=== PATIENT | female | born 1955 | race Caucasian/White ===

== ENCOUNTER → 2017-07-26 11:36 | Outpatient (CLI) | payer BC, SELFPAY ==
--- NOTE | 2017-07-26 | DI.CT.S_ITS ---
PROCEDURE: CT LUMBAR SPINE WO/W CON INDICATIONS: Low back pain with right greater than left sciatica symptoms TECHNIQUE: After the administration of intravenous Isovue contrast, 3 mm thick sections acquired through the levels of interest. Sagittal and coronal reformats were then constructed. For radiation dose reduction, the following was used: automated exposure control. COMPARISON: [facility], US, ABDOMEN COMPLETE, 04/06/2014, 12:58. [facility], MR, L-SPINE WITHOUT CONTRAST, 02/06/2009, 16:56. [facility], CR, THORACIC SPINE 2 VIEWS, 09/27/2014, 19:29. FINDINGS: Image quality: Excellent. Bones: Postoperative changes are seen, with bilateral pedicle screws at the L2-S1 levels. Iliac wing screws are also seen. The screws appear well placed. Disc spacers are seen at the L2-L3, L3-L4, L4-L5, and L5-S1 levels. Vertical fixation rods are seen. No findings of hardware failure or hardware loosening are seen. There has been removal of portions of the posterior elements. Bone grafting material is noted. 5 nonrib-bearing, lumbar type vertebral bodies are seen. No acute appearing fractures are seen. No suspicious lytic or blastic lesions can be seen. Mild levoconvex scoliotic curvature is noted.. T11-T12: Moderate loss of disc height is seen. Endplate irregularity and sclerosis are seen. Bridging anterior and left sided osteophytes are seen. Moderate disc bulge is seen. Moderate bilateral neural foraminal narrowing is seen. Mild central canal narrowing is seen. T12-L1: Severe loss of disc height is seen. A degree of bony fusion is seen centrally and inferiorly. Posteriorly directed endplate osteophytes are seen, particularly on the left side, as on series 2 image 17. Moderate central canal narrowing is seen. There is moderate to severe left-sided and moderate right-sided neural foraminal narrowing seen. L1-L2: Moderate loss of disc height is seen. Loss of disc signal is seen. Moderate disc bulge is seen, which is eccentric to the left. There is moderate right-sided and at least moderate left-sided neural foraminal narrowing seen. [id number]-[id number] central canal narrowing is seen. L2-L3: A degree of vertebral body fusion can be seen at this level. Endplate sclerosis is seen. Moderate disc bulge is seen at this level. There is moderate to severe bilateral neural foraminal narrowing seen. Moderate central canal narrowing is seen. L3-L4: A degree of vertebral body fusion can be seen at this level. Posteriorly directed endplate osteophytes are seen. There is mild to moderate left-sided and moderate right-sided neural foraminal narrowing seen. The central canal is widely patent. L4-L5: Mild anterolisthesis is seen at this level. Mujk-ep-dvpwhpek disc bulge is seen. There is mild to moderate left-sided and moderate to severe right-sided neural foraminal narrowing seen. The central canal is widely patent. L5-S1: A degree of vertebral body fusion is seen at this level. Posterior directed endplate osteophytes are seen. There is moderate to severe left-sided and moderate right-sided neural foraminal narrowing seen. No central canal narrowing can be seen. Soft tissues: Atherosclerotic calcification seen of the aorta and iliac arteries. The visualized posterior medial abdominal and retroperitoneal structures are unremarkable. On postcontrast imaging, no findings of significant abnormal enhancement can be seen. There is a mild degree of enhancement seen involving the postoperative bed, yet without abscess identified. IMPRESSION: Extensive postoperative changes are seen, without a significant postoperative abnormality identified. No abscess formation or other significant infectious complication is seen. Multiple levels of degenerative change are seen. Mild levoconvex lumbar scoliotic curvature. Dictated by: Gilbert Redd M.D. on 07/26/2017 at 13:39 Approved by: Gilbert Redd M.D. on 07/26/2017 at 13:49
== END ==
PROVIDERS: PCP Internal Medicine; Visit Provider Neurological Surgery
DX: M54.40 Lumbago with sciatica, unspecified side (principal); M51.36 Other intervertebral disc degeneration, lumbar region
CPT/HCPCS: 72133; Q9967

== ENCOUNTER → 2018-06-27 11:30 | Outpatient (CLI) | payer BC, SELFPAY ==
--- NOTE | 2018-06-27 11:35 | DI.CT.S_ITS ---
PROCEDURE: CT LUMBAR SPINE WO CON INDICATIONS: MIDLINE LOW BACK PAIN TECHNIQUE: Noncontrast 3 mm thick sections acquired from the T12 level to the sacrum. Sagittal and coronal reformats were constructed. In this patient, 3-D reformatted images were also performed. For radiation dose reduction, the following was used: automated exposure control. COMPARISON: [facility], MR, L-SPINE WITHOUT CONTRAST, 02/06/2009, 16:56. [facility], CT, CT LUMBAR SPINE WO/W CON, 07/26/2017, 11:37. FINDINGS: Image quality: Excellent. Bones: No acute vertebral body compression fractures. No suspicious lytic or blastic bony lesions. S-shaped scoliotic curvature is seen. Extensive postoperative changes are seen, with bilateral pedicle screws at L2, L3, L4, L5, S1, and the iliac wings. Vertical fixation rods are seen. Disc spacers are seen throughout the fused region. There has been removal of portions of the posterior elements. T11-T12: Moderate loss of disc height is seen. Vacuum disc phenomenon is seen at this level. There is a Schmorl's node seen involving the anterior aspect of the inferior endplate of T11. Bridging endplate osteophytes are seen, particularly anteriorly and on the left. There is moderate left-sided and mild right-sided neural foraminal narrowing seen. Minimal central canal narrowing is seen. When comparison is made with the prior examination, these findings are similar. T12-L1: There is fusion of this vertebral body. Endplate osteophytes are seen, which are more prominent on the left side. There is severe left-sided neural foraminal narrowing seen. Moderate right-sided neural foraminal narrowing is seen. Mild to moderate central canal narrowing is seen. No significant change from the prior. L1-L2: At least moderate loss of disc height is seen. Bridging anterior osteophytes are seen. There is a Schmorl's node seen involving the inferior endplate of L1 anteriorly, as on series 7 image 44. There is moderate right-sided and moderate to severe left-sided neural foraminal narrowing seen. Ehte-ca-mdqjvkha central canal narrowing is seen. Stable from the prior study. L2-L3: Moderate disc bulge is seen, which is eccentric to the right. There is moderate to severe right-sided and mild left-sided neural foraminal narrowing seen. Moderate central canal narrowing is seen. When comparison is made with the prior examination, these findings are similar. L3-L4: Moderate disc bulge is seen, which is eccentric to the left. There is moderate to severe right-sided and moderate left-sided neural foraminal narrowing seen. The central canal is widely patent. The degree of right-sided neural foraminal narrowing appears progressed compared to the prior. L4-L5: Moderate loss of disc height is seen. At least moderate disc bulge is seen. There is moderate to severe right-sided and moderate left-sided neural foraminal narrowing seen. The central canal is widely patent. Stable from the prior study. L5-S1: There is moderate to severe loss of disc height on the left. Moderate facet hypertrophy is seen, right worse than left. There is at least moderate bilateral neural foraminal narrowing seen. The central canal is widely patent. When comparison is made with the prior examination, these findings are similar. Soft tissues: No retroperitoneal masses or hematomas. Visualized aorta is normal in caliber. IMPRESSION: Extensive postoperative changes are seen, without a postoperative complication seen. Degenerative changes are seen, which are similar to the prior, although the degree of right-sided neural foraminal narrowing at L3-L4 appears progressed compared to the prior. Dictated by: Gilbert Redd M.D. on 06/27/2018 at 10:53 Approved by: Gilbert Redd M.D. on 06/27/2018 at 11:03
== END ==
PROVIDERS: PCP Internal Medicine; Visit Provider Orthopaedic Surgery
DX: M54.5 Low back pain (principal); M47.816 Spondylosis without myelopathy or radiculopathy, lumbar region; M51.46 Schmorl's nodes, lumbar region; Z98.1 Arthrodesis status
CPT/HCPCS: 72131

== ENCOUNTER 2019-08-13 20:44 | Emergency (ER) | payer BC, SELFPAY ==
[2019-08-13 20:55] VITALS: BP 170/96; PULSE 80; RESP 18; TEMP 36.5; O2SAT 98
--- NOTE | 2019-08-13 21:16 | PC.NURSE ---
Patient states she has had a rash on her upper arms for one month. Over past days it has become so itchy, she is unable to be distracted. Pt denies pain. Redness, and scabbing noted on bilateral upper arms. Pt states she has bombed house multiple times, washed sheets and cats weekly too. denies any other sx.
--- NOTE | 2019-08-13 21:23 | ED_ITS ---
HPI - Extremity Problem General Chief complaint: Extremity Problem,Nontraumatic Stated complaint: ARMS ARE ITCHY Time Seen by Provider: 08/13/19 21:17 Source: patient Mode of arrival: Ambulatory Limitations: no limitations History of Present Illness HPI Narrative: 63-year-old female here for evaluation of itching to bilateral upper arms. Patient states the symptoms have been going on for the past month. She initially thought that she had fleas due to the fact that she has multiple cats. She has tried many home remedies for this without any improvement. Has been using Benadryl without any improvement. She is here today because she states she does cannot take the itching anymore. Did start a new diabetes medication but that was been approximately 4 months ago. Otherwise no recent travel. No camping. No fevers. Itching is localized from her elbows to her shoulders on bilateral upper extremities. Related Data Home Medications Medication Instructions Recorded Confirmed Metformin Hydrochloride 500 mg PO Q DAY #0 08/12/09 (Glucophage) omeprazole 40 mg PO Q DAY #0 08/22/11 losartan [Cozaar] 100 mg PO QDAY #0 06/12/12 Previous Rx's Medication Instructions Recorded hydroxyzine HCl 25 mg PO QID PRN #20 tab 08/13/19 prednisone 50 mg PO DAILY 7 Days #7 tab 08/13/19 Allergies Allergy/AdvReac Type Severity Reaction Status Date / Time hydromorphone Allergy Severe SEVERE Unverified 05/31/17 11:46 HEADACHE morphine Allergy Mild ANXIETY Unverified 05/31/17 11:46 Sulfa (Sulfonamide Allergy Unknown Unverified 05/31/17 11:46 Antibiotics) Review of Systems Constitutional Constitutional: Denies fever(s) and Denies headache(s) Eyes Eyes: Denies itchy eyes ENT Ears, Nose, Mouth, and Throat: Denies headache(s) and Denies lip swelling Cardiovascular Cardiovascular: Denies chest pain and Denies dyspnea Respiratory Respiratory: Denies dyspnea and Denies wheezing Gastrointestinal Gastrointestinal: Denies abdominal pain, Denies nausea and Denies vomiting Musculoskeletal Musculoskeletal: Denies arthralgias Integumentary/Breasts Skin/Breast: Reports pruritus Neurologic Neurologic: Denies headache(s) Hematologic/Lymphatic Hematologic/Lymphatic: Denies easy bleeding and Denies easy bruising Allergic/Immunologic Allergic/Immunologic: Denies urticaria, Denies itchy eyes, Denies lip swelling, Denies seasonal rhinorrhea and Denies wheezing Patient History Medical History Diabetes (Acute) Social History Smoking Status: Former smoker Smoking Status: Former smoker Substance Use Type: does not use Exam Initial Vital Signs Initial Vital Signs: Vital Signs Temperature 97.7 F 08/13/19 20:55 Pulse Rate 80 08/13/19 20:55 Respiratory Rate 18 08/13/19 20:55 Blood Pressure 170/96 H 08/13/19 20:55 Pulse Oximetry 98 08/13/19 20:55 Const General: cooperative, healthy appearing and comfortable HENMT Head: normal to inspection and normocephalic Resp Effort & Inspection: normal respiratory effort Auscultation: clear to auscultation bilaterally Cardio Rate: regular rate Rhythm: regular rhythm Skin Other: Patient with mild redness located from elbows to shoulders anterior laterally bilateral upper extremities. Has excoriation left greater than right. No vesicles. No pustules. Neuro General: patient alert and patient awake Cognition: normal cognition Speech: speech normal Extrem General: normal to inspection and capillary refill normal Psych Appearance: grossly normal and well kempt Course Orders Ordered: Discontinued Medications Hydroxyzine Pamoate (Vistaril) 50 mg PO NOW ONE Stop: 08/13/19 21:57 Last Admin: 08/13/19 22:22 Dose: 50 mg Documented by: ROSANNA Loratadine (Claritin) 10 mg PO NOW ONE Stop: 08/13/19 21:55 Last Admin: 08/13/19 22:22 Dose: 10 mg Documented by: ROSANNA Prednisone (Deltasone) 40 mg PO NOW ONE Stop: 08/13/19 21:55 Last Admin: 08/13/19 22:22 Dose: 40 mg Documented by: ROSANNA Vital Signs Vital signs: Vital Signs - 8 hr 08/13/19 20:55 Temperature 97.7 F Pulse Rate 80 Respiratory Rate 18 Blood Pressure 170/96 H Pulse Oximetry 98 MDM - Extremity (Nontraumatic) MDM Narrative Medical decision making narrative: Unsure the exact etiology of the patient's symptoms however does not appear to be anaphylaxis. Does not appear to be infectious. Physical exam does not fit the appearance of RMSF, SJS, SSS, EM, scabies, bedbugs, ringworm she has no joint pain. No new exposures that can be directly linked to her symptoms. Will send home with a short course of steroids. She was informed this could increase her blood sugars she needs to monitor this. Also provide symptom treatment. Discussed the use of second- generation antihistamines. She is also given a prescription for Atarax. Will have her contact her primary provider for follow-up. She expressed understanding and agreement. Discharge Plan Departure Patient Disposition: Home Clinical Impression: Severe itching Discharge Date/Time: 08/13/19 22:26 Instructions: DI for Itching Activity Restrictions/Additional Instructions: Continue all of your medications as directed. The steroids we put you on today can cause her blood sugars to be elevated so be sure your checking these at home and taking her diabetes medications. I recommend that you purchase either Claritin or Zyrtec [id number] and take it as directed. The generic version of these medications as appropriate. Contact your primary provider for follow-up. Prescriptions: New prednisone 50 mg tablet 50 mg PO DAILY 7 Days Qty: 7 RF: 0 hydroxyzine HCl 25 mg tablet 25 mg PO QID PRN (Reason: itching) Qty: 20 RF: 0 No Action Metformin Hydrochloride (Glucophage) 500 mg PO Q DAY Qty: 0 RF: 0 omeprazole 40 MG capsule,delayed release(DR/EC) 40 mg PO Q DAY Qty: 0 RF: 0 losartan [Cozaar] 100 MG tablet 100 mg PO QDAY Qty: 0 RF: 0 Referrals: Geovany Walsh MD [Primary Care Provider] -
[2019-08-13] MEDS: predniSONE 20 MG TABLET 40 MG PO (22:22)
[2019-08-13] MEDS: LORATADINE 10 MG TABLET PO (22:22)
[2019-08-13] MEDS: hydrOXYzine pamoate 25 MG CAPSULE 50 MG PO (22:22)
== END 2019-08-13 22:26 | disposition home or self-care (01) ==
PROVIDERS: Emergency Provider Emergency Medicine; PCP Internal Medicine
DX: L29.9 Pruritus, unspecified (principal)
CPT/HCPCS: 99282; 99283

== ENCOUNTER 2019-09-24 07:59 | Emergency (ER) | payer BC, SELFPAY ==
[2019-09-24] VITALS (14 sets, daily range): BP systolic 156–191; BP diastolic 75–90; PULSE 77–85; RESP 18–20; TEMP 36.6; O2SAT 97–100; BMI 38.0
[2019-09-24 08:26] LABS: RBC Urine None Seen (0-5/HPF)
[2019-09-24 08:27] LABS: Appearance Urine UA SL CLOUDY; Bilirubin Urine UA NEGATIVE (NEGATIVE); Color Urine UA YELLOW; Glucose Urine UA 1+ g/dL (Negative); Ketones Urine UA NEGATIVE (NEGATIVE); Leukocyte Esterase Urine UA TRACE (NEGATIVE); Nitrite Urine UA NEGATIVE (Negative); Occult Blood Urine UA NEGATIVE (Negative); Protein Urine UA TRACE (Negative); Specific Gravity Urine UA 1.015 (1.000-1.035); Urobilinogen Urine UA 0.2 E.U./dL (0.2); pH Urine UA 5.5 (4.5-8.0)
[2019-09-24 08:34] LABS: Bacteria Urine Occasional (0-1); Squamous Epithelial Cell Urine 10-30 /HPF (0-5/HPF); WBC Urine 1-5/HPF (0-5/HPF)
--- NOTE | 2019-09-24 08:39 | ED_ITS ---
HPI - Abdominal Pain General Chief Complaint: Abdominal Pain Stated Complaint: abdominal pains Time Seen by Provider: 09/24/19 08:23 Source: patient Mode of arrival: Ambulatory Limitations: no limitations History of Present Illness HPI narrative: CC: periumbilical central abdominal pain HPI: The patient is a 64-year-old female who presents to the emergency department with central abdominal periumbilical pain that developed 2-3 days ago and has become progressively worse. The pain waxes and wanes is sharp in nature intermittent and crampy.. The pain radiates to her back. The patient admits to history of pancreatitis years ago and that she is a diabetic with hypertension. She denies a history of a stroke myocardial infarction COPD or asthma. She denies any recent fall or injury. She states that she had surgery on her back and was discharged from the hospital on Monday. She has had an appendectomy but her gallbladder has not been removed. She states that initially she had constipation because of the oxycodone that she is on but the last 2 days she has had normal bowel movements without diarrhea melena or hematochezia. She is on Zofran and has not had vomiting but has been intensely nauseous. She denies any shortness of breath cough chest pain palpitations dizziness. She has had no fever chills or sweats. She denies any headache at this time. She is a former smoker does not drink alcohol or use any marijuana products. Related Data Home Medications Medication Instructions Recorded Confirmed Metformin Hydrochloride 500 mg PO Q DAY #0 08/12/09 (Glucophage) omeprazole 40 mg PO Q DAY #0 08/22/11 losartan [Cozaar] 100 mg PO QDAY #0 06/12/12 Previous Rx's Medication Instructions Recorded hydroxyzine HCl 25 mg PO QID PRN #20 tab 08/13/19 cyclobenzaprine 10 mg PO TID PRN #15 tab 09/24/19 dicyclomine 20 mg PO QID PRN #16 tab 09/24/19 oxycodone 5 mg PO Q6H PRN #12 tab 09/24/19 Allergies Allergy/AdvReac Type Severity Reaction Status Date / Time hydromorphone Allergy Severe SEVERE Verified 09/24/19 08:50 HEADACHE morphine Allergy Mild ANXIETY Verified 09/24/19 08:50 Sulfa (Sulfonamide Allergy Unknown Verified 09/24/19 08:50 Antibiotics) Review of Systems Review of Systems Narrative: Review of systems are all negative except for those mentioned in the history of present illness. Patient History Medical History Diabetes (Acute) Social History Smoking Status: Former smoker Smoking Status: Former smoker alcohol intake frequency: 0-2 drinks per day Substance Use Type: does not use Exam Narrative Exam Narrative: PHYSICAL EXAM: CONSTITUTIONAL: Awake, Alert, Oriented, Coherent, Cooperative. Patient is in moderate pain and discomfort. She is restless or pacing in the room.. HEAD: AT/NC EENT: PERRL, FROM of eyes, no discharge, no nystagmus no scleral icterus no conjunctival pallor NOSE:No epistaxis or nasal drainage MOUTH:Oral mucosa is moist and pink, posterior pharynx is without erythema or exudate. NECK: Supple, no obvious JVD, Trachea is midline without stridor, no palpable LN. SPINE: Palpation of the cervical, Thoracic, Sacral spine reveals no gross deformity or tenderness. No CVA tenderness. The patient has 2 surgical incisions over the lower lumbar spine. This is nontender no erythema no b leeding or drainage THORAX: No deformity, retractions, chest wall tenderness. LUNGS: Clear, symmetrical breath sounds without respiratory distress. HEART: Normal heart tones, regular rhythm and rate without murmur. ABDOMEN: Distended mildly tympanitic tender in the epigastrium and periumbilical area without guarding rebound or rigidity no palpable organomegaly. LYMPHATIC: no palpable lymph nodes or spleen. EXTREMITIES: No edema, deformity, tenderness or cyanosis. SKIN: No rash, bruising, petechiae or purpura. NEURO: Awake, alert, oriented, conversive, cranial nerves II-XII are symmetrical , moves all 4 extremities and is ambulatory. MENTAL HEALTH: The patient is anxious and pacing in the room unable to find a comfortable position. Initial Vital Signs Initial Vital Signs: Vital Signs Temperature 97.9 F 09/24/19 08:11 Pulse Rate 81 09/24/19 08:11 Respiratory Rate 20 09/24/19 08:11 Blood Pressure 183/90 H 09/24/19 08:11 Pulse Oximetry 99 09/24/19 08:11 Course Course Course Narrative: 0932: The patient's pain and discomfort was not relieved by the Toradol. She states that hydromorphone causes intense nausea and vomiting and morphine causes mild anxiety. The patient will be administered Zofran 4 mg IV push Benadryl 25 mg IV push and morphine 4 mg IVP he will try the morphine for her pain and discomfort. 1030: CT of the patient's abdomen with IV contrast revealed IMPRESSION: Unremarkable CT, without an imaging explanation found for the patient's presenting history. Normal appearing pancreas. No findings of stones or obstructive uropathy are seen. No dilated loops of bowel are seen. Incidental note is made of: Coronary artery calcification Fatty liver infiltration Extensive spinal fixation hardware Prominent left ovarian vein. A prominent left ovarian vein can be seen. Dictated by: Giblert Redd M.D. on 09/24/2019 at 8:26 Approved by: Gilbert Redd M.D. on 09/24/2019 at 8:29 1230: The ultrasound of the patient's pelvis revealed: IMPRESSION: Normal pelvic ultrasound. Neither ovary can be seen. No adnexal masses can be seen on either side. Dictated by: Gilbert Redd M.D. on 09/24/2019 at 10:21 Approved by: Gilbert Redd M.D. on 09/24/2019 at 10:22 1300: The patient was informed that her CT of her abdomen was negative for any acute pathology as well as her ultrasound of her pelvis. She was informed that no significant laboratory chemistry was abnormal. She will be discharged home and instructed to increase her oxycodone to 2 5 mg tablets every 6 hours for pain and discomfort, Bentyl 20 mg every 6 hours as needed for abdominal cramps and pain, and to hold the meth a carbon all and try cyclobenzaprine 10 mg 3 times a day as needed for muscle spasms. Orders Ordered: ED Orders 09/24/19 10:44 US pelvic complete Stat Discontinued Medications Dicyclomine HCl (Bentyl) 20 mg PO NOW ONE Stop: 09/24/19 08:39 Last Admin: 09/24/19 08:57 Dose: 20 mg Documented by: LENA Diphenhydramine HCl (Benadryl) 25 mg IV NOW ONE Stop: 09/24/19 09:32 Last Admin: 09/24/19 09:39 Dose: 25 mg Documented by: VERA Sodium Chloride (Normal Saline 0.9%) 1,000 mls @ 1,000 mls/hr IV BOLUS ONE Stop: 09/24/19 09:33 Last Infusion: 09/24/19 10:05 Dose: 0 mls/hr Documented by: Admin: 09/24/19 08:53 Dose: 1,000 mls/hr Documented by: LENA Ketorolac Tromethamine (Toradol) 30 mg IV NOW ONE Stop: 09/24/19 08:37 Last Admin: 09/24/19 08:53 Dose: 30 mg Documented by: LENA Morphine Sulfate (Morphine) 4 mg IV NOW ONE Stop: 09/24/19 09:32 Last Admin: 09/24/19 09:39 Dose: 4 mg Documented by: VERA Morphine Sulfate (Morphine) 4 mg IV NOW ONE Stop: 09/24/19 10:37 Last Admin: 09/24/19 10:42 Dose: 4 mg Documented by: VERA Ondansetron HCl (Zofran) 4 mg IV NOW ONE Stop: 09/24/19 09:32 Last Admin: 09/24/19 09:38 Dose: 4 mg Documented by: VERA Vital Signs Vital signs: Vital Signs - 8 hr 09/24/19 11:25 09/24/19 13:27 Pulse Rate 77 Respiratory Rate 20 18 Blood Pressure 156/75 H Pulse Oximetry 100 MDM - Abdominal Pain Medical Records Attestation: I reviewed the patient's medical records. Lab Data Attestation: I reviewed the patient's lab results. Result diagrams: 09/24/19 08:15 09/24/19 08:15 Labs: Lab Results 09/24/19 09/24/19 09/24/19 Range/Units 08:15 08:15 08:15 WBC 9.8 (4.5-11.0) X10^3/uL RBC 5.09 (4.0-5.2) X10^6/uL Hgb 12.5 (12.0-16.0) g/dL Hct 38.5 (36-46) % MCV 75.6 L (80-100) fL MCH 24.5 L (26-34) PG MCHC 32.5 (30-36) % RDW 16.9 H (11.6-14.8) % Plt Count 348 (150-400) X10^3/uL Neut % (Auto) 58.8 (50-75) % Lymph % (Auto) 25.8 (25-40) % [place] % (Auto) 9.4 (3-14) % Eos % (Auto) 5.1 H (2-4) % Baso % (Auto) 0.9 (0-2) % Neut # (Auto) 5700 (1863-1343) /uL Lymph # (Auto) 2500 (3452-5721) /uL [place] # (Auto) 900 (0-900) /uL Eos # (Auto) 500 H (0-450) /uL Baso # (Auto) 100 (0-100) /uL Sodium 137 (137-145) mmol/L Potassium 4.0 (3.4-5.1) mmol/L Chloride 101 (98-107) mmol/L Carbon Dioxide 31 (22-32) mmol/L BUN 13 (7-17) mg/dL Creatinine 0.48 L (0.52-1.04) mg/dL Estimated GFR > 60.0 (>60) mL/min BUN/Creatinine Ratio 27.1 H (6-22) Glucose 191 H (80-110) mg/dL Calcium 9.9 (8.4-10.2) mg/dL Total Bilirubin 0.4 (0.2-1.3) mg/dL AST 33 (14-36) IU/L ALT 50 H (<35) IU/L Alkaline Phosphatase 104 (38-126) U/L Total Protein 7.3 (6.3-8.2) g/dL Albumin 4.4 (3.5-5.0) g/dL Globulin 2.9 (1.7-4.1) g/dL Albumin/Globulin Ratio 1.5 (1.0-2.8) Lipase 99 (23-300) U/L Urine Color Yellow Urine Appearance Sl cloudy Urine pH 5.5 (4.5-8.0) Ur Specific [place] 1.015 (1.000-1.035) Urine Protein Trace H (Negative) Urine Glucose (UA) 1+ H (Negative) g/dL Urine Ketones Negative (NEGATIVE) Urine Occult Blood Negative (Negative) Urine Nitrate Negative (Negative) Urine Bilirubin Negative (NEGATIVE) Urine Urobilinogen 0.2 (0.2) E.U./dL Ur Leukocyte Esterase Trace H (NEGATIVE) Urine RBC None seen (0-5/HPF) Urine WBC 1-5/hpf (0-5/HPF) Ur Squamous Epith Cells 10-30 /hpf H (0-5/HPF) Urine Bacteria Occasional (0-1) (None) Ur Culture Indicated? Culture not indicate Micro UA Comment Point of care testing: Urine Dip Bedside Urine Glucose 100 mg/dl Bedside Urine Bilirubin - Negative Bedside Urine Ketone - Negative Urine Specific [place] 1.020 Bedside Urine Occult Blood - Negative Bedside Urine pH 6.0 Bedside Urine Protein + 30 Bedside Urine Urobilinogen - Negative Bedside Urine Nitrite - Negative Bedside Urine Leukocytes + 70 Esterase Discharge Plan Departure Patient Disposition: Home Clinical Impression: Abdominal pain, periumbilic Discharge Date/Time: 09/24/19 13:30 Instructions: DI for Abdominal Pain-Adult Activity Restrictions/Additional Instructions: 1. As we discussed your CT scan of the abdomen as well as the ultrasound of your pelvis did not reveal any acute pathology that explains your pain and discomfort at this time. Your laboratory chemistries did not reveal any acute ab normality is that explain your pain and discomfort. 2. You need to be read checked and re-evaluated in 48-72 hours. With the change in medications if your pain becomes intolerable I can only advise you to come back to the emergency department to be of re-evaluated. Sometimes with a little bit of time things change and show up and that is why you will need to be re- evaluated. 3. Increase your oxycodone from 5 mg every 4-6 hours to 10 mg every 6 hours or 2 tablets 4. Continue to take your Zofran for nausea and vomiting at home. 5. For pain and cramps take dicyclomine 20 mg every 6 hours as needed. 6. For continued pain and discomfort as well as muscle spasms hold the Methacarb inol and try cyclobenzaprine 10 mg 3 times a day. 7. As previously mentioned if you develop a intolerable pain and discomfort uncontrolled nausea and vomiting fever chest pain shortness of breath feeling faint or passing-out you need to return to the emergency department. Prescriptions: New oxycodone 5 mg tablet 5 mg PO Q6H PRN (Reason: pain) Qty: 12 RF: 0 dicyclomine 20 mg tablet 20 mg PO QID PRN (Reason: abdominal pain and cramps) Qty: 16 RF: 0 cyclobenzaprine 10 mg tablet 10 mg PO TID PRN (Reason: muscle spasm) Qty: 15 RF: 0 No Action Metformin Hydrochloride (Glucophage) 500 mg PO Q DAY Qty: 0 RF: 0 omeprazole 40 MG capsule,delayed release(DR/EC) 40 mg PO Q DAY Qty: 0 RF: 0 losartan [Cozaar] 100 MG tablet 100 mg PO QDAY Qty: 0 RF: 0 hydroxyzine HCl 25 mg tablet 25 mg PO QID PRN (Reason: itching) Qty: 20 RF: 0 Referrals: Neha Park ARNP [Primary Care Provider] -
[2019-09-24 08:45] LABS: Add Manual Diff / Slide Review NO; Basophils Absolute Auto 100 /uL (0-100); Basophils Percent Auto 0.9 % (0-2); Eosinophils Absolute Auto 500 /uL (0-450); Eosinophils Percent Auto 5.1 % (2-4); Hematocrit 38.5 % (36-46); Hemoglobin 12.5 g/dL (12.0-16.0); Lymphocytes Absolute Auto 2500 /uL (1100-4500); Lymphocytes Percent Auto 25.8 % (25-40); Mean Corpuscular HGB Conc 32.5 % (30-36); Mean Corpuscular Hemoglobin 24.5 PG (26-34); Mean Corpuscular Volume 75.6 fL (80-100); Monocytes Absolute Auto 900 /uL (0-900); Monocytes Percent Auto 9.4 % (3-14); Neutrophils Absolute Auto 5700 /uL (1500-7000); Neutrophils Percent Auto 58.8 % (50-75); Platelet Count 348 X10^3/uL (150-400); Red Blood Cell Count 5.09 X10^6/uL (4.0-5.2); Red Cell Distribution Width 16.9 % (11.6-14.8); White Blood Cell Count 9.8 X10^3/uL (4.5-11.0)
[2019-09-24 08:51] LABS: Alanine Aminotransferase 50 IU/L (<35); Albumin 4.4 g/dL (3.5-5.0); Albumin Globulin Ratio 1.5 (1.0-2.8); Alkaline Phosphatase 104 U/L (38-126); Aspartate Aminotransferase 33 IU/L (14-36); BUN Creatinine Ratio 27.1 (6-22); Bilirubin Total 0.4 mg/dL (0.2-1.3); Blood Urea Nitrogen 13 mg/dL (7-17); Calcium 9.9 mg/dL (8.4-10.2); Carbon Dioxide 31 mmol/L (22-32); Chloride 101 mmol/L (98-107); Estimated Glomerular Filt Rate > 60.0 mL/min (>60); Globulin 2.9 g/dL (1.7-4.1); Glucose 191 mg/dL (80-110); HEMOLYSIS < 15 (0-50); Lipase 99 U/L (23-300); Sodium 137 mmol/L (137-145); Total Protein 7.3 g/dL (6.3-8.2)
[2019-09-24] MEDS: KETOROLAC 60 MG/2 ML VIAL 30 MG IV (08:53)
[2019-09-24] MEDS: SODIUM CHLORIDE 0.9% 1,000 ML 1000 ML IV (08:53)
--- NOTE | 2019-09-24 08:56 | PC.NURSE ---
Reports increasing abd pain for the past couple days. Denies urinary symptoms, nausea or vomiting
[2019-09-24] MEDS: DICYCLOMINE 10 MG CAPSULE 20 MG PO (08:57)
--- NOTE | 2019-09-24 08:59 | DI.CT.S_ITS ---
PROCEDURE: CT ABDOMEN PELVIS W CON INDICATIONS: tender epigastrium and periumbilical abdomen with bloating TECHNIQUE: After the administration of intravenous contrast, 5 mm thick sections acquired from the diaphragm to the symphysis. 5 mm coronal and sagittal reformats were acquired. For radiation dose reduction, the following was used: automated exposure control, adjustment of mA and/or kV according to patient size. COMPARISON: [facility], CT, ABDOMEN/PELVIS WITH CONTRAST, 04/05/2014, 22:48. [facility], CT, CT LUMBAR SPINE WO CON, 06/27/2018, 11:34. [facility], CT, ABDOMEN/PELVIS WITH CONTRAST, 09/26/2013, 13:45. [facility], CT, ABDOMEN/PELVIS WITH CONTRAST, 08/22/2011, 6:27. [facility], [place], ABDOMEN COMPLETE, 04/06/2014, 12:58. FINDINGS: Image quality: Excellent. ABDOMEN: Lung bases: Lung bases are clear. Heart size is normal. Coronary artery calcifications are seen. Solid organs: Liver is normal in size and enhancement. Diffuse fatty liver infiltration is noted. Gallbladder wall is not thickened. Biliary system is non dilated. Pancreas enhances normally. No significant peripancreatic inflammatory changes are seen. Spleen is normal in size and enhancement. No adrenal nodules. Kidneys demonstrate normal size and enhancement, without hydronephrosis. Peritoneum and bowel: Bowel loops demonstrate normal wall thickness and caliber. No free fluid or air. Nodes and vessels: No retroperitoneal or mesenteric adenopathy by size criteria. Aorta and inferior vena cava are normal in size. Atherosclerotic calcification is noted. Miscellaneous: No ventral hernias. PELVIS: Genitourinary: Bladder wall thickness is normal. The uterus appears normal for age. No adnexal masses are seen. Miscellaneous: No inguinal hernias or adenopathy. Bones: No suspicious bony lesions. Lower thoracic fixation hardware and lumbosacral fixation hardware can be seen. There has been removal of portions of the posterior elements. No vertebral body compression fractures. Extensive bony degenerative changes are seen. IMPRESSION: Unremarkable CT, without an imaging explanation found for the patient's presenting history. Normal appearing pancreas. No findings of stones or obstructive uropathy are seen. No dilated loops of bowel are seen. Incidental note is made of: Coronary artery calcification Fatty liver infiltration Extensive spinal fixation hardware Prominent left ovarian vein. A prominent left ovarian vein can be seen. Dictated by: Gilbert Redd M.D. on 09/24/2019 at 8:26 Approved by: Gilbert Redd M.D. on 09/24/2019 at 8:29
[2019-09-24] MEDS: ONDANSETRON 4 MG/2 ML INJ IV (09:38)
[2019-09-24] MEDS: diphenhydrAMINE 50 MG/ML VIAL 25 MG IV (09:39)
[2019-09-24] MEDS: MORPHINE 4 MG/ML INJ IV ×2 (09:39→10:42)
--- NOTE | 2019-09-24 10:44 | DI.US.S_ITS ---
PROCEDURE: US PELVIC COMPLETE INDICATIONS: PAIN; POSSIBLE OVARIAN TORSION TECHNIQUE: Real-time scanning was performed of the pelvic organs, with image documentation. Additional endovaginal scanning was necessary due to incomplete visualization of the adnexal and endometrial structures by transabdominal scanning. COMPARISON: [facility], CT, CT ABDOMEN PELVIS W CON, 09/24/2019, 8:50. FINDINGS: Transabdominal scanning: Limited scanning through the kidneys shows no hydronephrosis. No pathologic free abdominal or pelvic fluid. Endovaginal scanning: Uterus: Uterus is normal in size at 5.3 x 3.6 x 5.1 cm. The endometrium measures 4 mm in combined thickness. Ovaries: Neither ovary is seen. No adnexal masses can be seen on either side. IMPRESSION: Normal pelvic ultrasound. Neither ovary can be seen. No adnexal masses can be seen on either side. Dictated by: Gilbert Redd M.D. on 09/24/2019 at 10:21 Approved by: Gilbert Redd M.D. on 09/24/2019 at 10:22
== END 2019-09-24 13:30 | disposition home or self-care (01) ==
PROVIDERS: Emergency Provider Emergency Medicine; PCP Nurse Practitioner
DX: R10.33 Periumbilical pain (principal); E11.9 Type 2 diabetes mellitus without complications; I10 Essential (primary) hypertension
CPT/HCPCS: 36415; 74177; 76830; 76856; 80053; 81001; 81003; 83690; 85025; 96361; 96374; 96375; 99284; J1200; J1885; J2270; J2405; Q9967

== ENCOUNTER 2019-09-29 06:17 | Emergency (ER) | payer BC, SELFPAY ==
--- NOTE | 2019-09-29 06:21 | ED_ITS ---
HPI - Back Pain/Injury General Chief Complaint: Back Pain/Injury Stated Complaint: back pain, had back surgery [id number] Time Seen by Provider: 09/29/19 06:21 Source: patient Mode of arrival: Ambulatory Limitations: no limitations History of Present Illness HPI Narrative: 64-year-old female nonsmoker with recent thoracic back surgery presents with a chief complaint of severe spasms in the paraspinal musculature of her upper back. She denies any specific injury. She has had no fever or chills. She states that she had been feeling great and had a fantastic day yesterday but ran out of her muscle relaxer and is now having out rages pain. She she denies any numbness, tingling or weakness. She denies any difficulty controlling bowel or bladder. Her pain is worse with motion and improves with rest. MD Complaint: back pain Onset (ago): hour(s) Duration: constant Similar Symptoms Previously: Yes Location: thoracic spine Severity: moderate Quality: spasming Radiation: none Relieving factors: immobilization Exacerbating factors: movement Associated symptoms: denies other symptoms Treatments prior to arrival: heat therapy Related Data Home Medications Medication Instructions Recorded Confirmed Metformin Hydrochloride 500 mg PO Q DAY #0 08/12/09 (Glucophage) omeprazole 40 mg PO Q DAY #0 08/22/11 losartan [Cozaar] 100 mg PO QDAY #0 06/12/12 Previous Rx's Medication Instructions Recorded hydroxyzine HCl 25 mg PO QID PRN #20 tab 08/13/19 cyclobenzaprine 10 mg PO TID PRN #15 tab 09/24/19 dicyclomine 20 mg PO QID PRN #16 tab 09/24/19 oxycodone 5 mg PO Q6H PRN #12 tab 09/24/19 cyclobenzaprine 10 mg PO TID PRN #14 tab 09/29/19 tramadol [Ultram] 50 mg PO Q8H PRN #10 tab 09/29/19 Allergies Allergy/AdvReac Type Severity Reaction Status Date / Time hydromorphone Allergy Severe SEVERE Verified 09/24/19 08:50 HEADACHE morphine Allergy Mild ANXIETY Verified 09/24/19 08:50 Sulfa (Sulfonamide Allergy Unknown Verified 09/24/19 08:50 Antibiotics) Review of Systems Constitutional Constitutional: Denies chills, Denies fatigue, Denies fever(s), Denies frequent falls, Denies lethargy and Denies weakness Eyes Eyes: Denies change in vision, Denies eye discharge, Denies irritation and David es loss of vision ENT Ears, Nose, Mouth, and Throat: Denies change in voice, Denies dizziness, Denies neck pain, Denies sore throat and Denies throat swelling Cardiovascular Cardiovascular: Denies chest pain, Denies irregular heart rhythm, Denies lightheadedness, Denies palpitations, Denies dyspnea, Denies dyspnea on exertion and Denies orthopnea Respiratory Respiratory: Denies cough, Denies dyspnea, Denies dyspnea on exertion and Denies wheezing Gastrointestinal Gastrointestinal: Denies abdominal pain, Denies change in bowel habits, Denies diarrhea, Denies nausea and Denies vomiting Musculoskeletal Musculoskeletal: Reports back pain, Denies neck pain and Denies numbness Integumentary/Breasts Skin/Breast: Denies pruritus, Denies erythema, Denies rash and Denies wounds Neurologic Neurologic: Denies behavioral changes, Denies confusion, Denies dizziness, Denies frequent falls, Denies loss of vision, Denies numbness and Denies weakness Psychiatric Psychiatric: Denies anxiety, Denies behavioral changes, Denies confusion, Denies depression, Denies homicidal ideation and Denies suicidal ideation Endocrine Endocrine: Denies fatigue, Denies flushing and Denies palpitations Hematologic/Lymphatic Hematologic/Lymphatic: Denies easy bruising Allergic/Immunologic Allergic/Immunologic: Denies urticaria, Denies throat swelling and Denies wheezing Patient History Medical History Diabetes (Acute) Social History Smoking Status: Former smoker Smoking Status: Former smoker alcohol intake frequency: 0-2 drinks per day Substance Use Type: does not use Exam Narrative Exam Narrative: GENERAL: [64] year old patient appears stated age. Well- nourished, well-developed patient, in obvious distress, pacing and rubbing her upper back HEAD: Atraumatic. Normocephalic. EYES: Pupils equal round and reactive. Extraocular motions intact. No scleral icterus. No injection or drainage. ENT: Nose without bleeding, purulent drainage. Throat without erythema, tonsillar hypertrophy or exudate. Airway patent. NECK: Trachea midline. Non tender CARDIOVASCULAR: Regular rate and rhythm without murmurs, gallops, or rubs. RESPIRATORY: Clear to auscultation. Breath sounds equal bilaterally. No wheezes, rales, or rhonchi. GASTROINTESTINAL: Abdomen soft, non-tender, nondistended. EXTREMITIES: No edema or joint tenderness. BACK: force variation equipment tender but free of any obvious external abnormalities. Patient exam notes decreased range of motion and muscle spasm, but no CVA tenderness, or vertebral point tenderness. There are no symptoms of cauda equina such as saddle anesthesia, and decreased reflexes, decreased sensation or strength. Incisions are clean, dry and intact. No redness, swelling or induration. NEURO: AOx3. SKIN: No rash or erythema of visible areas Initial Vital Signs Initial Vital Signs: Vital Signs Temperature 97.2 F L 09/29/19 06:34 Pulse Rate 90 09/29/19 06:34 Respiratory Rate 28 H 09/29/19 06:34 Blood Pressure 146/103 H 09/29/19 06:34 Pulse Oximetry 100 09/29/19 06:34 Course Orders Ordered: Discontinued Medications Cyclobenzaprine [facility] (Flexer[facility] 10 Mg Prepack) [facility] ONE Stop: 09/29/19 06:41 Last Admin: 09/29/19 06:52 Dose: 1 bottle Documented by: DANNY Morphine Sulfate (Morphine) 4 mg IM NOW ONE Stop: 09/29/19 06:41 Last Admin: 09/29/19 06:52 Dose: 4 mg Documented by: DANNY Vital Signs Vital signs: Vital Signs - 8 hr 09/29/19 06:34 Temperature 97.2 F L Pulse Rate 90 Respiratory Rate 28 H Blood Pressure 146/103 H Pulse Oximetry 100 MDM - Back Pain/Injury Lab Data Labs: Lab Results 09/29/19 Range/Units 06:35 Urine RBC 0-1/hpf (0-5/HPF) Urine WBC 10-30/hpf H (0-5/HPF) Ur Squamous Epith Cells 1-5 /hpf D (0-5/HPF) Ur Transition Epith Cell 1-5/hpf (0-5/HPF) Ur Renal Epithelial Cell 0-1/hpf (0-1/HPF) Urine Bacteria Many (>30) H (None) Ur Culture Indicated? Specimen cultured Urine Dip Bedside Urine Glucose Negative Bedside Urine Bilirubin - Negative Bedside Urine Ketone - Negative Urine Specific [place] 1.010 Bedside Urine Occult Blood + Bedside Urine Protein + 30 Bedside Urine Urobilinogen - Negative Bedside Urine Nitrite - Negative Bedside Urine Leukocytes +++ 500 Esterase Discharge Plan Departure Patient Disposition: Home Clinical Impression: Strain of lumbar region Qualifiers: Encounter type: initial encounter Qualified Code(s): S39.012A - Strain of muscle, fascia and tendon of lower back, initial encounter Discharge Date/Time: 09/29/19 07:48 Instructions: DI for Back Spasm Activity Restrictions/Additional Instructions: *You have been diagnosed with [back pain with spasm] *What to do: *Take medications as directed *Follow up with your primary care provider in 2-3 days, call for an appointment. Let them know you were seen in the Emergency Department and that we ask that you be seen in follow up *Return to ER if you should have any new, worsening or concerning symptoms Prescriptions: New cyclobenzaprine 10 mg tablet 10 mg PO TID PRN (Reason: muscle spasm) Qty: 14 RF: 0 tramadol [Ultram] 50 mg tablet 50 mg PO Q8H PRN (Reason: pain) Qty: 10 RF: 0 No Action Metformin Hydrochloride (Glucophage) 500 mg PO Q DAY Qty: 0 RF: 0 omeprazole 40 MG capsule,delayed release(DR/EC) 40 mg PO Q DAY Qty: 0 RF: 0 losartan [Cozaar] 100 MG tablet 100 mg PO QDAY Qty: 0 RF: 0 hydroxyzine HCl 25 mg tablet 25 mg PO QID PRN (Reason: itching) Qty: 20 RF: 0 oxycodone 5 mg tablet 5 mg PO Q6H PRN (Reason: pain) Qty: 12 RF: 0 dicyclomine 20 mg tablet 20 mg PO QID PRN (Reason: abdominal pain and cramps) Qty: 16 RF: 0 cyclobenzaprine 10 mg tablet 10 mg PO TID PRN (Reason: muscle spasm) Qty: 15 RF: 0 Referrals: Neha Park ARNP [Primary Care Provider] -
[2019-09-29 06:34] VITALS: BP 146/103; PULSE 90; RESP 28; TEMP 36.2; O2SAT 100; BMI 38.0
[2019-09-29] MEDS: MORPHINE 4 MG/ML INJ IM (06:52)
[2019-09-29] MEDS: CYCLOBENZAPRINE 10 MG PREPACK 1 BOTTLE MISC (06:52)
[2019-09-29 08:13] LABS: RBC Urine 0-1/HPF (0-5/HPF); Renal Epithelial Cells Urine 0-1/HPF (0-1/HPF); Squamous Epithelial Cell Urine 1-5 /HPF (0-5/HPF); Transitional Epi Cells Urine 1-5/HPF (0-5/HPF); WBC Urine 10-30/HPF (0-5/HPF)
[2019-09-29 08:14] LABS: Bacteria Urine Many (>30); Culture Indicated Urine Specimen Cultured
== END 2019-09-29 07:48 | disposition home or self-care (01) ==
PROVIDERS: Emergency Provider Emergency Medicine; PCP Nurse Practitioner
DX: S39.012A Strain of muscle, fascia and tendon of lower back, initial encounter (principal); M62.830 Muscle spasm of back
CPT/HCPCS: 81003; 81015; 87086; 96372; 99283; J2270

== ENCOUNTER → 2020-03-02 12:52 | Outpatient (CLI) | payer BC, SELFPAY ==
[2020-03-02 13:57] LABS: Add Manual Diff / Slide Review NO; Basophils Absolute Auto 100 /uL (0-100); Eosinophils Absolute Auto 400 /uL (0-450); Eosinophils Percent Auto 4.7 % (2-4); Hematocrit 39.3 % (36-46); Lymphocytes Absolute Auto 2300 /uL (1100-4500); Lymphocytes Percent Auto 26.9 % (25-40); Mean Corpuscular HGB Conc 33.2 % (30-36); Mean Corpuscular Volume 78.4 fL (80-100); Monocytes Absolute Auto 500 /uL (0-900); Monocytes Percent Auto 5.5 % (3-14); Neutrophils Absolute Auto 5300 /uL (1500-7000); Neutrophils Percent Auto 61.9 % (50-75); Platelet Count 295 X10^3/uL (150-400); Red Blood Cell Count 5.01 X10^6/uL (4.0-5.2); Red Cell Distribution Width 15.2 % (11.6-14.8); White Blood Cell Count 8.5 X10^3/uL (4.5-11.0)
[2020-03-02 14:24] LABS: Hemoglobin A1C% w Est Avg Glu 8.8 % (4.0-6.0)
[2020-03-02 14:51] LABS: Blood Urea Nitrogen 11 mg/dL (7-17); Calcium 9.5 mg/dL (8.4-10.2); Carbon Dioxide 28 mmol/L (22-32); Chloride 101 mmol/L (98-107); Estimated Glomerular Filt Rate > 60.0 mL/min (>60); Glucose 241 mg/dL (80-110); HEMOLYSIS < 15 (0-50); Potassium 4.3 mmol/L (3.4-5.1); Sodium 136 mmol/L (137-145)
== END ==
PROVIDERS: PCP Nurse Practitioner; Referring Provider Orthopaedic Surgery; Visit Provider Orthopaedic Surgery
DX: Z01.818 Encounter for other preprocedural examination (principal); M25.562 Pain in left knee; R73.9 Hyperglycemia, unspecified; Z01.812 Encounter for preprocedural laboratory examination
CPT/HCPCS: 36415; 80048; 83036; 85025; 93005; 93010

== ENCOUNTER 2020-09-24 11:34 | Emergency (ER) | payer BC, SELFPAY ==
[2020-09-24 11:40] VITALS: BP 132/72; PULSE 77; RESP 18; TEMP 36.7; O2SAT 99; BMI 35.6
--- NOTE | 2020-09-24 11:40 | DI.RAD.S_ITS ---
PROCEDURE: XR CHEST 1V INDICATIONS: chest pain TECHNIQUE: One view of the chest was acquired. COMPARISON: None. FINDINGS: Surgical changes and devices: None. Lungs and pleura: Lungs are clear. No pleural effusions or pneumothorax. Mediastinum: Mediastinal contours appear normal. Heart size is normal. Bones and chest wall: No suspicious bony lesions. Overlying soft tissues appear unremarkable. IMPRESSION: Prior spine fusion surgery at the midthoracic spine. Otherwise normal for age. Dictated by: Javier Crenshaw M.D. on 09/24/2020 at 12:15 Approved by: Javier Crenshaw M.D. on 09/24/2020 at 12:16
[2020-09-24 12:38] LABS: Add Manual Diff / Slide Review NO; Basophils Absolute Auto 0 /uL (0-100); Basophils Percent Auto 0.6 % (0-2); Eosinophils Absolute Auto 300 /uL (0-450); Eosinophils Percent Auto 4.4 % (2-4); Hematocrit 41.2 % (36-46); Hemoglobin 13.9 g/dL (12.0-16.0); Lymphocytes Absolute Auto 2400 /uL (1100-4500); Lymphocytes Percent Auto 33.2 % (25-40); Mean Corpuscular HGB Conc 33.7 % (30-36); Mean Corpuscular Hemoglobin 27.6 PG (26-34); Mean Corpuscular Volume 82.1 fL (80-100); Monocytes Absolute Auto 500 /uL (0-900); Monocytes Percent Auto 6.7 % (3-14); Neutrophils Absolute Auto 4000 /uL (1500-7000); Neutrophils Percent Auto 55.1 % (50-75); Platelet Count 276 X10^3/uL (150-400); Red Blood Cell Count 5.02 X10^6/uL (4.0-5.2); Red Cell Distribution Width 13.8 % (11.6-14.8); White Blood Cell Count 7.2 X10^3/uL (4.5-11.0)
[2020-09-24 13:01] LABS: Alanine Aminotransferase 57 IU/L (<35); Albumin 4.3 g/dL (3.5-5.0); Albumin Globulin Ratio 1.5 (1.0-2.8); Alkaline Phosphatase 91 U/L (38-126); Aspartate Aminotransferase 38 IU/L (14-36); BUN Creatinine Ratio 21.6 (6-22); Bilirubin Total 0.4 mg/dL (0.2-1.3); Blood Urea Nitrogen 11 mg/dL (7-17); Calcium 9.7 mg/dL (8.4-10.2); Carbon Dioxide 26 mmol/L (22-32); Chloride 105 mmol/L (98-107); Creatine Kinase 119 U/L (30-135); Estimated Glomerular Filt Rate > 60.0 mL/min (>60); Globulin 2.8 g/dL (1.7-4.1); Glucose 160 mg/dL (80-110); HEMOLYSIS < 15 (0-50); Lipase 100 U/L (23-300); Potassium 3.9 mmol/L (3.4-5.1); Sodium 139 mmol/L (137-145); Total Protein 7.1 g/dL (6.3-8.2)
[2020-09-24 13:12] LABS: Troponin I < 0.012 ng/mL (0.01-0.034)
[2020-09-24 13:42] LABS: CKMB % Relative Index 2.1 % (1.5-5.0); Creatine Kinase MB 2.48 ng/mL (<2.37)
--- NOTE | 2020-09-24 14:12 | ED.CHESTPAIN ---
HPI - Chest Pain <Erma King PA-C - Last Filed: 09/24/20 19:59> General Chief Complaint: Chest Pain Stated Complaint: rapid pounding heart rate Time Seen by Provider: 09/24/20 12:42 Source: patient Mode of arrival: Ambulatory Limitations: no limitations History of Present Illness HPI narrative: 65-year-old woman with a history of PTSD, thoracic back surgery with rachael placement, presents with concern for feeling like her heart is going fast and beating hard. Patient states that for the last couple of days she has been feeling like her heart is going fast and it beating hard. She says that she had a PTSD trigger a couple of days ago before this started? whenever this happens it always takes a little while to resolve usually a few days?. She said that she did not sleep well last night and she called her psychiatrist office to tell them she wanted to reschedule her appointment that was supposed to happen today. When she told them about her symptoms they advised her strongly to come to the emergency department for evaluation. She says she feels fine at this point does not feel like her heart is going fast or beating hard she says she has not had any chest pain or shortness of breath with this and this feels very much like her previous episodes of PTSD? it will just take some time to resolve?. She endorses chronic thoracic back pain which is unchanged. Denies fevers, chills, chest pain, new back pain, shortness of breath or any other symptoms. Related Data Home Medications Medication Instructions Recorded Confirmed Metformin Hydrochloride 500 mg PO Q DAY #0 08/12/09 (Glucophage) omeprazole 40 mg capsule,delayed 40 mg PO Q DAY #0 08/22/11 release losartan 100 mg tablet (Cozaar) 100 mg PO QDAY #0 06/12/12 Previous Rx's Medication Instructions Recorded hydroxyzine HCl 25 mg tablet 25 mg PO QID PRN #20 tab 08/13/19 cyclobenzaprine 10 mg tablet 10 mg PO TID PRN #15 tab 09/24/19 dicyclomine 20 mg tablet 20 mg PO QID PRN #16 tab 09/24/19 oxycodone 5 mg tablet 5 mg PO Q6H PRN #12 tab 09/24/19 cyclobenzaprine 10 mg tablet 10 mg PO TID PRN #14 tab 09/29/19 tramadol 50 mg tablet (Ultram) 50 mg PO Q8H PRN #10 tab 09/29/19 Allergies Allergy/AdvReac Type Severity Reaction Status Date / Time hydromorphone Allergy Severe SEVERE Verified 09/24/19 08:50 HEADACHE morphine Allergy Mild ANXIETY Verified 09/24/19 08:50 Sulfa (Sulfonamide Allergy Unknown Verified 09/24/19 08:50 Antibiotics) Review of Systems <Erma King PA-C - Last Filed: 09/24/20 19:59> Review of Systems Narrative: Unremarkable except as noted in the HPI Patient History <Erma King PA-C - Last Filed: 09/24/20 19:59> Medical History (Updated 09/24/20 @ 15:03 by Erma King PA-C) Diabetes Social History Smoking Status: Former smoker Smoking Status: Former smoker alcohol intake frequency: 0-2 drinks per day Substance Use Type: does not use Exam <Erma King PA-C - Last Filed: 09/24/20 19:59> Narrative Exam Narrative: GENERAL: 65 year old patient appears stated age. Obese, Well-nourished, well-developed patient, in mild distress. HEAD: Atraumatic. Normocephalic. EYES: Pupils equal round and reactive. Extraocular motions intact. No scleral icterus. No injection or drainage. ENT: Nose without bleeding, purulent drainage. Throat without erythema, tonsillar hypertrophy or exudate. Airway patent. NECK: Trachea midline. Non tender CARDIOVASCULAR: Regular rate and rhythm without murmurs, gallops, or rubs. RESPIRATORY: Clear to auscultation. Breath sounds equal bilaterally. No wheezes, rales, or rhonchi. GASTROINTESTINAL: Abdomen soft, non-tender, protuberant, nondistended. EXTREMITIES: No edema or joint tenderness. BACK: Surgical scars entire thoracic bilaterally, mild tenderness, without deformity or crepitance. No flank tenderness. NEURO: AOx3. SKIN: No rash or erythema of visible areas Initial Vital Signs Initial Vital Signs: Vital Signs Temperature 98.0 F 09/24/20 11:40 Pulse Rate 77 09/24/20 11:40 Respiratory Rate 18 09/24/20 11:40 Blood Pressure 132/72 09/24/20 11:40 Pulse Oximetry 99 09/24/20 11:40 <DO Marilee Urena Last Filed: 09/25/20 07:35> Initial Vital Signs Initial Vital Signs: Vital Signs Temperature 98.0 F 09/24/20 11:40 Pulse Rate 77 09/24/20 11:40 Respiratory Rate 18 09/24/20 11:40 Blood Pressure 132/72 09/24/20 11:40 Pulse Oximetry 99 09/24/20 11:40 Course <JESSICA Arshad Last Filed: 09/24/20 19:59> Course Course Narrative: CK is slightly elevated however index is unremarkable 1402 Orders Ordered: ED Orders 09/24/20 11:40 XR chest 1V Stat EKG-12 Lead Stat 09/24/20 12:27 Complete Blood Count AUTO DIFF Stat Comprehensive Metabolic Panel Stat Lipase Stat Troponin & CK Cardiac Panel Stat Vital Signs Vital signs: Vital Signs - 8 hr 09/24/20 14:18 09/24/20 14:20 09/24/20 14:30 Pulse Rate 72 78 Respiratory Rate 19 20 Blood Pressure 175/92 H 165/84 H Pulse Oximetry 99 100 <Estevan Escoto DO - Last Filed: 09/25/20 07:35> Orders Ordered: ED Orders 09/24/20 11:40 XR chest 1V Stat EKG-12 Lead Stat 09/24/20 12:27 Complete Blood Count AUTO DIFF Stat Comprehensive Metabolic Panel Stat Lipase Stat Troponin & CK Cardiac Panel Stat Vital Signs Vital signs: Vital Signs - 8 hr 09/24/20 14:18 09/24/20 14:20 09/24/20 14:30 Pulse Rate 72 78 Respiratory Rate 19 20 Blood Pressure 175/92 H 165/84 H Pulse Oximetry 99 100 MDM - Chest Pain <JESSICA Arshad Last Filed: 09/24/20 19:59> Differential Diagnosis Differential diagnosis: Likely other (PTSD, anxiety, chronic pain, arrhythmia) Lab Data Result diagrams: 09/24/20 12:27 09/24/20 12:27 Labs: Lab Results 09/24/20 09/24/20 Range/Units 12:27 12:27 WBC 7.2 (4.5-11.0) X10^3/uL RBC 5.02 (4.0-5.2) X10^6/uL Hgb 13.9 (12.0-16.0) g/dL Hct 41.2 (36-46) % MCV 82.1 (80-100) fL MCH 27.6 (26-34) PG MCHC 33.7 (30-36) % RDW 13.8 (11.6-14.8) % Plt Count 276 (150-400) X10^3/uL Neut % (Auto) 55.1 (50-75) % Lymph % (Auto) 33.2 (25-40) % [place] % (Auto) 6.7 (3-14) % Eos % (Auto) 4.4 H (2-4) % Baso % (Auto) 0.6 (0-2) % Neut # (Auto) 4000 (1506-2598) /uL Lymph # (Auto) 2400 (4960-6893) /uL [place] # (Auto) 500 (0-900) /uL Eos # (Auto) 300 (0-450) /uL Baso # (Auto) 0 (0-100) /uL Sodium 139 (137-145) mmol/L Potassium 3.9 (3.4-5.1) mmol/L Chloride 105 (98-107) mmol/L Carbon Dioxide 26 (22-32) mmol/L BUN 11 (7-17) mg/dL Creatinine 0.51 L (0.52-1.04) mg/dL Estimated GFR > 60.0 (>60) mL/min BUN/Creatinine Ratio 21.6 (6-22) Glucose 160 H (80-110) mg/dL Calcium 9.7 (8.4-10.2) mg/dL Total Bilirubin 0.4 (0.2-1.3) mg/dL AST 38 H (14-36) IU/L ALT 57 H (<35) IU/L Alkaline Phosphatase 91 (38-126) U/L Total Creatine Kinase 119 (30-135) U/L CK-MB (CK-2) 2.48 H (<2.37) ng/mL CK-MB (CK-2) Rel Index 2.1 (1.5-5.0) % Troponin I < 0.012 (0.01-0.034) ng/mL Total Protein 7.1 (6.3-8.2) g/dL Albumin 4.3 (3.5-5.0) g/dL Globulin 2.8 (1.7-4.1) g/dL Albumin/Globulin Ratio 1.5 (1.0-2.8) Lipase 100 (23-300) U/L ECG Data Interpretation: Normal sinus rhythm, normal EKG rate 74 WV interval 166 QRS 76 QT 400 P axis -12? R axis 0? T axis 43 MDM Narrative Medical decision making narrative: Well-appearing 65-year-old presents with concern for palpitations that were going on for the last few days she says they are not happening now. Did check cardiac labs as a precaution given that she has some back pain that is thoracic and chronic in the setting of stated palpitations. These were unremarkable. Patient endorses that she really only came here because her psychiatrist advised her to after talking to them about her symptoms she actually feels fine and would like to go home after her evaluation. She feels her symptoms are related to her PTSD which has been acting up recently as she was triggered few days ago. She feels that they are resolving and will improve on their own does not ask for any help with any medications to assist with this and is planning on rescheduling her psychiatry appointment. Exam and vitals are unremarkable, she has no tachycardia or arrhythmia while on the monitor in the ED and she has an unremarkable EKG. Return precautions provided, follow-up plan discussed, all questions answered. <Estevan Escoto, - Last Filed: 09/25/20 07:35> Lab Data Labs: Lab Results 09/24/20 09/24/20 Range/Units 12:27 12:27 WBC 7.2 (4.5-11.0) X10^3/uL RBC 5.02 (4.0-5.2) X10^6/uL Hgb 13.9 (12.0-16.0) g/dL Hct 41.2 (36-46) % MCV 82.1 (80-100) fL MCH 27.6 (26-34) PG MCHC 33.7 (30-36) % RDW 13.8 (11.6-14.8) % Plt Count 276 (150-400) X10^3/uL Neut % (Auto) 55.1 (50-75) % Lymph % (Auto) 33.2 (25-40) % [place] % (Auto) 6.7 (3-14) % Eos % (Auto) 4.4 H (2-4) % Baso % (Auto) 0.6 (0-2) % Neut # (Auto) 4000 (9803-5244) /uL Lymph # (Auto) 2400 (5922-8229) /uL [place] # (Auto) 500 (0-900) /uL Eos # (Auto) 300 (0-450) /uL Baso # (Auto) 0 (0-100) /uL Sodium 139 (137-145) mmol/L Potassium 3.9 (3.4-5.1) mmol/L Chloride 105 (98-107) mmol/L Carbon Dioxide 26 (22-32) mmol/L BUN 11 (7-17) mg/dL Creatinine 0.51 L (0.52-1.04) mg/dL Estimated GFR > 60.0 (>60) mL/min BUN/Creatinine Ratio 21.6 (6-22) Glucose 160 H (80-110) mg/dL Calcium 9.7 (8.4-10.2) mg/dL Total Bilirubin 0.4 (0.2-1.3) mg/dL AST 38 H (14-36) IU/L ALT 57 H (<35) IU/L Alkaline Phosphatase 91 (38-126) U/L Total Creatine Kinase 119 (30-135) U/L CK-MB (CK-2) 2.48 H (<2.37) ng/mL CK-MB (CK-2) Rel Index 2.1 (1.5-5.0) % Troponin I < 0.012 (0.01-0.034) ng/mL Total Protein 7.1 (6.3-8.2) g/dL Albumin 4.3 (3.5-5.0) g/dL Globulin 2.8 (1.7-4.1) g/dL Albumin/Globulin Ratio 1.5 (1.0-2.8) Lipase 100 (23-300) U/L Discharge Plan Departure Patient Disposition: Home Clinical Impression: Chronic post-traumatic stress disorder (PTSD), Palpitations Activity Restrictions/Additional Instructions: There is no evidence of an emergent or life threatening illness at this time, but follow up with your doctor in 1-2 days is recommended nonetheless to continue to rule out serious underlying causes of your symptoms. Please reschedule your psychiatry appointment that you to the counseling today, take your regular medications as prescribed. We discussed things today and you did not feel that you need any help with your current PTSD symptoms, I am glad that your cardiac labs, EKG, and evaluation today were looking fine. I hope that you feel better soon. Please call the office for an appointment. Please return to the Emergency Department for any worsening or persistent symptoms. Please take medications as directed. Prescriptions: No Action Metformin Hydrochloride (Glucophage) 500 mg PO Q DAY Qty: 0 RF: 0 omeprazole 40 MG capsule,delayed release(DR/EC) 40 mg PO Q DAY Qty: 0 RF: 0 losartan [Cozaar] 100 MG tablet 100 mg PO QDAY Qty: 0 RF: 0 hydroxyzine HCl 25 mg tablet 25 mg PO QID PRN (Reason: itching) Qty: 20 RF: 0 cyclobenzaprine 10 mg tablet 10 mg PO TID PRN (Reason: muscle spasm) Qty: 14 RF: 0 tramadol [Ultram] 50 mg tablet 50 mg PO Q8H PRN (Reason: pain) Qty: 10 RF: 0 oxycodone 5 mg tablet 5 mg PO Q6H PRN (Reason: pain) Qty: 12 RF: 0 dicyclomine 20 mg tablet 20 mg PO QID PRN (Reason: abdominal pain and cramps) Qty: 16 RF: 0 cyclobenzaprine 10 mg tablet 10 mg PO TID PRN (Reason: muscle spasm) Qty: 15 RF: 0 Referrals: Padma Whittington DO [Primary Care Provider] - <Estevan Escoto DO - Last Filed: 09/25/20 07:35> [facility] ED Attending Dongature Attestation: I was immediately available in the department for consultation. This documentation has been reviewed and I agree with assessment and plan. Supervised by Estevan Escoto DO
[2020-09-24 14:18] VITALS: BP 175/92
[2020-09-24 14:20] VITALS: PULSE 72; RESP 19; O2SAT 99
[2020-09-24 14:30] VITALS: BP 165/84; PULSE 78; RESP 20; O2SAT 100
== END 2020-09-24 15:16 | disposition home or self-care (01) ==
PROVIDERS: Emergency Medicine; Emergency Provider Student in an Organized Health Care Education/Training Program; PCP Family Medicine
DX: F43.12 Post-traumatic stress disorder, chronic (principal); R00.2 Palpitations
CPT/HCPCS: 36415; 71045; 80053; 82550; 82553; 83690; 84484; 85025; 93005; 99283; 99284

== ENCOUNTER 2020-10-18 18:09 | Emergency (ER) | payer BC, SELFPAY ==
[2020-10-18 18:52] VITALS: BP 183/94; PULSE 76; RESP 18; TEMP 37.1; O2SAT 99; BMI 36.6
--- NOTE | 2020-10-18 19:36 | ED.HA ---
HPI - Headache General Chief Complaint: Headache Stated Complaint: NAUSEA HEADACHE Time Seen by Provider: 10/18/20 18:16 Mode of arrival: Ambulatory Limitations: no limitations History of Present Illness HPI Narrative: 65-year-old female nonsmoker with history of depression presents with a chief complaint of headache over the course of the day. She states she woke up feeling fine and has had a headache which evolved from the left side of her head and is now the majority of her head. She denies any dizziness or lightheadedness. She denies any photophobia or sensitivity to sound. She has no involvement of her neck nor numbness, tingling or weakness of her extremities. Denies any recent trauma. She states that she accidentally ran out of her duloxetine 2 days ago and therefore has not taken it. She denies other symptoms such as runny nose, sore throat or cough. She has become increasingly nauseated and has vomited once Related Data Home Medications Medication Instructions Recorded Confirmed Metformin Hydrochloride 500 mg PO Q DAY #0 08/12/09 (Glucophage) omeprazole 40 mg capsule,delayed 40 mg PO Q DAY #0 08/22/11 release losartan 100 mg tablet (Cozaar) 100 mg PO QDAY #0 06/12/12 Previous Rx's Medication Instructions Recorded hydroxyzine HCl 25 mg tablet 25 mg PO QID PRN #20 tab 08/13/19 cyclobenzaprine 10 mg tablet 10 mg PO TID PRN #15 tab 09/24/19 dicyclomine 20 mg tablet 20 mg PO QID PRN #16 tab 09/24/19 oxycodone 5 mg tablet 5 mg PO Q6H PRN #12 tab 09/24/19 cyclobenzaprine 10 mg tablet 10 mg PO TID PRN #14 tab 09/29/19 tramadol 50 mg tablet (Ultram) 50 mg PO Q8H PRN #10 tab 09/29/19 duloxetine 60 mg capsule,delayed 60 mg PO DAILY #14 cap 10/18/20 release Allergies Allergy/AdvReac Type Severity Reaction Status Date / Time hydromorphone Allergy Severe SEVERE Verified 09/24/19 08:50 HEADACHE morphine Allergy Mild ANXIETY Verified 09/24/19 08:50 Sulfa (Sulfonamide Allergy Unknown Verified 09/24/19 08:50 Antibiotics) Review of Systems Review of Systems Narrative: GENERAL: Denies chills, fatigue, malaise, fever, sweats. HEENT: Denies sinus pain, ear pain, sore throat, difficulty swallowing, dizziness. RESPIRATORY: Denies dyspnea, cough, wheezing, hemoptysis, sputum. CARDIOVASCULAR: Denies chest pain, palpitations, orthopnea, edema, GASTROINTESTINAL: See HPI : Denies dysuria, frequency, incontinence, hematuria, urinary retention. MUSCULOSKELETAL: denies weakness, joint pain, or bony pain SKIN: Denies rash, skin lesions, or other NEUROLOGIC: See HPI PSYCHIATRIC: No concerning psychosocial issues. 12 point review of systems is negative except for those stated above Patient History Medical History (Updated 10/18/20 @ 21:20 by Estevan Escoto DO) Diabetes Social History Smoking Status: Former smoker Smoking Status: Former smoker alcohol intake frequency: 0-2 drinks per day Substance Use Type: does not use Exam Narrative Exam Narrative: GENERAL: [65] year old patient appears stated age. Well-developed patient, in mild distress. HEAD: Atraumatic. Normocephalic. EYES: Pupils equal round and reactive. Extraocular motions intact. No scleral icterus. No injection or drainage. ENT: Nose without bleeding, purulent drainage. Throat without erythema, tonsillar hypertrophy or exudate. Airway patent. NECK: Trachea midline. Non tender, no meningeal signs CARDIOVASCULAR: Regular rate and rhythm without murmurs, gallops, or rubs. RESPIRATORY: Clear to auscultation. Breath sounds equal bilaterally. No wheezes, rales, or rhonchi. GASTROINTESTINAL: Abdomen soft, non-tender, nondistended. EXTREMITIES: No edema or joint tenderness. BACK: Nontender without deformity or crepitance. No flank tenderness. NEURO: AOx3. SKIN: No rash or erythema of visible areas NIH Stroke Scale 1a. LOC: Patient is alert and keenly responsive (0) 1b. LOC Questions: Patient answers both LOC questions accurately (0) 1c. LOC Commands: Patient performs both tasks correctly (0) 2. Best Gaze: Normal (0) 3. Visual: No visual loss (0) 4. Facial palsy: Normal symmetrical movements (0) 5. Motor arm: No drift (0) 6. Motor leg: No drift (0) 7. Limb ataxia: Absent (0) 8. Sensory: Normal (0) 9. Best language: No aphasia; normal (0) 10. Dysarthria: Normal (0) 11. Extinction and inattention: No abnormality (0) NIHSS: 0 Initial Vital Signs Initial Vital Signs: Vital Signs Temperature 98.7 F 10/18/20 18:52 Pulse Rate 76 10/18/20 18:52 Respiratory Rate 18 10/18/20 18:52 Blood Pressure 183/94 H 10/18/20 18:52 Pulse Oximetry 99 10/18/20 18:52 Course Orders Ordered: ED Orders 10/18/20 19:45 Basic Metabolic Panel Stat Complete Blood Count AUTO DIFF Stat Discontinued Medications Duloxetine HCl (Duloxetine 30 Mg Capsule) 60 mg PO NOW ONE Stop: 10/18/20 19:44 Last Admin: 10/18/20 20:06 Dose: 30 mg Documented by: LIZABETH Sodium Chloride (Normal Saline 0.9%) 1,000 mls @ 1,000 mls/hr IV BOLUS ONE Stop: 10/18/20 20:42 Last Infusion: 10/18/20 21:16 Dose: 0 mls/hr Documented by: Admin: 10/18/20 19:53 Dose: 1,000 mls/hr Documented by: LIZABETH Ketorolac Tromethamine (Ketorolac 30 Mg/Ml Vial) 15 mg IV NOW ONE Stop: 10/18/20 19:44 Last Admin: 10/18/20 19:52 Dose: 15 mg Documented by: LIZABETH Metoclopramide HCl (Metoclopramide 10 Mg/2 Ml Inj) 10 mg IV NOW ONE Stop: 10/18/20 19:44 Last Admin: 10/18/20 19:52 Dose: 10 mg Documented by: LIZABETH Reevaluation(s) Reevaluation #1: Patient reports a significant improvement in symptoms after the above-stated therapies. Her is at the bedside and they both suggest she is nearly at her baseline, feeling much better Vital Signs Vital signs: Vital Signs - 8 hr 10/18/20 18:52 Temperature 98.7 F Pulse Rate 76 Respiratory Rate 18 Blood Pressure 183/94 H Pulse Oximetry 99 MDM - Headache Lab Data Result diagrams: 10/18/20 19:45 10/18/20 19:45 Labs: Lab Results 10/18/20 10/18/20 Range/Units 19:45 19:45 WBC 10.5 (4.5-11.0) X10^3/uL RBC 5.32 H (4.0-5.2) X10^6/uL Hgb 14.7 (12.0-16.0) g/dL Hct 44.2 (36-46) % MCV 83.1 (80-100) fL MCH 27.6 (26-34) PG MCHC 33.2 (30-36) % RDW 14.2 (11.6-14.8) % Plt Count 303 (150-400) X10^3/uL Neut % (Auto) 74.8 (50-75) % Lymph % (Auto) 18.5 L (25-40) % [place] % (Auto) 5.2 (3-14) % Eos % (Auto) 0.7 L (2-4) % Baso % (Auto) 0.8 (0-2) % Neut # (Auto) 7900 H (2199-4308) /uL Lymph # (Auto) 2000 (2814-5240) /uL [place] # (Auto) 500 (0-900) /uL Eos # (Auto) 100 (0-450) /uL Baso # (Auto) 100 (0-100) /uL Sodium 139 (137-145) mmol/L Potassium 4.3 (3.4-5.1) mmol/L Chloride 103 (98-107) mmol/L Carbon Dioxide 26 (22-32) mmol/L BUN 13 (7-17) mg/dL Creatinine 0.51 L (0.52-1.04) mg/dL Estimated GFR > 60.0 (>60) mL/min BUN/Creatinine Ratio 25.5 H (6-22) Glucose 130 H (80-110) mg/dL Calcium 10.5 H (8.4-10.2) mg/dL Point of Care Testing Glucose POC 120 MDM Narrative Medical decision making narrative: Headache considerations include, but not limited to: Subarachnoid hemorrhage, but unlikely as patient denies sudden onset of pain, not worst of life, or neck pain Meningitis considered, but thought unlikely given lack of Brudzinski's, Kernig's sign, altered mental status or fever Giant cell arteritis considered, but thought unlikely given lack of unilateral findings, pain in quaker, vision change HTN Emergency considered, but thought unlikely given normal vitals Other serious diagnoses considered unlikely given lack of red flag findings such as sudden onset, increasing frequency, immunocompromise, systemic signs (fever, chills, stiff neck, or rash), focal neurologic findings, trauma, blood thinners, etc. Patient's history and physical exam certainly raise the suspicion of the role her missed medications may be playing. Return precautions given and questions answered to her apparent satisfaction Discharge Plan Departure Patient Disposition: Home Clinical Impression: Headache Qualifiers: Headache type: unspecified Headache chronicity pattern: acute headache Intractability: not intractable Qualified Code(s): R51.9 - Headache, unspecified Instructions: DI for Headache Activity Restrictions/Additional Instructions: *You have been diagnosed with [headache, most likely a consequence of missed medication] *What to do: *Please continue to take your regular medications as directed. [ ] New medication prescriptions sent to your pharmacy: [ ] [ ] New medication written as a paper prescription [ x] No new medications given *Please follow up with your primary care provider in 2-3 days, call for an appointment. Let them know you were seen in the Emergency Department and that we ask that you be seen in follow up. We will electronically transmit a record of today's note if your PCP is in our system *If you do not have a primary care provider please contact the [facility] Resource line at [phone]. They will ask some questions about your medical history and help get you set up with a doctor in the community. *Return to Emergency Department if you should have any new, worsening or concerning symptoms, such as [fever greater than 101 F, shaking chills, worsening pain, persistent vomiting or other bothersome symptoms] Prescriptions: New duloxetine 60 mg capsule,delayed release(DR/EC) 60 mg PO DAILY Qty: 14 RF: 0 No Action Metformin Hydrochloride (Glucophage) 500 mg PO Q DAY Qty: 0 RF: 0 omeprazole 40 MG capsule,delayed release(DR/EC) 40 mg PO Q DAY Qty: 0 RF: 0 losartan [Cozaar] 100 MG tablet 100 mg PO QDAY Qty: 0 RF: 0 hydroxyzine HCl 25 mg tablet 25 mg PO QID PRN (Reason: itching) Qty: 20 RF: 0 cyclobenzaprine 10 mg tablet 10 mg PO TID PRN (Reason: muscle spasm) Qty: 14 RF: 0 tramadol [Ultram] 50 mg tablet 50 mg PO Q8H PRN (Reason: pain) Qty: 10 RF: 0 oxycodone 5 mg tablet 5 mg PO Q6H PRN (Reason: pain) Qty: 12 RF: 0 dicyclomine 20 mg tablet 20 mg PO QID PRN (Reason: abdominal pain and cramps) Qty: 16 RF: 0 cyclobenzaprine 10 mg tablet 10 mg PO TID PRN (Reason: muscle spasm) Qty: 15 RF: 0 Referrals: Padma Whittington DO [Primary Care Provider] -
[2020-10-18 19:51] LABS: Add Manual Diff / Slide Review NO; Basophils Absolute Auto 100 /uL (0-100); Basophils Percent Auto 0.8 % (0-2); Eosinophils Absolute Auto 100 /uL (0-450); Eosinophils Percent Auto 0.7 % (2-4); Hematocrit 44.2 % (36-46); Hemoglobin 14.7 g/dL (12.0-16.0); Lymphocytes Absolute Auto 2000 /uL (1100-4500); Lymphocytes Percent Auto 18.5 % (25-40); Mean Corpuscular HGB Conc 33.2 % (30-36); Mean Corpuscular Hemoglobin 27.6 PG (26-34); Mean Corpuscular Volume 83.1 fL (80-100); Monocytes Absolute Auto 500 /uL (0-900); Monocytes Percent Auto 5.2 % (3-14); Neutrophils Absolute Auto 7900 /uL (1500-7000); Neutrophils Percent Auto 74.8 % (50-75); Platelet Count 303 X10^3/uL (150-400); Red Blood Cell Count 5.32 X10^6/uL (4.0-5.2); Red Cell Distribution Width 14.2 % (11.6-14.8); White Blood Cell Count 10.5 X10^3/uL (4.5-11.0)
[2020-10-18] MEDS: METOCLOPRAMIDE 10 MG/2 ML INJ IV (19:52)
[2020-10-18] MEDS: KETOROLAC 30 MG/ML VIAL 15 MG IV (19:52)
[2020-10-18] MEDS: SODIUM CHLORIDE 0.9% 1,000 ML 1000 ML IV (19:53)
[2020-10-18] MEDS: DULOXETINE 30 MG CAPSULE 60 MG PO (20:06)
[2020-10-18 20:24] LABS: BUN Creatinine Ratio 25.5 (6-22); Blood Urea Nitrogen 13 mg/dL (7-17); Calcium 10.5 mg/dL (8.4-10.2); Carbon Dioxide 26 mmol/L (22-32); Chloride 103 mmol/L (98-107); Estimated Glomerular Filt Rate > 60.0 mL/min (>60); Glucose 130 mg/dL (80-110); HEMOLYSIS < 15 (0-50); Potassium 4.3 mmol/L (3.4-5.1); Sodium 139 mmol/L (137-145)
== END 2020-10-18 21:31 | disposition home or self-care (01) ==
PROVIDERS: Emergency Provider Emergency Medicine; PCP Family Medicine
DX: R51.9 Headache, unspecified (principal); R11.0 Nausea
CPT/HCPCS: 36415; 80048; 82962; 85025; 96361; 96374; 96375; 99284; J1885; J2765

== ENCOUNTER → 2020-11-04 15:07 | Outpatient (CLI) | payer BC, SELFPAY ==
--- NOTE | 2020-11-04 15:08 | DI.MRI.S_ITS ---
PROCEDURE: MR THORACIC SPINE WO CON INDICATIONS: Other specified postprocedural states TECHNIQUE: Noncontrast sagittal T1 spine echo and T2 fast spin echo, sagittal STIR, axial T1 and T2 fast spin echo through the thoracic spine. COMPARISON: [facility], MR, MR THORACIC SPINE WO CON, 05/15/2015, 15:57. FINDINGS: Image quality: Excellent. Alignment and Curvature: There is normal bony alignment. Interval posterior lateral rachael and pedicle screw fixation at T9-T10. Bone Marrow: Marrow is of normal overall signal. No acute vertebral body compression fractures. Spinal Cord: Visualized spinal cord is normal in size and signal. Paraspinous Soft Tissues: No paravertebral masses. Miscellaneous: T1-T2: No canal stenosis or foraminal stenosis. T2-T3: Minimal disc bulge. No central canal stenosis. Mild bilateral foraminal stenosis. T3-T4: Mild disc bulge. No canal stenosis or foraminal stenosis. T4-T5: No canal stenosis or foraminal stenosis. T5-T6: Worsening of severe chronic disc height loss. Minimal disc bulge. No canal stenosis or foraminal stenosis. T6-T7: Mild left paracentral disc protrusion, as before, abutting the cord, without significant canal stenosis. No significant foraminal stenosis. T7-T8: No significant change in focal left paracentral disc protrusion which indents on the ventral cord, mildly narrowing the left side of the spinal canal. No foraminal stenosis. T8-T9: Metallic artifact. No canal stenosis or foraminal stenosis. T9-T10: Interval posterior lateral rachael and pedicle screw fixation and apparent discectomy with resolution of canal stenosis. No obvious foraminal stenosis. T11-T12: No significant canal stenosis. Mild right and moderate left foraminal stenosis, as before. T12-L1: Chronic left paracentral disc osteophyte complex, abutting the conus, unchanged, with unchanged degree of canal stenosis. Unchanged bilateral foraminal stenosis, left greater than right. IMPRESSION: 1. Interval discectomy and fusion at T9-T10 with no evidence of residual or recurrent disc protrusion and no residual canal stenosis. 2. Findings at other levels are stable. Dictated by: Foster Leyva M.D. on 11/05/2020 at 9:48 Approved by: Foster Leyva M.D. on 11/05/2020 at 10:05
--- NOTE | 2020-11-04 15:08 | DI.MRI.S_ITS ---
PROCEDURE: MR LUMBAR SPINE WO CON INDICATIONS: Other specified postprocedural states TECHNIQUE: Noncontrast sagittal T1 spin echo and T2 fast echo, sagittal STIR, axial T1 and T2 fast spin echo through the lumbar spine. In cases with scoliosis, additional coronal T2 fast spin echo may be performed. COMPARISON: CT, CT LUMBAR SPINE WO/W CON, 07/26/2017, 11:37. CT, CT LUMBAR SPINE WO CON, 06/27/2018, 11:34. [facility], MR, L-SPINE WITHOUT CONTRAST, 02/06/2009, 16:56. FINDINGS: Image quality: Portions of the spine are suboptimally evaluated secondary to susceptibility artifact from spinal fusion. Alignment and Curvature: Extensive postsurgical changes are present with posterior fusion from L2 through S1. Multilevel intervertebral spacers are noted at L2-3, L3-4, L4-5 and L5-S1. There is grade 1 retrolisthesis of L3 on L4, L5 on S1 and grade 1 anterolisthesis of L4 on L5 measuring 3 mm, 3 mm and 3 mm respectively. This appears stable. Bone Marrow: Marrow is of normal overall signal. No acute vertebral body compression fractures. Spinal Cord: Conus medullaris terminates at the L1 level. Visualized cord demonstrates normal signal and size. Paraspinous Soft Tissues: No paravertebral masses. T2 hyperintensities are present within the kidneys most suggestive of cysts. Fluid collection is noted the posterior paraspinous region from L3-4 through L5-S1, measuring approximately 3.4 x 4.5 by 6.3 cm. This appears relatively unchanged compared to prior exam in suggestive of postoperative seroma. T12-L1: Mild disc bulge with daea-yt-ifrasgwo canal narrowing. Severe left foraminal narrowing. Overall appearance is stable. L1-L2: Mild disc bulge with mild spinal stenosis. There is moderate right and moderate to severe left foraminal narrowing with facet hypertrophy. Questionable minimal interval progression noted on the left. L2-L3: Postsurgical changes are present. No spinal stenosis. Foramina are obscured secondary to artifact. There is felt to be likely moderate to severe right eisu-jj-nkominvo left foraminal narrowing, grossly stable compared to prior exam but poorly visualized. L3-L4: Postsurgical changes are present. No spinal stenosis. Foramina are obscured secondary to artifact. There is moderate to severe right and moderate left foraminal narrowing with facet hypertrophy. Appearance is grossly stable. L4-L5: Postsurgical changes are present. There is no spinal stenosis. Foramina are obscured secondary to artifact. Moderate to severe right and moderate left foraminal narrowing, overall stable. L5-S1: Postsurgical changes are present without spinal stenosis. Foramina are obscured secondary to motion. There is an appearance of moderate to severe left and moderate right foraminal narrowing, questionably minimally progressive on the left, although poorly visualized. IMPRESSION: 1. Extensive degenerative and postsurgical change. 2. Areas of postsurgical change are somewhat suboptimally evaluated secondary to obscuration from susceptibility artifact. 3. Ygsl-tw-nsqqscgg spinal stenosis at T12-L1 and L1-L2 secondary to disc bulge. 4. Multilevel foraminal narrowing most severe at L2-3, L3-4, L4-5 and L5-S1 secondary to facet arthropathy. Dictated by: Denise Castillo M.D. on 11/04/2020 at 21:19 Approved by: Denise Castillo M.D. on 11/04/2020 at 21:38
--- NOTE | 2020-11-04 15:08 | DI.MRI.S_ITS ---
PROCEDURE: MR CERVICAL SPINE WO CON INDICATIONS: Other specified postprocedural states TECHNIQUE: Noncontrast sagittal T1 spin echo and T2 fast spin echo, sagittal STIR, foraminal oblique sagittal T2 fast spin echo, and axial gradient echo or T2 fast spin echo through the cervical spine. COMPARISON: [facility], CT, C-SPINE W/O CONTRAST, 11/28/2012, 14:24. [facility], MR, MR CERVICAL SPINE W&WO CON, 05/15/2015, 15:57. FINDINGS: Image quality: Excellent. Alignment and Curvature: Anterior fusion is present at C4 through C7. There is overall mild straightening of cervical curvature relatively unchanged. Bone Marrow: Marrow demonstrates normal overall signal. Spinal Cord: Visualized spinal cord has normal size and signal. No cerebellar tonsillar herniation. Paraspinous Soft Tissues: No paravertebral masses. Prevertebral soft tissues are normal in thickness. C2-C3: Mild disc bulge without spinal stenosis. There is qthw-ii-obasbspd bilateral foraminal narrowing slightly more prominent on the left, with uncovertebral hypertrophy. Appearance is relatively stable compared to prior exam. C3-C4: Mild disc bulge without spinal stenosis. Severe left and mild right foraminal narrowing with uncovertebral hypertrophy. Appearance is overall stable. C4-C5: Postsurgical changes are present at this level. There is mild spinal stenosis without foraminal narrowing. Minimal to mild left and mild right foraminal narrowing are present with uncovertebral hypertrophy, unchanged. C5-C6: Postsurgical changes are present. Mild disc bulges present without spinal stenosis. There is mild indentation of the anterior cord without change. Severe right and moderate to severe left foraminal narrowing with uncovertebral hypertrophy, appearing slightly progressive on the left. C6-C7: Postsurgical changes are present. Mild disc bulge with asymmetric protrusion in the right posterior paracentral location with mild compromise of the right lateral recess. Moderate left and moderate to severe overall right foraminal narrowing, slightly progressive on the left is noted. Osteophyte protruding into the right foramina causes significant severe proximal foraminal narrowing. C7-T1: Postsurgical changes are present. No spinal stenosis or foraminal narrowing. IMPRESSION: 1. Multilevel degenerative changes with areas of interval progression as above. 2. Stable appearance of multilevel postsurgical change. 3. Mild spinal stenosis most notable at C4-5 secondary to disc bulge. 4. Multilevel severe foraminal narrowing most notable at C3-4, C5-6 secondary to uncovertebral arthropathy. Dictated by: Denise Castillo M.D. on 11/04/2020 at 21:12 Approved by: Denise Castillo M.D. on 11/04/2020 at 21:19
== END ==
PROVIDERS: PCP Family Medicine; Referring Provider Nurse Practitioner; Visit Provider Nurse Practitioner
DX: M51.24 Other intervertebral disc displacement, thoracic region (principal); Z98.890 Other specified postprocedural states; Z98.1 Arthrodesis status; M48.05 Spinal stenosis, thoracolumbar region; M48.061 Spinal stenosis, lumbar region without neurogenic claudication; M51.26 Other intervertebral disc displacement, lumbar region; M47.816 Spondylosis without myelopathy or radiculopathy, lumbar region; M48.02 Spinal stenosis, cervical region; M50.221 Other cervical disc displacement at C4-C5 level; M47.812 Spondylosis without myelopathy or radiculopathy, cervical region
CPT/HCPCS: 72141; 72146; 72148

== ENCOUNTER → 2020-11-16 12:37 | Outpatient (CLI) | payer BC, SELFPAY ==
--- NOTE | 2020-11-16 | DI.RAD.S_ITS ---
PROCEDURE: XR CERVICAL SPINE 4V OR 5V INDICATIONS: Arthrodesis status TECHNIQUE: 5 views of the cervical spine were acquired. COMPARISON: [facility], MR, MR CERVICAL SPINE WO CON, 11/04/2020, 15:14. [facility], MR, MR THORACIC SPINE WO CON, 11/04/2020, 15:14. FINDINGS: Bones: ACDF at C4 through C7 with anterior plate and screw fixation and interbody fusion material. No fractures or dislocations to the T1 level. No suspicious bony lesions. There is decreased range of motion between flexion and extension, with preserved normal bony alignment. Soft tissues: Prevertebral soft tissues are normal in thickness. IMPRESSION: Intact cervical hardware with no evidence of hardware failure or loosening. No abnormal motion on flexion and extension. Dictated by: Foster Leyva M.D. on 11/16/2020 at 15:42 Approved by: Foster Leyva M.D. on 11/16/2020 at 15:56
== END ==
PROVIDERS: PCP Family Medicine; Referring Provider Nurse Practitioner; Visit Provider Nurse Practitioner
DX: Z98.1 Arthrodesis status (principal)
CPT/HCPCS: 72050

== ENCOUNTER → 2020-12-04 10:47 | Outpatient (CLI) | payer OTHER, SELFPAY ==
[2020-12-04 13:18] LABS: COVID19 -Nasal RAPID Negative (Negative)
== END ==
PROVIDERS: PCP Family Medicine; Referring Provider Nurse Practitioner; Visit Provider Nurse Practitioner
DX: Z20.822 Contact with and (suspected) exposure to COVID-19 (principal)
CPT/HCPCS: 87635

== ENCOUNTER 2020-12-07 06:28 | Observation (INO) | payer OTHER, SELFPAY ==
[2020-11-30 12:31] VITALS: BMI 38.2
[2020-12-07] VITALS (19 sets, daily range): BP systolic 115–160; BP diastolic 66–81; PULSE 78–94; RESP 16–24; TEMP 36.4–37; O2SAT 91–100; BMI 38.2
--- NOTE | 2020-12-07 06:00 | DI.RAD.S_ITS ---
PROCEDURE: XR KNEE LT 1TO2V INDICATIONS: postop prosthesis placement TECHNIQUE: 3 views of the knee were acquired. COMPARISON: [facility], XR KNEE 4+ VIEWS LEFT, 12/03/2020, 15:29. FINDINGS: Bones: Postsurgical changes compatible with left knee arthroplasty. Orthopedic hardware is in expected positions. No lucencies at the bone-hardware interface. Soft tissues: No suspicious soft tissue calcifications. Soft tissue swelling noted. Air-fluid levels noted in the joint compatible 3 since surgery. IMPRESSION: Expected postsurgical change for left knee arthroplasty. Dictated by: Magui Painting MD, PhD on 12/07/2020 at 14:47 Approved by: Magui Painting MD, PhD on 12/07/2020 at 14:52
[2020-12-07] MEDS: ACETAMINOPHEN 325 MG TABLET 975 MG PO (06:47)
[2020-12-07] MEDS: MELOXICAM 7.5 MG TABLET 15 MG PO (06:47)
[2020-12-07] MEDS: LACTATED RINGERS 1,000 ML 42 ML IV (07:12)
--- NOTE | 2020-12-07 07:32 | PM.PREOP ---
Pre-operative Note COVID-19 COVID-19 status: Negative Result date/Date tested (Pos, Neg/Pending): 12/04/20 Interval Note History & Physical reviewed/Exam performed by Physician: Yes Changes to H&P: No
--- NOTE | 2020-12-07 07:33 | SUR.PREOP ---
Dr. Parr made aware of morphine reaction, stated it was ok to activate order for intra op morphine.
--- NOTE | 2020-12-07 07:34 | PM.OP.1 ---
Operative Date/Time/Diagnoses Date of procedure: 12/07/20 Time of procedure: 09:52 Pre-op diagnosis: Left knee osteoarthritis Post-op diagnosis: same Procedure & Clinicians Procedure: Left total knee replacement Same procedure as scheduled: Yes Indications: The patient has had progressively worsening left knee pain with radiographic changes consistent with arthritis. Non-operative management has failed and the patient has requested total knee replacement. The risks, benefits and alternatives to surgery were discussed with the patient prior to proceeding. Risks discussed included, but were not limited to, failure to relieve pain, stiffness, infection, nerve damage, deep venous thrombosis, pulmonary embolism, stroke, coma, heart attack, permanent paralysis and , as well as the potential need for eventual revision of the prosthetic. Surgeon: Holden Parr Percussion Instrument Tuner: Glo Otero Click Yes if Unassisted: No Anesthesia Type: General, Spinal and Local Operative Notes Findings: Severe tricompartmental osteoarthritis with complete eburnation of bone on the medial compartment but involvement of all 3 compartments. Closure Type: primary Specimen(s): none sent Prosthetic devices, grafts, tissues, transplants, or devices: Implants used in this procedure were manufactured by the [employer] and included the BCS II Journey total knee replacement with a size 5 left Oxinium femoral component, a size 3 left non porous tibial base plate, a 9 mm cross-linked polyethylene insert and a 32 mm oval Alcira II patellar component. Applied: implant(s) Estimated Blood Loss (mL): 50 Blood products transfused: none Tourniquet time (min): 52 Procedure in detail: The patient was seen in the pre-operative area, where the left knee was identified as the operative site and this was marked with my initials. The patient received pre-operative antibiotics, and was taken to the operating room and placed on the operative table in the supine position. After satisfactory anesthesia, a fabricator industrial furnace out was performed. The left leg was encircled with a tourniquet about the proximal thigh, and the leg was prepared from the toes to the tourniquet with ChloroPrep in the usual fashion and draped through sterile drapes. The leg was elevated and exsanguinated with Eschmark bandage and the tourniquet inflated to 250 mmHg pressure. The knee was approached through an approximately 18 cm incision centered over the patella and carried into the knee through a medial parapatellar arthrotomy. The anterior osteophytes and soft tissues were removed. The rotational landmarks of Raoul's line and the transepicondylar axis were marked on the femur with electrocautery, and intramedullary guide holes for the femur and tibia were created. The distal femoral cut was made in 6 degrees of valgus using the intramedullary guide at the primary cut setting. The proximal tibial cut was then made using the intramedullary guide, taking 9 mm of bone off the less involved side. The extension gap was checked and the rotation of the femoral component confirmed with the gap balancing blocks. The anterior, posterior and chamfer cuts were then made. The posterior osteophytes and soft tissues were then removed. The posterior capsule was injected with part of a mixture of 60 ml 0.25% Marcaine mixed with 20 ml Exparel and 4 mg of morphine for post-operative pain control. The remainder of this mixture was injected into the capsule and subcutaneous tissues during cement curing. The tibia was prepared with the rotation set by an extra medullary guide. Trial tibial and femoral components were then placed and the intercondylar notch cut through the femoral trial. Range of motion was 0-135 degrees, with good stability throughout the range. The patella was then cut to accommodate the patellar prosthetic. There was no need for a lateral release. The trials were then removed, and the femoral hole plugged with a bone plug. The bone was prepared with pulsatile lavage, and dried with a sponge. Cement was applied and the final prosthetics placed. Excess cement was removed during and after cement curing. After confirming there was no extruded cement posteriorly, the final tibial insert was placed. The knee was copiously irrigated and the tourniquet deflated. Hemostasis was obtained. The capsule was closed with interrupted # 2 polyester sutures. The subcutaneous layer was closed with 3-0 Vicryl, and the skin with a running 3-0 V-Lock suture and SteriStrips. An Aquacel Ag dressing was applied and the patient was taken to recovery having tolerated the procedure well. Complications: none Post-operative Condition: stable Disposition: PACU Plan for aftercare: The patient will be maintained on a standard total knee replacement protocol with weight bearing as tolerated. The patient will receive aspirin and sequential compression devices for DVT prophylaxis. The patient will be discharged home when safe for the home environment.
[2020-12-07] MEDS: CEFAZOLIN 1 GM VIAL 2 GM IV (08:07)
--- NOTE | 2020-12-07 08:15 | SUR.OPER ---
Supine on padded OR bed. Pillow under head, arms secured on padded armboards <90 degree abduction. Safety belt across torso. Non-operative leg secured with tape over blanket over lower leg. Operative leg secured in DeMayo positioner.
[2020-12-07] MEDS: BUPIVACAINE LIPOSOME 266 MG/20 ML VIAL INJ (08:23)
[2020-12-07] MEDS: MORPHINE 4 MG/ML INJ INJ (08:24)
[2020-12-07] MEDS: TRANEXAMIC ACID 1,000 MG VIAL 1000 MG INJ ×2 (08:24→09:13)
[2020-12-07] MEDS: BUPIVACAINE 0.25% (PF) VIAL 60 ML INJ (08:27)
[2020-12-07] MEDS: EPINEPHrine 1 MG/ML 0.3 MG INJ (08:28)
[2020-12-07] MEDS: ONDANSETRON 4 MG/2 ML INJ IV (11:13)
[2020-12-07] MEDS: hydrOXYzine pamoate 25 MG CAPSULE PO ×2 (11:15→16:52)
[2020-12-07] MEDS: HYDROMORPHONE 0.5 MG INJ 0.2 MG IV ×4 (11:18→22:07)
[2020-12-07] MEDS: INSULIN LISPRO 100 UNIT/ML 3ML VIAL SUBCUT (11:35)
[2020-12-07] MEDS: LACTATED RINGERS 1,000 ML 100 ML IV ×2 (11:37→20:30)
[2020-12-07] MEDS: OXYCODONE IR 10 MG TABLET PO ×2 (11:42→21:32)
[2020-12-07] MEDS: IBUPROFEN 400 MG TABLET PO ×3 (12:04→20:27)
[2020-12-07] MEDS: HYDROMORPHONE 2 MG TABLET PO ×4 (13:30→23:39)
[2020-12-07] MEDS: polyethylene glycoL 3350 17 GM POWD.PACK PO (13:34)
--- NOTE | 2020-12-07 14:18 | PT.IIE ---
Current Diagnoses Unilateral primary osteoarthritis, left knee (12/07/20) Surgery Performed Operation Date: 12/07/20 07:45 Actual Procedures p Total Knee Arthroplasty(Left) - Holden Parr MD Medical History (Last Updated 12/04/20 @ 09:23 by Elida Mcfarland RN) Anxiety Cervical dysplasia Depression Diabetes Difficult intravenous access GERD (gastroesophageal reflux disease) HLD (hyperlipidemia) HTN (hypertension) BECCA on CPAP Osteoarthritis Pancreatitis (04/06/14) PTSD (post-traumatic stress disorder) Sepsis (09/2014) Physical Therapy Inpatient Evaluation/Re-Eval M1 PT/OT-IP Prior Functional Status Start: 12/07/20 11:43 Freq: NEEDED Status: Active Protocol: Document 12/07/20 14:18 JG (Rec: 12/07/20 14:33 J [id number]) Medical Review Prior Functional Status Medical History Reviewed Yes Diet/Fluid Consistency Regular Communication Enriqueta was able to answer all questions accurately and articulately. Mobility and Gait Enriqueta reported that she has a FWW and SPC at home. She recently started used using them more regularly per OP PT recommendations. She reported that she had a pre-op PT visit which included stair mobility education and quad sets for therapeutic exercise. Activities of Daily Living and IADL's Enriqueta reported that she is able to complete ADLs indep including dressing, toileting, and showering, but has difficulty with reaching the ground and putting on shoes. She uses reachers daily, self- selects slip-on shoes, and limits gardening activities due to pain. Social History Household Members spouse Living Arrangements House Number of Floors (Floors) One Floor Number of Stairs To Enter/Railing? 12 steps to access front door, railing on both sides but difficult to grasp railing at same time. Slooping uphill on grass to access back door which doesn't have any steps. Home Environment High Toilet,Tub/Shower Home Equipment Front Wheel Walker,Straight Cane,Grab Bars In Shower Employment Status Unemployed Additional Social History Comment Caregiver: is taking 2 weeks off work to assist Enriqueta recover post-surgery. Enriqueta reports that he does not have mobility issues that imped him assisting her. Home: Enriqueta reports she picked up all rugs and tripping hazards. Has 3 cats. M2 PT-IP Current Condition Start: 12/07/20 11:43 Freq: NEEDED Status: Active Protocol: Document 12/07/20 14:18 JG (Rec: 12/07/20 14:55 J [id number]) Physical Therapy Current Condition Current Condition Evaluation Date 12/07/20 Treatment Diagnosis L TKA, limited L knee ROM, impaired mobility Onset Date 12/07/20 M3 PT-IP Subjective Start: 12/07/20 11:43 Freq: NEEDED Status: Active Protocol: Document 12/07/20 14:18 JG (Rec: 12/07/20 14:55 J [id number]) Subjective Physical Therapy Visit Type Type Initial Evaluation Visit Start Time 13:49 Visit Stop Time 14:18 Total Visit Minutes 29 Number of CELL BUILDER Visits 0 Physical Therapy Visit Comments Patient Comments Enriqueta reports that she has been wanting to use the bedside commode, but has felt unable to sit up or transfer due to L knee pain. Enriqueta reports that she is feeling anxious about accessing her home which has 12 steps to the front door and a slooping uphill to the back door. She reports her is taking 2 weeks off to help her during recovery. Patient Goals Ambulate around her home, garden, and community without pain at a faster pace compared to before surgery. Maintain and care for her large outdoor garden and indoor plants which includes shoveling, watering, squatting, and getting on hands and knees without pain or functional limitation. Therapy Pain Assessment Pain When Pain Assessed At Rest Pain Present Pain Present Pain Reported Location L knee Scale Used 5/10 at rest, 10/10 w/movement in bed, 7/10 during transfer Pain Behaviors Calling Out,Facial Grimacing, Wincing Pain Management Techniques Apply Cold,Timing of Activity with Medications M4 PT-IP Mobility and Gait Start: 12/07/20 11:43 Freq: NEEDED Status: Active Protocol: Document 12/07/20 14:18 JG (Rec: 12/07/20 14:55 J [id number]) PT-Bed Mobility Assessment Supine to Sit Supine to Sit Minimal Assistance Sit to Supine Sit to Supine Minimal Assistance Scooting Scooting to Edge of Bed Minimal Assistance Scooting Up and Down in Bed Minimal Assistance PT-Transfer Assessment Sit to and From Stand Sit to and from Stand Moderate Assistance,1 Person Assistance Equipment Transfer Assistive Device Bed Rail,Gait Belt,Front Wheeled Walker Orthotic/Prosthetic Devices or Brace: No Transfers Transfer Destination Bedside Commode Transfer Technique Stand Step Pivot Transfer Ability Level of Assist Moderate Assistance,1 Person Assistance Comments Mobility Comments Pt was lying supine w/2 ice packs on L knee, bilat SCD. Pt wincied while attempting small movements in bed. Pt asked about more pain medications. Pt felt nauseous and hot after transfering to bedside commode. Pt was able to transfer back to bed with mod assist. Cueing to bend R knee and utilize FWW was needed. Pt relied heavily on FWW to off-load weight through L knee. PT-Balance Assessment Sitting Balance and Reactions Static Sitting Balance Ability Fair Dynamic Sitting Balance Ability Fair Standing Balance and Reactions Static Standing Balance Ability Fair Dynamic Standing Balance Ability Fair Device Used FWW Comments Other Balance Tests/Deviations/Treatment Pt felt nauseous and hot while : in sitting likely due to having completed a transfer from the bed. Pt was able to maintain seated and standing balance with FWW and min assist. M5 PT-IP Objective Assessments Start: 12/07/20 11:43 Freq: NEEDED Status: Active Protocol: Document 12/07/20 14:18 AW (Rec: 12/07/20 15:17 AW [id number]) Orientation Orientation/Cognition Level of Alertness Alert Orientation Name,Day of Week,Place, Situation Language Function Ability No Deficits Noted Safety Awareness Understands Safety Issues Gross Range of Motion Lower Extremity ROM Assessment Left Impaired Strength Lower Extremity Strength Assessment Bilaterally Impaired Ankle 4/5 PF; 4-/5 DF Sensation Assessment Sensation Gross Sensation Right LE Impaired Light Touch Impaired Comments Sensation Comments Pt reports typical R foot numbness. Muscle Tone Muscle Tone WNL Yes M6 PT-IP Treatment Start: 12/07/20 11:43 Freq: NEEDED Status: Active Protocol: Document 12/07/20 14:18 AW (Rec: 12/07/20 15:17 AW [id number]) Physical Therapy Treatment Exercises Exercises Ankle Pumps Education Education Provided Weight Bearing Status,Post-Op Packet,Safety M7 PT-IP Assessment and Plan Start: 12/07/20 11:43 Freq: NEEDED Status: Active Protocol: Document 12/07/20 14:18 AW (Rec: 12/07/20 15:17 AW [id number]) PT Summary Assessment and Plan Potential Rehabilitation Potential Good Status of Condition at Evaluation Evolving Summary Impairments Pain,ROM,Strength,Balance, Sensation,Bed Mobility, Transfers,Gait,Activity Tolerance Assessment Summary Enriqueta is a 65 yo woman seen for PT evaluation following L TKA on POD0. She is modified indpendent at baseline with use of SPC or FWW. Pt is requiring min to mod assist with bed mobility and transfers using FWW at this assessment. She is primarily limited by left knee pain and anxiety. Pt is likely to progress during her hospital stay and PT anticipates she will be able to discharge home with spouse assist but stairs will be a barrier to safe home access. Goals Bed Mobility Goal Standby Assistance Transfer Goal Standby Assistance,Front Wheeled Walker Gait Goal Standby Assistance,Front Wheel Walker Gait Distance 150 Other Goals - up/down 12 steps with unilateral rail and SPC SBA Days to Meet Goals 5 Frequency of Treatment Frequency Of Treatment Twice a Day Treatment Plan Physical Therapy Treatment Plan Bed Mobility Training,Transfer Training,Gait Training, Therapeutic Exercise,Balance Retraining,Post Op Education, Discharge Planning,Hot or Cold Pack Other Recommendations and Next Treatment transfers and gait with FWW; Focus initiate ther ex; stairs when able Precautions Other Precautions falls Weight Bearing Status Weight Bearing Status Weight Bear as Tolerated Recommendations To Nursing Amount of Assist Needed 2 Person Assist Discharge Recommendations PT Discharge Recommendations Home with Assistance, Outpatient PT Equipment Needed for Home Before transfer bench Discharge Transportation Needs at Discharge Private Vehicle
[2020-12-07] MEDS: ACETAMINOPHEN 325 MG TABLET 650 MG PO ×2 (14:46→20:26)
[2020-12-07] MEDS: ONDANSETRON 4 MG ODT PO (14:46)
--- NOTE | 2020-12-07 15:07 | PC.NURSE ---
Pt arrived from PACU at 1036, lethargic but A&Ox3. Awakens within 30 mins c/o 9-10/10 pain in L knee, medicated with PRN pain medications in addition to zofran and vesteril to prevent side effects listed as allergies. Patient without n/v. Tolerating lunch well. Voiding in bed mckee. PT/OT at bedside evaluating patient. TIFFANIE wrap to L knee, c/d/i. no swelling. Continuous monitoring.
--- NOTE | 2020-12-07 19:19 | PC.NURSE ---
Addendum entered by Daisy Kelsey R.N. 12/07/20 21:47: Pt continues w/pain issues Med several times throughout evening w/minimal relief. IVF continue as per orders w/o incidence. Stable post op course. Call light w/in reach, bed alarm on for pt safety. Continue w/plan of care. Original Note: Pt alert/awake. Lungs clear, SpO2 96% RA. Uses cpap at intervals. IVF infusing as per orders. Shaji/aquacell dsg to left knee CDI. Med w/ po & IVP dilaudid for discomfort. Call light w/in reach, bed alarm on for pt safety. Stable post op course.
[2020-12-07] MEDS: GABAPENTIN 600 MG TABLET PO (20:26)
[2020-12-07] MEDS: DULOXETINE 30 MG CAPSULE 60 MG PO (20:26)
[2020-12-07] MEDS: ATORVASTATIN 20 MG TABLET PO (20:27)
[2020-12-07] MEDS: DOCUSATE 100 MG CAPSULE PO (20:27)
[2020-12-07] MEDS: PANTOPRAZOLE DR 20 MG TABLET PO (21:57)
[2020-12-07] MEDS: ASPIRIN EC 81 MG TABLET PO ×2 (22:06→22:08)
[2020-12-07] MEDS: METFORMIN HCL 500 MG TABLET PO (22:06)
[2020-12-07] MEDS: BUSPIRONE 5 MG TABLET 7.5 MG PO (22:07)
[2020-12-08] VITALS: BP 171/83; PULSE 89; RESP 16; TEMP 37.1; O2SAT 98
[2020-12-08] MEDS: IBUPROFEN 400 MG TABLET PO ×5 (00:41→17:05)
[2020-12-08 03:39] VITALS: BP 160/75; PULSE 83; RESP 18; TEMP 36.8; O2SAT 96
[2020-12-08] MEDS: HYDROMORPHONE 2 MG TABLET PO ×5 (04:53→18:02)
[2020-12-08] MEDS: PANTOPRAZOLE DR 20 MG TABLET PO (06:19)
[2020-12-08 06:27] LABS: Hematocrit 33.8 % (36-46); Hemoglobin 11.3 g/dL (12.0-16.0)
--- NOTE | 2020-12-08 07:32 | PM.DS.1 ---
History of Present Illness History of Present Illness Date Patient Seen: 12/08/20 Time Patient Seen: 07:32 Chief complaint: Left Total Knee Arthroplasty *OPB* Narrative: The history and physical is contained in the chart in a previously completed note. Please refer to that note for this information. Discharge Providers Provider Date of admission: December 07, 2020 Discharge Date: 12/08/20 Primary care physician: Padma Whittington DO Consults: 12/07/20 10:55 Consult to Discharge Planning Routine Comment: Consult to Physical Therapy Evaluate & Treat Comment: Physician Instructions: postop TKA protocol Discharge provider: Holden Parr MD Summary Hospital Course Discharge Diagnosis: 1. Left knee osteoarthritis 2. Post hemorrhagic anemia Hospital Course: The patient was admitted to the hospital and taken directly to the operating room December 07, 2020. She underwent a left total knee replacement without complications. On postoperative day 1 she had reasonable comfort. Plan at the time of this dictation is for discharge after physical therapy. Status at Discharge Cognitive/behavioral status at discharge: at baseline, oriented Functional status at discharge: uses cane/walker Overall status at discharge: patient is progressing back to baseline Time Spent with Patient Time spent: Less than 30 minutes Exam Vital Signs (past 8 hours): - 12/08/20 00:00 12/08/20 03:39 Temperature 98.8 F 98.3 F Pulse Rate 89 83 Respiratory Rate 16 18 Blood Pressure 171/83 H 160/75 H Pulse Oximetry 98 96 Oxygen Delivery Method Room Air,CPAP Oxygen Flow Rate 1 Narrative Exam Narrative: Left knee wound is dressed with no drainage on the bandage. Calf is soft. Light touch and motion are intact in the left lower extremity. Objective Labs Result Diagrams: 12/08/20 05:05 Labs: Laboratory Results - last 24 hr 12/08/20 05:05 Hgb 11.3 L Hct 33.8 L PFSH Medical History (Updated 12/04/20 @ 09:23 by Elida Mcfarland RN) Anxiety Cervical dysplasia Depression Diabetes Difficult intravenous access GERD (gastroesophageal reflux disease) HLD (hyperlipidemia) HTN (hypertension) BECCA on CPAP Osteoarthritis Pancreatitis (04/06/14) PTSD (post-traumatic stress disorder) Sepsis (09/2014) Surgical History (Updated 12/04/20 @ 09:22 by Elida Mcfarland RN) History of 2 sections History of bilateral tubal ligation (1993) History of colonoscopy with polypectomy History of conization of cervix History of lumbar fusion (07/29/09) History of lumbar fusion (2017) Hx of appendectomy Hx of bilateral cataract extraction Hx of dilation and curettage Hx of laminectomy (07/2019) S/p bilateral blepharoplasty (2020) S/P cervical spinal fusion Social History household members: spouse Smoking Status: Former smoker alcohol intake: current Discharge Assessment & Plan Assessment and Plan Assessment: Stable postoperative day 1 status post left total knee replacement. She has a mild post hemorrhagic anemia which should not require specific treatment. Plan of Treatment: Discharge home after physical therapy. Follow up my office in 2 weeks. Discharge prescriptions have been sent for oxycodone, Vistaril and Zofran for nausea. In addition she has been instructed in the use of low-dose aspirin for DVT prophylaxis and Tylenol for additional pain control. Discharge Plan Discharge Plan Patient Disposition: Home Discharge orders & Medications Discharge Orders: Discharge (Order); Ordered 12/08/20 Ordered By: Holden Parr Prescriptions: New acetaminophen 325 mg Tablet 650 mg PO TID 30 Days Qty: 180 RF: 0 aspirin 81 mg Tablet,Delayed Release (Dr/Ec) 81 mg PO BID 42 Days Qty: 84 RF: 0 ondansetron 4 mg Tablet,Disintegrating 4 mg PO Q4HR PRN (Reason: Nausea) Qty: 20 RF: 0 oxycodone 5 mg Tablet 5 mg PO Q4H PRN (Reason: Pain, Moderate (4-6)) Qty: 40 RF: 0 hydroxyzine pamoate 25 mg Capsule 25 mg PO Q6HR PRN (Reason: Nausea) Qty: 30 RF: 0 Continued metformin 500 mg Tablet 500 mg PO BID Qty: 0 RF: 0 gabapentin 600 mg Tablet 600 mg PO BID RF: 0 atorvastatin 20 mg Tablet 20 mg PO BEDTIME RF: 0 amlodipine 10 mg Tablet 10 mg PO DAILY RF: 0 omeprazole 20 mg Capsule,Delayed Release(Dr/Ec) 20 mg PO BID RF: 0 buspirone 15 mg Tablet 7.5 mg PO BID RF: 0 duloxetine 30 mg Capsule,Delayed Release(Dr/Ec) 60 mg PO BEDTIME RF: 0 Rybelsus 7 mg Tablet 7 mg PO QAM RF: 0 Follow up/Referrals: Holden Parr MD [Physician] - 2 Weeks Padma Whittington DO [Primary Care Provider] - Diet/Activity/Treatments Diet: Diet as Tolerated and Carb-consistent/Diabetic Activity: You may bear weight as tolerated on your left leg. Cold/Heat Therapy: Apply ice to your left knee for 15 minutes of every hour as needed for pain control. Skin/Wound/Dressing Care Report to your healthcare provider any signs of infection, such as:: chills, fever, night sweats, increased pain, unusual drainage and unusual redness Dressing: You may remove the Shaji wrap 3 days after surgery and shower normally with the deeper dressing in place. Leave the deeper dressing in place until your follow-up. If the central strip of the deeper dressing becomes saturated with either water or blood, please call the office. Visit Report/Discharge Packet Instructions: DI for Knee Replacement Stand Alone Forms: Surgery Discharge Discharge Data Primary Care Provider: Padma Whittington Attending Provider: Holden Parr Quality VTE Deep Vein Thrombosis/Pulmonary Embolism Present on Admission: No
[2020-12-08 08:00] VITALS: BP 130/65; PULSE 74; RESP 15; TEMP 36.6; O2SAT 95
[2020-12-08] MEDS: BUSPIRONE 5 MG TABLET 7.5 MG PO (08:48)
[2020-12-08] MEDS: DOCUSATE 100 MG CAPSULE PO (08:49)
[2020-12-08] MEDS: METFORMIN HCL 500 MG TABLET PO (08:50)
[2020-12-08] MEDS: ACETAMINOPHEN 325 MG TABLET 650 MG PO ×2 (08:50→15:13)
[2020-12-08] MEDS: AMLODIPINE 5 MG TABLET 10 MG PO (08:50)
[2020-12-08] MEDS: GABAPENTIN 600 MG TABLET PO (08:51)
[2020-12-08] MEDS: hydrOXYzine pamoate 25 MG CAPSULE PO (08:59)
[2020-12-08] MEDS: polyethylene glycoL 3350 17 GM POWD.PACK PO (08:59)
[2020-12-08] MEDS: INSULIN LISPRO 100 UNIT/ML 3ML VIAL SUBCUT ×2 (09:01→17:04)
--- NOTE | 2020-12-08 09:48 | PT.IPTN ---
Current Diagnoses Unilateral primary osteoarthritis, left knee (12/07/20) Surgery Performed Operation Date: 12/07/20 07:45 Actual Procedures p Total Knee Arthroplasty(Left) - Holden Parr MD Physical Therapy Treatment Note M2 PT-IP Current Condition Start: 12/07/20 11:43 Freq: NEEDED Status: Active Protocol: Document 12/07/20 14:18 JG (Rec: 12/07/20 14:55 JG [id number]) Physical Therapy Current Condition Current Condition Evaluation Date 12/07/20 Treatment Diagnosis L TKA, limited L knee ROM, impaired mobility Onset Date 12/07/20 M3 PT-IP Subjective Start: 12/07/20 11:43 Freq: NEEDED Status: Active Protocol: Document 12/08/20 09:48 AW (Rec: 12/08/20 11:19 AW [id number]) Subjective Physical Therapy Visit Type Type Treatment Note Visit Start Time 09:07 Visit Stop Time 09:48 Total Visit Minutes 41 Number of SUPERVISING DEPUTY Visits 0 Physical Therapy Visit Comments Patient Comments Enriqueta had a rough night with pain but is motivated to work with PT this morning. Therapy Pain Assessment Pain When Pain Assessed During Mobility Pain Present Pain Present Pain Reported Location L knee Intensity 6 Scale Used Numeric (0 - 10) Pain Behaviors Facial Grimacing,Wincing Pain Management Techniques Apply Cold,Timing of Activity with Medications M4 PT-IP Mobility and Gait Start: 12/07/20 11:43 Freq: NEEDED Status: Active Protocol: Document 12/08/20 09:48 AW (Rec: 12/08/20 11:19 AW [id number]) PT-Bed Mobility Assessment Supine to Sit Supine to Sit Minimal Assistance PT-Transfer Assessment Sit to and From Stand Sit to and from Stand Contact Guard Assistance,Use of Upper Extremities Equipment Transfer Assistive Device Gait Belt,Front Wheeled Walker Orthotic/Prosthetic Devices or Brace: No Transfers Transfer Destination Chair,Toilet Transfer Technique amb with FWW Transfer Ability Level of Assist Contact Guard Assistance,Use of Upper Extremities Comments Mobility Comments Pt was lying in bed as PT arrived. She completed supine to sit min assist with cues to use RLE to assist LLE. She scooted to EOB SBA and stood from the bed CGA using FWW to steady herself. She walked to the toilet with FWW SBA and transferred to/from the toilet SBA with cues for LLE placement. Pt then walked with FWW SBA to the sink, needing cues to square the walker up with her task. She washed her hands and pulled her hair up with good balance and safety awareness. She then donned a face mask and ambulated slowly to the therapy stairs with FWW SBA. After stair training, she returned to the room and transferred to the chair SBA. Pt was left with fresh ice packs applied to left knee, call light and tray table in reach. Gait Assessment Gait Gait Assistance Required: Standby Assistance Distance (Feet) 120 Able to Maintain Weight Bearing Status Yes During Gait Assistive Devices Assistive Device Gait Belt,Front Wheeled Walker Orthotic/Prosthetic Devices or Brace: No Gait Deviations General Gait Pattern Antalgic,Decreased Feet Clearance,Step-to Gait Factors Limiting Gait Function Factors Limiting Gait Function Decreased Activity Tolerance, Decreased Strength,Limited Range of Motion,Pain Comments Gait Comments Pt progressed from step-to to step-through gait pattern with cues for increased knee flexion in swing phase. She was safe with FWW SBA. Stair Climbing Assessment Evaluation Level of Assist On Stairs Contact Guard Assistance, Minimal Assistance,1 Person Assistance Devices Stair Climbing Assistive Devices Straight Cane,Left Railing, Right Railing Technique/Endurance Stair Climbing Direction Ascend and Descend Stair Climbing Technique Step to Step Number of Steps Climbed 3 Stair Climbing Set # Repetitions (reps) 2 Comments Stair Climbing Comments PT educated pt on stair climbing technique. Pt climbed steps with B rails on first attempt CGA to learn patterning. On second attempt, she used unilateral rail and SPC min A x 1 for ascent and CGA for descent. PT-Balance Assessment Sitting Balance and Reactions Static Sitting Balance Ability Good Dynamic Sitting Balance Ability Good Standing Balance and Reactions Static Standing Balance Ability Good Dynamic Standing Balance Ability Fair Device Used FWW Comments Other Balance Tests/Deviations/Treatment Pt more confident today and : able to manage FWW with SBA. M5 PT-IP Objective Assessments Start: 12/07/20 11:43 Freq: NEEDED Status: Active Protocol: Document 12/07/20 14:18 AW (Rec: 12/07/20 15:17 AW [id number]) Orientation Orientation/Cognition Level of Alertness Alert Orientation Name,Day of Week,Place, Situation Language Function Ability No Deficits Noted Safety Awareness Understands Safety Issues Gross Range of Motion Lower Extremity ROM Assessment Left Impaired Strength Lower Extremity Strength Assessment Bilaterally Impaired Ankle 4/5 PF; 4-/5 DF Sensation Assessment Sensation Gross Sensation Right LE Impaired Light Touch Impaired Comments Sensation Comments Pt reports typical R foot numbness. Muscle Tone Muscle Tone WNL Yes M6 PT-IP Treatment Start: 12/07/20 11:43 Freq: NEEDED Status: Active Protocol: Document 12/08/20 09:48 AW (Rec: 12/08/20 11:19 AW [id number]) Physical Therapy Treatment Exercises Exercises Quad Sets,Heel Slides,Seated Knee Flexion/Extension Education Education Provided Weight Bearing Status,Safety Other Treatments Other Treatment Performed Educated pt on importance of regular, brief bouts of activity during the day, icing for pain management, and ROM exercises. M7 PT-IP Assessment and Plan Start: 12/07/20 11:43 Freq: NEEDED Status: Active Protocol: Document 12/08/20 09:48 AW (Rec: 12/08/20 11:19 AW [id number]) PT Summary Assessment and Plan Summary Impairments Pain,ROM,Strength,Balance, Sensation,Bed Mobility, Transfers,Gait,Activity Tolerance Progress Towards Goals Progressing Toward Goals Assessment Summary Enriqueta improved her mobility significantly this session but still requires up to min assist for stair navigation. She would benefit from additional acute PT with her spouse present to review stair management and progress her mobility independence. Pt will be safe to discharge home with spouse assist and outpatient PT once medically stable. Goals Bed Mobility Goal Standby Assistance Transfer Goal Standby Assistance,Front Wheeled Walker Gait Goal Standby Assistance,Front Wheel Walker Gait Distance 150 Other Goals - up/down 12 steps with unilateral rail and SPC SBA Days to Meet Goals 5 Frequency of Treatment Frequency Of Treatment Twice a Day Treatment Plan Physical Therapy Treatment Plan Bed Mobility Training,Transfer Training,Gait Training, Therapeutic Exercise,Balance Retraining,Post Op Education, Discharge Planning,Hot or Cold Pack Other Recommendations and Next Treatment caregiver training with pt's Focus spouse with focus on stairs, bed mob; review ther ex Precautions Other Precautions falls Weight Bearing Status Weight Bearing Status Weight Bear as Tolerated Recommendations To Nursing Amount of Assist Needed 1 Person Assist Discharge Recommendations PT Discharge Recommendations Home with Assistance, Outpatient PT Equipment Needed for Home Before transfer bench Discharge Transportation Needs at Discharge Private Vehicle
[2020-12-08 12:00] VITALS: BP 151/60; PULSE 89; RESP 17; TEMP 36.2; O2SAT 95
[2020-12-08] MEDS: ONDANSETRON 4 MG ODT PO (12:00)
--- NOTE | 2020-12-08 12:46 | PT.IPTN ---
Current Diagnoses Unilateral primary osteoarthritis, left knee (12/07/20) Surgery Performed Operation Date: 12/07/20 07:45 Actual Procedures p Total Knee Arthroplasty(Left) - Holden Parr MD Physical Therapy Treatment Note M2 PT-IP Current Condition Start: 12/07/20 11:43 Freq: NEEDED Status: Active Protocol: Document 12/07/20 14:18 JG (Rec: 12/07/20 14:55 JG [id number]) Physical Therapy Current Condition Current Condition Evaluation Date 12/07/20 Treatment Diagnosis L TKA, limited L knee ROM, impaired mobility Onset Date 12/07/20 M3 PT-IP Subjective Start: 12/07/20 11:43 Freq: NEEDED Status: Active Protocol: Document 12/08/20 12:46 AW (Rec: 12/08/20 13:17 AW [id number]) Subjective Physical Therapy Visit Type Type Treatment Note Visit Start Time 12:19 Visit Stop Time 12:46 Total Visit Minutes 27 Notes Pt's spouse, Huang, was present and participated in treatment . Number of AFTER SCHOOL COUNSELOR Visits 0 Physical Therapy Visit Comments Patient Comments Enriqueta has been up in the chair since AM and walked to the bathroom with nursing assist. Therapy Pain Assessment Pain When Pain Assessed During Mobility Pain Present Pain Present Pain Reported Location L knee Scale Used 2/10 at rest; 6/10 during WB Pain Behaviors Facial Grimacing,Wincing Pain Management Techniques Apply Cold,Elevation,Timing of Activity with Medications M4 PT-IP Mobility and Gait Start: 12/07/20 11:43 Freq: NEEDED Status: Active Protocol: Document 12/08/20 12:46 AW (Rec: 12/08/20 13:17 AW [id number]) PT-Bed Mobility Assessment Sit to Supine Sit to Supine Minimal Assistance PT-Transfer Assessment Sit to and From Stand Sit to and from Stand Contact Guard Assistance,Use of Upper Extremities Equipment Transfer Assistive Device Gait Belt,Front Wheeled Walker Orthotic/Prosthetic Devices or Brace: No Transfers Transfer Destination Bed Transfer Technique amb with FWW Transfer Ability Level of Assist Contact Guard Assistance,Use of Upper Extremities Comments Mobility Comments Pt was sitting up in chair as PT arrived. She participated in seated exercise and then stood CGA with FWW. She ambulated 60 feet to the stairs with FWW SBA and returned in similar fashion. She sat EOB and needed min assist for sit to supine. Educated pt on use of strap to lift leg into bed and she practiced in supine, stating she found it helpful. Pt was left with call light and tray table in reach. Her spouse remained in the room. Gait Assessment Gait Gait Assistance Required: Standby Assistance Distance (Feet) 120 Able to Maintain Weight Bearing Status Yes During Gait Assistive Devices Assistive Device Gait Belt,Front Wheeled Walker Orthotic/Prosthetic Devices or Brace: No Gait Deviations General Gait Pattern Antalgic,Decreased Feet Clearance,Step-to Gait Factors Limiting Gait Function Factors Limiting Gait Function Decreased Activity Tolerance, Decreased Strength,Limited Range of Motion,Pain Comments Gait Comments Pt complains of pain in left swing phase. She ambulated to and from therapy stairs but stopped three times each direction to breathe deeply for pain management and to rest her arms. Stair Climbing Assessment Evaluation Level of Assist On Stairs Contact Guard Assistance,1 Person Assistance Devices Stair Climbing Assistive Devices Straight Cane,Left Railing Technique/Endurance Stair Climbing Direction Ascend and Descend Stair Climbing Technique Step to Step Number of Steps Climbed 3 Stair Climbing Set # Repetitions (reps) 1 Comments Stair Climbing Comments Educated pt's spouse on climbing technique for appropriate cues and on guarding technique. Pt needed CGA for safe ascent and descent. PT-Balance Assessment Sitting Balance and Reactions Static Sitting Balance Ability Good Dynamic Sitting Balance Ability Good Standing Balance and Reactions Static Standing Balance Ability Good Dynamic Standing Balance Ability Fair Device Used FWW Comments Other Balance Tests/Deviations/Treatment Slight LOB due to left knee : instability x 2 but pt is able to recover without PT assist. M5 PT-IP Objective Assessments Start: 12/07/20 11:43 Freq: NEEDED Status: Active Protocol: Document 12/07/20 14:18 AW (Rec: 12/07/20 15:17 AW [id number]) Orientation Orientation/Cognition Level of Alertness Alert Orientation Name,Day of Week,Place, Situation Language Function Ability No Deficits Noted Safety Awareness Understands Safety Issues Gross Range of Motion Lower Extremity ROM Assessment Left Impaired Strength Lower Extremity Strength Assessment Bilaterally Impaired Ankle 4/5 PF; 4-/5 DF Sensation Assessment Sensation Gross Sensation Right LE Impaired Light Touch Impaired Comments Sensation Comments Pt reports typical R foot numbness. Muscle Tone Muscle Tone WNL Yes M6 PT-IP Treatment Start: 12/07/20 11:43 Freq: NEEDED Status: Active Protocol: Document 12/08/20 12:46 AW (Rec: 12/08/20 13:17 AW [id number]) Physical Therapy Treatment Exercises Exercises Ankle Pumps,Gluteal Sets,Quad Sets,Heel Slides,Seated Knee Flexion/Extension Knee ROM Measurement 2-82 Education Education Provided Weight Bearing Status,Safety Other Treatments Other Treatment Performed Continued education on ROM focus. Pt's spouse participated in stair training and was able to provide appropriate level of assist and cues. M7 PT-IP Assessment and Plan Start: 12/07/20 11:43 Freq: NEEDED Status: Active Protocol: Document 12/08/20 12:46 AW (Rec: 12/08/20 13:17 AW [id number]) PT Summary Assessment and Plan Summary Impairments Pain,ROM,Strength,Balance, Sensation,Bed Mobility, Transfers,Gait,Activity Tolerance Progress Towards Goals Progressing Toward Goals Assessment Summary Enriqueta continues to improve but is limited by pain/fatigue and had 2 minor LOB from which she was able to recover without PT assist. Her spouse participated in training this session for bed mobility and stair management. Pt has not been able to manage 12 steps in a row yet and this would be a barrier to safe home entry. Pt will be safe to discharge home with spouse assist and outpatient PT when medically cleared but would benefit from continued stair training for endurance. Goals Bed Mobility Goal Standby Assistance Transfer Goal Standby Assistance,Front Wheeled Walker Gait Goal Standby Assistance,Front Wheel Walker Gait Distance 150 Other Goals - up/down 12 steps with unilateral rail and SPC SBA Days to Meet Goals 5 Frequency of Treatment Frequency Of Treatment Twice a Day Treatment Plan Physical Therapy Treatment Plan Bed Mobility Training,Transfer Training,Gait Training, Therapeutic Exercise,Balance Retraining,Post Op Education, Discharge Planning,Hot or Cold Pack Other Recommendations and Next Treatment Stair training with uni rail Focus and SPC. Involve spouse. Precautions Other Precautions falls Weight Bearing Status Weight Bearing Status Weight Bear as Tolerated Recommendations To Nursing Amount of Assist Needed 1 Person Assist Discharge Recommendations PT Discharge Recommendations Home with Assistance, Outpatient PT Equipment Needed for Home Before transfer bench Discharge Transportation Needs at Discharge Private Vehicle
--- NOTE | 2020-12-08 13:22 | CM.DANOTE ---
DCP: Case received, EMR reviewed and met with patient. Introduced self and role. Was able to obtain information regarding patient's baseline activity status prior to her surgery. DCP assessment completed with information currently available. Patient is a 65 year old female who admitted yesterday morning to the care of the orthopedic team. PCP: Dr. Whittington. Payer: confirmed: Kike Espinoza. Patient came to the hospital via private vehicle for a surgical procedure. She had left total knee arthroplasty. Patient has history of osteoarthritis of her left knee. Met with patient in her room. She was sitting up in her bed. She is alert and oriented, and resides in [place] with her spouse, Huang. She does have a cane for home use. She is independent at her baseline. P: Patient is to discharge home today when cleared by P.T. She is set up with outpatient P.T. Jazmín Meadows RN/Water Taxi Captain Discharge Planning/Care Management Advanced directive, confirm from FAMILY Start: 12/07/20 13:41 Freq: Q24H Status: Active Protocol: Document 12/07/20 18:00 KMD (Rec: 12/07/20 19:13 KMD [id number]) Advance Directive, confirm on record Time 19:13 Person contacted [place] Copy received No CM Discharge Assessment Start: 12/08/20 13:09 Freq: Status: Active Protocol: Document 12/08/20 13:10 VM (Rec: 12/08/20 13:18 [id number]) Discharge Planning Assessment Assigned Schedule Manager Jazmín Meadows RN/Water Taxi Captain Advance Directives? Yes Advance Directives on File No History Provided By Patient,Medical Record Prior Living Arrangements House Household Members spouse Type of transporation used prior to Drives own vehicle admit Independent with ADL's Yes Is patient alert and oriented? Yes DME Already Rented / Owned Cane Patient/Family Preference OP PT Therapy Barriers to Discharge No Discharge Plan Home Transportation Arrangement Spouse Referrals Initiated None needed Whiteboard Updated in Patient Room with Yes name and ext. # of Schedule Manager Review Status In Process Next Review Type Continued Stay Review Pre-Anesthesia Assessment Start: 11/30/20 12:31 Freq: Status: Complete Protocol: Document 11/30/20 12:31 CAB (Rec: 11/30/20 13:43 CAB [id number]) Pre-Anesthesia Assessment PAC Comment Difficult IV start, I have deep veins Preferred Name Enriqueta Patient Information Reviewed Via Phone Assessment Assessment Completed With Patient Diagnostic Results BMP/CMP,CBC,EKG Comment Outside labs scanned, EKG @ [facility] 09/24/20, COVID screen @ [facility] Primary Care Provider Padma Whittington Seen Specialist in Last 12 Months Yes Specialist Seen Orthopedist,Other Primary Language Khmer Media Librarian Required No Height 5 ft 2 in Weight 209 lb Body Mass Index (BMI) 38.2 Hearing Ability Normal Visual Assist Glasses Dentition Type Teeth, Natural Present Barriers to Learning None Hx Anesthesia Reactions Yes: Trouble coming out of anesthesia after 11 hour surgery for back Hx Family Anesthesia Reaction No Hx Malignant Hyperthermia No Hx Blood Transfusions Yes: s/p anemia Hx Blood Transfusion Reaction No Anesthesia Review Requested No alcohol intake current alcohol intake frequency holidays/special occasions only Smoking Status Former smoker how long ago did patient quit smoking Quit 1993 Substance Use Type does not use Pain Present Pain Reported Musculoskeletal Symptoms Abnormal Gait,Back Pain, Difficulty Walking,Joint Pain, Numbness,Radiating Pain into Limb,Tingling History of Falling (Recent or History of No ) Patient is completely paralyzed or No completely immobile Prosthesis or Orthotic Device Cane Mental Status Oriented to own ability Is patient on oxygen? No Does patient have COLEMAN/SOB No Hx Sleep Apnea Yes CPAP/BIPAP use prescribed and used routinely Will Bring CPAP/BIPAP DOS Yes Currently Taking a Beta Simone No Can You Climb a Flight of Stairs Without Yes SOB Hx Chest Pain No Hx SOB No Hx Syncope or Dizziness No Anti-Coagulant Therapy No Has a Research Clerk No Cardiac Testing No Hx Pacemaker/ICD No Pacemaker Rep Required? No Diet Type At Home Regular,Low Carb dysphagia No Gastrointestinal Symptoms Reflux Bladder Pattern Incontinent, Stress,Urgency Urinary Catheter Present No Hx Urinary Self Catheterization No Diabetes Yes: Continous glucose monitor HgbA1C 7.1 Date 10/28/20 Patient No Lactating No Presence of External or Internal Medical Yes: Thoracic/cervical Devices hardware, CPAP Have you had any close contact with No someone diagnosed with COVID-19? Received a COVID vaccine? Yes Received all doses? Yes Marital Status Lives With spouse Prior Living Arrangements House Number of Floors (Floors) One Floor Support System Spouse Does the Patient Have Assistance After Yes Surgery Patient Discharge Plan Description Return Home Comment Pt advised 1 day length of stay per surgeon Feels Safe in Current Environment Yes Been Physically Hurt or Threatened By a No Person in Current Environment Do you have thoughts of harming yourself None or others? Are you currently considering suicide? No Do you have a plan to hurt yourself or No Plan others? Do You Have Any Spiritual Beliefs That No May Affect Your HC Choices? Do You Have Any Cultural Practices That No May Affect Your HC Choices? Comment Jewish Who Can We Speak to About Patient's Care Family, friends Identifying Code for Release of Patient Declines to issue Information Health Care Proxy/Next of Kin Huang () Health Care Proxy Emergency Contact Name Celena (daughter), Bhumi ( daughter) Emergency Contact Phone Number Celena: [phone] Bhumi: pt to update dos Advance Directives? No Power of Warehouse Logistics Manager No PAC Instructions Bring CPAP/BIPAP,Diabetes instructions,Do not shave/clip surgical site,Durable medical equipment,Medications to take /avoid,Nasal antibiotic,No ETOH/petroleum product on skin DOS,NPO,Post-op transportation,Pre-surgical wash,Sturdy shoes/comfortable clothes,Do not bring valuables and remove jewelry
--- NOTE | 2020-12-08 18:48 | PC.NURSE ---
Evening Shift/Discharge Note- Patient discharged home per Dr Parr. Discharge instructions and education reviewed with patient and signed. IV line removed and bandage applied. Aquacell and tad wrap to left knee c/d/i. ASSOCIATE BRAND MANAGER helped patient mget dressed and pack up personal belongings. Patient left via wheelchair with ASSOCIATE BRAND MANAGER and to private car at 1815.
== END 2020-12-08 18:30 | disposition home or self-care (01) ==
LOC: OR 06:28 → AC 06:29
PROVIDERS: Admitting Provider Orthopaedic Surgery; PCP Family Medicine; Referring Provider Orthopaedic Surgery; Visit Provider Orthopaedic Surgery
PROC: 0SRD0JZ Replacement of Left Knee Joint with Synthetic Substitute, Open Approach (ICD-10-PCS; CPT 27447; principal; 2020-12-07 07:45)
DX: M17.12 Unilateral primary osteoarthritis, left knee (principal); I10 Essential (primary) hypertension; F32.9 Major depressive disorder, single episode, unspecified; E11.9 Type 2 diabetes mellitus without complications; E78.5 Hyperlipidemia, unspecified; F41.9 Anxiety disorder, unspecified; K21.9 Gastro-esophageal reflux disease without esophagitis; G47.33 Obstructive sleep apnea (adult) (pediatric); Z79.84 Long term (current) use of oral hypoglycemic drugs
CPT/HCPCS: 27447; 36415; 73560; 82962; 85014; 85018; 94762; 97110; 97116; 97162; 97530; C1776; G0378; C9290; J0171; J0690; J1170; J1815; J2250; J2270; J2274; J2405; J2704; J2765; J3010

== ENCOUNTER → 2022-07-01 15:29 | Outpatient (CLI) | payer OTHER, SELFPAY ==
[2022-06-16 17:00] VITALS: BMI 38.2
[2022-07-01 17:19] LABS: Alanine Aminotransferase 51 IU/L (<35); Albumin 4.7 g/dL (3.5-5.0); Albumin Globulin Ratio 1.9 (1.0-2.8); Alkaline Phosphatase 68 U/L (38-126); Aspartate Aminotransferase 31 IU/L (14-36); BUN Creatinine Ratio 17.7 (6-22); Bilirubin Total 0.7 mg/dL (0.2-1.3); Blood Urea Nitrogen 14 mg/dL (7-17); Carbon Dioxide 29 mmol/L (22-32); Chloride 100 mmol/L (98-107); Cholesterol 175 mg/dL (140-199); Estimated Glomerular Filt Rate > 60 mL/min (>60); Globulin 2.5 g/dL (1.7-4.1); Glucose 88 mg/dL (80-110); HDL Cholesterol 49 mg/dL (40-60); HEMOLYSIS < 15 (0-50); LDL Cholesterol Calculated 91 mg/dL (<100); Potassium 4.3 mmol/L (3.4-5.1); Sodium 138 mmol/L (137-145); Total Protein 7.2 g/dL (6.3-8.2); Triglycerides 175 mg/dL (35-150)
[2022-07-01 18:00] LABS: Creatinine Urine Random 80.6 mg/dL
[2022-07-01 18:04] LABS: Microalbumi Creatinin Ratio Ur 42.1 ug/mg CR (<30); Microalbumin Urine Random 3.4 mg/dL (0-1.6)
[2022-07-04 00:38] LABS: Labcorp Hemoglobin (Hb) A1c 6.9 % (4.8-5.6)
== END ==
PROVIDERS: PCP Family Medicine; Referring Provider Family Medicine; Visit Provider Family Medicine
DX: E11.9 Type 2 diabetes mellitus without complications (principal); E78.5 Hyperlipidemia, unspecified; I10 Essential (primary) hypertension
CPT/HCPCS: 36415; 80053; 80061; 82043; 82570; 83036

== ENCOUNTER → 2022-09-28 13:22 | Outpatient (CLI) | payer OTHER, SELFPAY ==
[2022-06-16 17:00] VITALS: BMI 38.2
[2022-09-28 14:20] LABS: BUN Creatinine Ratio 18.7 (6-22); Blood Urea Nitrogen 17 mg/dL (7-17); Calcium 9.6 mg/dL (8.4-10.2); Carbon Dioxide 33 mmol/L (22-32); Chloride 99 mmol/L (98-107); Estimated Glomerular Filt Rate > 60 mL/min (>60); Glucose 88 mg/dL (80-110); HEMOLYSIS < 15 (0-50); Potassium 3.8 mmol/L (3.4-5.1); Sodium 138 mmol/L (137-145)
[2022-09-29 05:13] LABS: Labcorp Hemoglobin (Hb) A1c 6.5 % (4.8-5.6)
== END ==
PROVIDERS: PCP Family Medicine; Referring Provider Family Medicine; Visit Provider Family Medicine
DX: E11.9 Type 2 diabetes mellitus without complications (principal); I10 Essential (primary) hypertension
CPT/HCPCS: 36415; 80048; 83036

== ENCOUNTER → 2022-10-27 12:52 | Outpatient (CLI) | payer OTHER, SELFPAY ==
[2022-06-16 17:00] VITALS: BMI 38.2
[2022-10-27 13:30] LABS: Appearance Urine UA CLEAR; Bilirubin Urine UA NEGATIVE (NEGATIVE); Color Urine UA YELLOW; Glucose Urine UA NEGATIVE (Negative); Ketones Urine UA NEGATIVE (NEGATIVE); Leukocyte Esterase Urine UA NEGATIVE (NEGATIVE); Nitrite Urine UA NEGATIVE (Negative); Occult Blood Urine UA NEGATIVE (Negative); Protein Urine UA NEGATIVE (Negative)
[2022-10-27 13:45] LABS: Bacteria Urine None Seen; Culture Indicated Urine Cult Not Indicated; RBC Urine 0-1/HPF (0-5/HPF); Squamous Epithelial Cell Urine 0-1 /HPF (0-5/HPF); WBC Urine None Seen (0-5/HPF)
[2022-10-27 14:17] LABS: Add Manual Diff / Slide Review NO; Basophils Absolute Auto 100 /uL (0-100); Basophils Percent Auto 0.9 % (0-2); Eosinophils Absolute Auto 300 /uL (0-450); Eosinophils Percent Auto 3.6 % (2-4); Hematocrit 35.7 % (36-46); Hemoglobin 12.4 g/dL (12.0-16.0); Lymphocytes Absolute Auto 2400 /uL (1100-4500); Lymphocytes Percent Auto 30.9 % (25-40); Mean Corpuscular HGB Conc 34.6 % (30-36); Mean Corpuscular Hemoglobin 29.3 PG (26-34); Mean Corpuscular Volume 84.5 fL (80-100); Monocytes Absolute Auto 500 /uL (0-900); Monocytes Percent Auto 5.9 % (3-14); Neutrophils Absolute Auto 4500 /uL (1500-7000); Neutrophils Percent Auto 58.7 % (50-75); Platelet Count 304 X10^3/uL (150-400); Red Blood Cell Count 4.22 X10^6/uL (4.0-5.2); Red Cell Distribution Width 13.5 % (11.6-14.8); White Blood Cell Count 7.7 X10^3/uL (4.5-11.0)
[2022-10-27 14:26] LABS: Hemoglobin A1C% w Est Avg Glu 5.8 % (4.0-6.0)
[2022-10-27 14:40] LABS: BUN Creatinine Ratio 18.9 (6-22); Blood Urea Nitrogen 18 mg/dL (7-17); Calcium 10.3 mg/dL (8.4-10.2); Carbon Dioxide 31 mmol/L (22-32); Chloride 97 mmol/L (98-107); Estimated Glomerular Filt Rate > 60 mL/min (>60); Glucose 106 mg/dL (80-110); HEMOLYSIS < 15 (0-50); Sodium 138 mmol/L (137-145)
== END ==
PROVIDERS: PCP Family Medicine; Referring Provider Orthopaedic Surgery; Visit Provider Orthopaedic Surgery
DX: Z01.818 Encounter for other preprocedural examination (principal); Z01.812 Encounter for preprocedural laboratory examination; R73.9 Hyperglycemia, unspecified; N39.0 Urinary tract infection, site not specified
CPT/HCPCS: 36415; 80048; 81001; 83036; 85025; 93005; 93010

== ENCOUNTER → 2022-11-22 10:19 | Outpatient (CLI) | payer OTHER, SELFPAY ==
[2022-06-16 17:00] VITALS: BMI 38.2
--- NOTE | 2022-11-22 | DI.RAD.S_ITS ---
Bone Density Report Name: ALESSANDRA MALIK Age: 67 Sex: Female Ethnicity: White Date of : 1955 Indication: postmenopausal; screening for osteoporosis; Referring Provider: Pj Hudson Study: Bone densitometry was performed. Exam Date: November 22, 2022 Accession number: [id number] Bone Density: Region BMD T-score Z-score Classification Femoral Neck (Left) 0.809 -0.4 1.3 Normal Total Hip (Left) 0.963 0.2 1.5 Normal Femoral Neck (Right) 0.771 -0.7 0.9 Normal Total Hip (Right) 0.951 0.1 1.4 Normal Total Hip Mean 0.957 0.2 1.5 Normal Total Forearm (Left) 0.571 -0.1 1.6 Normal 1/3 Forearm (Left) 0.635 -1.0 0.9 Normal UD Forearm (Left) 0.498 1.0 2.3 Normal World Health Organization criteria for BMD impression classify patients as: Normal (T-score at or above -1.0), Osteopenia (T-score between -1.0 and -2.5), or Osteoporosis (T-score at or below -2.5). 10-year Fracture Risk: FRAX not reported because: All T-scores for Spine Total, Hip Total, Femoral Neck at or above -1.0 Impression: The patient has normal bone mass. Discussion: BONE DENSITY IS ABOVE THE MINIMUM DESIRABLE LEVEL AT ALL SKELETAL SITES TESTED. This patient's bone mineral density is above the minimum desirable level (T-score -1.0 or better) at all sites measured. The patient should follow a healthful lifestyle (good nutrition with adequate calcium and vitamin D, and appropriate weight-bearing exercise). Follow-Up: Consider repeating this study in 5 years or sooner if there is some new clinical indication. Reported by: AUSTIN PLAZA M.D. on 11/22/2022 11:39:00 AM.
== END ==
PROVIDERS: PCP Family Medicine; Referring Provider Orthopaedic Surgery Adult Reconstructive Orthopaedic Surgery; Visit Provider Orthopaedic Surgery Adult Reconstructive Orthopaedic Surgery
DX: M16.12 Unilateral primary osteoarthritis, left hip (principal); Z13.820 Encounter for screening for osteoporosis; Z78.0 Asymptomatic menopausal state
CPT/HCPCS: 77080

== ENCOUNTER 2022-12-08 06:32 | Day surgery (SDC) | payer OTHER, SELFPAY ==
[2022-06-16 17:00] VITALS: BMI 38.2
[2022-12-02 09:50] VITALS: BMI 37.6
[2022-12-08] VITALS (14 sets, daily range): BP systolic 96–130; BP diastolic 47–72; PULSE 66–95; RESP 12–23; TEMP 36.1–37.2; O2SAT 93–98; BMI 37.6
--- NOTE | 2022-12-08 | DI.RAD.S_ITS ---
PROCEDURE: XR HIP W PEL IF DONE LT 2V INDICATIONS: LT ANT HIP TECHNIQUE: 2 fluoroscopic view(s) of the hip acquired. COMPARISON: [facility], GALINDO, XR HIP W PEL IF DONE LT 2V, 12/08/2022, 10:00. FINDINGS: 2 fluoroscopic images of the left hip arthroplasty. The hardware projects in the expected location. IMPRESSION: Intraoperative guidance provided. Dictated by: Omkar Farias M.D. on 12/08/2022 at 21:02 Approved by: Omkar Farias M.D. on 12/08/2022 at 21:03
--- NOTE | 2022-12-08 06:29 | DI.RAD.S_ITS ---
PROCEDURE: XR HIP W PEL IF DONE LT 2V INDICATIONS: CHANTELL ANTERIOR TECHNIQUE: 2 view(s) of the hip acquired. COMPARISON: [facility], CR, XR HIP W PEL IF DONE LT 2V, 12/08/2022, 9:00. FINDINGS: Bones: Patient is status post left hip arthroplasty, with hardware components in expected positions. No perihardware lucency to suggest hardware loosening. The hip joint appears congruent with anatomic alignment. Mild to moderate right hip joint space narrowing. The visualized bony structures appear intact. Partially visualized bilateral iliac screws. Soft tissues: Overlying postoperative changes are noted. No suspicious soft tissue densities. IMPRESSION: Left hip arthroplasty is intact without complication. Anatomic alignment. Dictated by: Joanie Rodgers M.D. on 12/08/2022 at 18:30 Approved by: Joanie Rodgers M.D. on 12/08/2022 at 18:33
[2022-12-08] MEDS: ACETAMINOPHEN 325 MG TABLET 975 MG PO (07:17)
[2022-12-08] MEDS: PREGABALIN 75 MG CAPSULE PO (07:18)
[2022-12-08] MEDS: LACTATED RINGERS 1,000 ML 42 ML IV ×2 (07:18→09:56)
[2022-12-08] MEDS: CELECOXIB 200 MG CAPSULE PO (07:18)
[2022-12-08] MEDS: SCOPOLAMINE 1 PATCH TOP (07:32)
--- NOTE | 2022-12-08 07:33 | PM.PREOP ---
Pre-operative Note Interval Note History & Physical reviewed/Exam performed by Physician: Yes Changes to H&P: No
[2022-12-08] MEDS: CEFAZOLIN 2 GM/100 ML PREMIX 100 ML IV ×3 (07:55→23:58)
[2022-12-08] MEDS: TRANEXAMIC ACID 1,000 MG VIAL 1000 MG INJ ×2 (08:05→09:40)
--- NOTE | 2022-12-08 08:24 | SUR.OPER ---
Supine on padded [place] table with bilateral legs secured in padded positioning boots and suspended in positioning spars, operative leg in traction per surgeon. Head on one pillow. Arms secured on padded armboards <90 degrees abduction. Padded perineal post in place per surgeon.
[2022-12-08] MEDS: ROPIVACAINE/EPI/CLONIDINE/KET 50 ML SYRINGE INJ (08:28)
[2022-12-08] MEDS: SODIUM CHLORIDE IRRIG SOLUTION 250 ML, POVIDONE-IODINE SPONGE STICKS 1 APPLIC IRR (08:58)
--- NOTE | 2022-12-08 09:49 | PM.OP.1 ---
Operative Date/Time/Diagnoses Date of procedure: 12/08/22 Time of procedure: 08:40 Pre-op diagnosis: Left hip arthritis Post-op diagnosis: same Procedure & Clinicians Procedure: Left total hip arthroplasty using a monoblock to mobility articulation Same procedure as scheduled: Yes Surgeon: Pj Hudson Golf Teacher: Holger Garsia Anesthesia Type: General and Local Operative Notes Prosthetic devices, grafts, tissues, transplants, or devices: Depuy Bimentum monoblock dual mobility cup 51 mm, Depuy Actis size 5 standard offset uncemented stem, 28 mm + 1.5 femoral head in 28/51 mm dual mobility head Estimated Blood Loss (mL): 250 Procedure in detail: This 67-year-old female with a history of a spinal fusion from L1-S1 was seen in clinic where she was diagnosed with end-stage left hip arthritis. This was causing her severe activity limitations. She was counseled regarding operative and nonoperative management wished to proceed with surgical intervention in the form of a total hip arthroplasty. Risks of the procedure were discussed with her at length including in particular the risk of prosthetic hip dislocation given her history of a spinal pelvic fusion. She was met in the preoperative holding area the day of surgery and the correct operative site on the left hip was marked. Informed consent was obtained. Risks and benefits were discussed at length. All questions were answered. She was wheeled back to the operating room and general anesthesia was induced as her spinal fusion precluded the use of a spinal anesthetic. She was placed supine on the [place] table and all bony prominences were padded. Her arms were prepped free. She was prepped and draped in the usual sterile fashion. A time-out procedure was performed verifying the correct patient operative procedure operative extremity allergies medical comorbidities. Imaging was reviewed demonstrating the planned left total hip arthroplasty. MANINDER Ramos was assisting during the procedure and was vital for the safe performance of the operation. He assisted with patient positioning, soft tissue retraction, visualization and wound closure. A direct anterior approach the hip was utilized. The TFL was identified and the fascia was incised. Cobra retractors were placed superior and inferior to the femoral neck. The lateral circumflex vessels were placed under tension and coagulated. The reflected head of rectus femoris was released and a capsulotomy was made in line with the femoral neck. The lateral and medial leaflets were tagged with tag stitches and a soft tissue protector was placed in the wound. The Cobra retractors were placed intracapsularly around the femoral neck superiorly and onto the femoral head medially. The dissection was continued medially until the lesser trochanter. The neck cut was then measured off of the lesser trochanter relative to the templated x-rays. This was an 11 mm neck cut. The neck cut was made and a napkin ring was cut. The femoral head and napkin ring were removed. Retractors were placed along the anterior and posterior wall of the acetabulum and reamers were introduced. I initially reamed with a 49 mm Reamer under fluoroscopy and then upsized to a 51 mm Reamer. There was good Press-Fit with the 51 mm Reamer. I introduced the monoblock to immobility cup and found that it did not seat appropriately initially. It was removed and cleaned and soft tissue from the acetabulum was removed to allow it to seat more easily. It was then reintroduced and we were able to get a good press fit. Fluoroscopy was brought into verify appropriate anteversion and abduction angles. Anteversion appeared grossly appropriate based on the ellipse visualized on the AP pelvis which matched the standing AP pelvis preoperatively and the cup was noted to be tucked underneath the anterior wall. The abduction angle was slightly less than 40?. Being satisfied with the position of the cup I performed an obturator nerve block through the inferior portion of the acetabular exposure. All retractors were then removed Moving onto the femur a [place] hook was placed along the lateral femur and a Cobra retractor was placed over the greater trochanter. The lateral leaflet of the capsule was then released over to the nose of the greater trochanter. This was held medially and the hip was taken to 90? of external rotation and extended and adducted across the body. I noted that there was significant tightness at this time it formed a conjoined tendon release. This allowed more external rotation. I was able to elevate the femur and used a retractor over the greater trochanter to obtain an appropriate broaching position. The femur was opened up with a rongeur followed by a rasp. I then broached up to a size 5 broach. This was significantly larger than the templated broach size of a size 2, potentially due to external rotation at the time of her preoperative x-ray. I placed a standard offset neck and a +1.5 mm trial for a dual mobility. Fluoroscopically after this was reduced it was slightly long although the trial neck was noted to be partially disengaged from the broach. I then felt that the length which would be lost by appropriately reducing that gap in the neck would give us the appropriate length. The offset was appropriate. I therefore trialed the construct with maximum external rotation and a 45 degree drop test and noted good stability. I therefore returned to the broaching position, replaced all retractors, and placed a size 5 standard offset stem. A dual mobility head with a +1.5 mm 28 mm diameter inner head was constructed and impacted onto a clean dry trunnion. All retractors were removed and the hip was reduced. Fluoroscopy was obtained demonstrating appropriate leg length and offset. The hip was stable with maximum external rotation and a 45 degree drop test. The soft tissues were bathed in Betadine. The hip was closed using a combination of Vicryl Stratafix and Monocryl with Dermabond overlying and an Aquacel dressing. A mixture of ropivacaine epinephrine clonidine and Toradol was infiltrated throughout the soft tissues in the hip. The patient was awoken from anesthesia transferred off the [place] table and taken to the PACU Post-operative Plan for aftercare: Weightbearing as tolerated Anticipate discharge home either later today or tomorrow morning Aspirin 81 mg b.i.d. for VTE prophylaxis Follow up in 2 weeks in clinic for a wound check
[2022-12-08] MEDS: METOCLOPRAMIDE 10 MG/2 ML INJ IV (10:24)
[2022-12-08] MEDS: hydrOXYzine 50 MG/ML INJ 25 MG IM (10:24)
[2022-12-08] MEDS: ONDANSETRON 4 MG/2 ML INJ IV (10:24)
--- NOTE | 2022-12-08 11:08 | PC.NURSE ---
Day shift: On unit from PACU at approx 1100. VS WNL. RA 97%. PPP. Aquacel left hip is CDI. Opens eyes to voice but is sleepy at this time. No c/o pain or nausea. Call light in reach. Bed alarm on for safety. Will continue with post-op plan of care.
[2022-12-08] MEDS: LACTATED RINGERS 1,000 ML 100 ML IV (11:13)
--- NOTE | 2022-12-08 12:25 | PC.NURSE ---
Day shift: Pt awake now and answers questions ([phone]).
[2022-12-08] MEDS: IBUPROFEN 600 MG TABLET PO ×3 (12:30→22:06)
[2022-12-08] MEDS: ACETAMINOPHEN 325 MG TABLET 650 MG PO ×2 (12:30→16:52)
[2022-12-08] MEDS: ONDANSETRON 4 MG ODT PO (13:38)
[2022-12-08] MEDS: HYDROCODONE/ACET 5/325 TABLET 1 TAB PO ×3 (13:38→23:57)
--- NOTE | 2022-12-08 15:18 | OT.IPNOTE ---
Pt just finished seeing PT, very groggy and wanting to see OT tomorrow. Able to sent up caregiver training for pt's to come tomorrow at 9AMm for stair training for PT. Able to get her house set-up and prior level of care from pt. NO charge
--- NOTE | 2022-12-08 15:29 | PT.OIE ---
Current Diagnoses Unilateral primary osteoarthritis, left hip (12/08/22) Fusion of spine, lumbosacral region (12/08/22) Past Medical History (Last Updated 12/02/22 @ 10:17 by Elida Mcfarland RN) Abnormal Pap smear of cervix Allergies Anesthesia complication Anxiety Benign essential HTN Cervical dysplasia Cervical spine disease Chicken pox Chronic back pain Degenerative disc disease Depression Diabetes Difficult intravenous access GERD (gastroesophageal reflux disease) (~2009) History of COVID-19 HLD (hyperlipidemia) HTN (hypertension) Lumbar disc disease Measles Mumps BECCA on CPAP Osteoarthritis Pancreatitis (04/06/14) PTSD (post-traumatic stress disorder) Rosacea Sepsis (09/2014) Type 2 diabetes mellitus without complication, with no history of insulin use (~2020) Past Surgical History (Last Updated 12/02/22 @ 10:02 by Elida Mcfarland RN) Anesthesia History of 2 sections History of bilateral tubal ligation (1993) History of carpal tunnel release History of cervical biopsy History of colonoscopy with polypectomy History of conization of cervix History of lumbar fusion (07/29/09) History of lumbar fusion (2017) History of total left knee replacement (~12/07/20) Hx of appendectomy Hx of bilateral cataract extraction Hx of dilation and curettage Hx of laminectomy (07/2019) S/p bilateral blepharoplasty (2020) S/P cervical spinal fusion Visit Care Team Role Provider Type IVAN Paiz Referring Provider Non-Staff Specialty: Nursing Address: [address] [place] [address], [address] Email: Ayana Fernandez DO Primary Care Provider Physician Specialty: Family Practice Address: [address] [place] [address], [address], [place], [address] Email: [email or web address] Anderson Cortez DO Other Providers Physician Specialty: Anesthesiology Address: [address] [place] [address], [address] Email: Chino Vila MD Other Providers Physician Specialty: Anesthesiology Address: [address] [place] [address], [address] Email: Huang Brown MD Other Providers Physician Specialty: Anesthesiology Address: [id number] [place], [place] [address], [address] Phone: Fax: Email: [email or web address] [email or web address] Matthews MD Other Providers Physician Specialty: Anesthesiology Address: [address] [place] [address], [address] Phone: Fax: Email: Lc Soto MD Other Providers Physician Specialty: Anesthesiology Address: [address] [place] [address], [address] Email: Randell Adler MD Other Providers Physician Specialty: Anesthesiology Address: [address] [place] [address], [address] Email: Elida Cervantes MD Other Providers Physician Specialty: Anesthesiology Address: [address] [place] [address], [address] Email: Nia Allison MD Other Providers Physician Specialty: Anesthesiology Address: Phone: Fax: Email: [email or web address] Angelina Zimmerman MD Other Providers Physician Specialty: Anesthesiology Address: [address] [place] [address], [address] Email: Perry Funes MD Other Providers Physician Specialty: Anesthesiology Address: [address] [place] [address], [address] Email: Pj Hudson MD Attending Provider Physician Specialty: Orthopedics Orthopedic Surgery Address: [address] [place] [address], [address] Email: [email or web address]
--- NOTE | 2022-12-08 15:29 | PT.OPPOC ---
Physical, Occupational & Speech Therapy At [facility] Current Diagnoses Unilateral primary osteoarthritis, left hip (12/08/22) Fusion of spine, lumbosacral region (12/08/22) Visit Care Team Role Provider Type IVAN Paiz Referring Provider Non-Staff Specialty: Nursing Address: [address] [place] [address], [address] Email: Ayana Fernandez DO Primary Care Provider Physician Specialty: Family Practice Address: [address] [place] [address], [address], [address] Email: [email or web address] Anderson Cortez DO Other Providers Physician Specialty: Anesthesiology Address: [address] [place] [address], [address] Email: Chino Vila MD Other Providers Physician Specialty: Anesthesiology Address: [address] [place] [address], [address] Email: Hunag Brown MD Other Providers Physician Specialty: Anesthesiology Address: [address] [place] [address], [address] Phone: Fax: Email: [email or web address] [email or web address] Matthews MD Other Providers Physician Specialty: Anesthesiology Address: [address] [place] [address], [address] Phone: Fax: Email: Lc Soto MD Other Providers Physician Specialty: Anesthesiology Address: [address] [place] [address], [address] Email: Randell Adler MD Other Providers Physician Specialty: Anesthesiology Address: [address] [place] [address], [address] Email: Elida Cervantes MD Other Providers Physician Specialty: Anesthesiology Address: [address] [place] [address] Email: Nia Allison MD Other Providers Physician Specialty: Anesthesiology Address: Phone: Fax: Email: [email or web address] Angelina Zimmerman MD Other Providers Physician Specialty: Anesthesiology Address: [address] [place] [address] Email: Perry Funes MD Other Providers Physician Specialty: Anesthesiology Address: [address] [place] [address] Email: Pj Hudson MD Attending Provider Physician Specialty: Orthopedics Orthopedic Surgery Address: [address] [place] [id number] Email: [email or web address] Electronically Signed by: Pj Oleary, PT 12/08/22 1529 If you are in agreement with this Plan of Care, please return a signed and dated copy. I have reviewed this Plan of Care and certify that the skilled therapy services above are required to meet the patient?s needs. Physician Signature Date Printed Name and Credentials Clinical Instructor Signature Printed Name and Credentials
--- NOTE | 2022-12-08 17:41 | PC.NURSE ---
Day shift: Ate dinner w/ no c/o of nausea. OOB again to BR to void. TOlerated well with FWW.
[2022-12-08] MEDS: DOCUSATE 100 MG CAPSULE PO (20:37)
[2022-12-08] MEDS: GABAPENTIN 600 MG TABLET PO (20:37)
[2022-12-08] MEDS: ATORVASTATIN 20 MG TABLET 40 MG PO (20:37)
[2022-12-08] MEDS: ASPIRIN EC 81 MG TABLET PO (20:37)
[2022-12-08] MEDS: DULOXETINE 30 MG CAPSULE 60 MG PO (20:38)
[2022-12-08] MEDS: AMLODIPINE 5 MG TABLET 10 MG PO (20:38)
[2022-12-08] MEDS: METFORMIN HCL 500 MG TABLET PO (20:38)
[2022-12-08] MEDS: methocarbamoL 500 MG TABLET PO (20:38)
[2022-12-09] MEDS: PANTOPRAZOLE DR 20 MG TABLET PO (05:05)
[2022-12-09] MEDS: IBUPROFEN 600 MG TABLET PO ×2 (05:05→12:12)
[2022-12-09 05:09] VITALS: BP 122/56; PULSE 85; RESP 17; TEMP 36.5; O2SAT 95
[2022-12-09 05:45] LABS: Hematocrit 25.9 % (36-46)
--- NOTE | 2022-12-09 06:10 | PC.NURSE ---
Pt walked around the [facility] twice using walker with nurse. Pt tolerated well.
[2022-12-09 07:00] VITALS: BP 120/63; PULSE 77; RESP 18; TEMP 36.4; O2SAT 94
--- NOTE | 2022-12-09 07:12 | P.DS_ITS ---
History of Present Illness History of Present Illness Date Patient Seen: 12/09/22 Time Patient Seen: 07:12 Chief complaint: Left CHANTELL anterior *OPB* 12/08 Narrative: Operative Date/Time/Diagnoses Date of procedure: 12/08/22 Time of procedure: 08:40 Pre-op diagnosis: Left hip arthritis Post-op diagnosis: same Procedure & Clinicians Procedure: Left total hip arthroplasty using a monoblock to mobility articulation Same procedure as scheduled: Yes Surgeon: Pj Hudson Unmanned Equipment Operator: Holger Garsia Anesthesia Type: General and Local Operative Notes Prosthetic devices, grafts, tissues, transplants, or devices: Depuy Bimentum monoblock dual mobility cup 51 mm, Depuy Actis size 5 standard offset uncemented stem, 28 mm + 1.5 femoral head in 28/51 mm dual mobility head Estimated Blood Loss (mL): 250 Discharge Providers Provider Discharge Date: 12/09/22 Primary care physician: Ayana Fernandez DO Consults: 12/08/22 06:29 Consult to Anesthesiology Routine Comment: Consulting Provider: Anesthesiologist Reason for consultation: Regional block for post operative pain control 12/08/22 11:00 Consult to Discharge Planning Routine Comment: Consult to Occupational Therapy Evaluate & Treat Comment: Physician Instructions: Evaluate and treat Consult to Physical Therapy Evaluate & Treat Comment: Physician Instructions: post op CHANTELL protocol Discharge provider: Mary Kenyon PA-C Summary Hospital Course Discharge Diagnosis: Left hip osteoarthritis, s/p left total hip arthroplasty Hospital Course: Ms Vazquez's hospital course was unremarkable. On the morning of POD# 1, she was feeling well and wanted to go home. She was eating and voiding without difficulty and her pain was well controlled w/ oral medications. She was evaluated by PT and felt to be safe for discharge to home w/ her spouse. Exam Vital Signs (past 8 hours): - 12/09/22 05:09 Temperature 97.7 F Pulse Rate 85 Respiratory Rate 17 Blood Pressure 122/56 L Pulse Oximetry 95 Oxygen Flow Rate 0 Oxygen Delivery Method Room Air Oxygen Flow Rate 0 Narrative Exam Narrative: 5/5 strength in hip flexors, quadriceps, hamstrings, DF, PF, EHL on left. Sensation to light touch intact throughout LLE. Calf soft, compressible, nontender. Aquacel dressing CDI. H/H low d/t expected surgical blood loss; asymptomatic, no intervention needed at this time. Objective Labs 12/09/22 05:19 Labs: Laboratory Results - last 24 hr 12/09/22 05:19 Hgb 9.0 L Hct 25.9 L PFSH Medical History (Updated 12/02/22 @ 10:17 by Elida Mcfarland RN) History of COVID-19 Anesthesia complication Rosacea Allergies Degenerative disc disease Lumbar disc disease Chronic back pain Cervical spine disease Mumps Measles Chicken pox Abnormal Pap smear of cervix Benign essential HTN Type 2 diabetes mellitus without complication, with no history of insulin use (~2020) Difficult intravenous access Cervical dysplasia Osteoarthritis Sepsis (09/2014) BECCA on CPAP Anxiety Depression GERD (gastroesophageal reflux disease) (~2009) Pancreatitis (04/06/14) HLD (hyperlipidemia) HTN (hypertension) PTSD (post-traumatic stress disorder) Diabetes Surgical History (Updated 12/09/22 @ 07:20 by Mary Kenyon PA-C) History of total left knee replacement (~12/07/20) Anesthesia History of cervical biopsy History of carpal tunnel release History of conization of cervix S/p bilateral blepharoplasty (2020) Hx of bilateral cataract extraction History of bilateral tubal ligation (1993) Hx of dilation and curettage History of lumbar fusion (2017) Hx of laminectomy (07/2019) S/P cervical spinal fusion History of colonoscopy with polypectomy History of 2 sections History of lumbar fusion (07/29/09) Hx of appendectomy Family History Mother Diabetes mellitus History of heart disease Hypertension Hyperlipidemia Social History marital status: household members: spouse lives independently: Yes occupational status: previously employed Smoking Status: Former smoker alcohol intake: former substance use type: does not use Discharge Assessment & Plan Assessment and Plan Assessment: Left hip osteoarthritis, s/p left total hip arthroplasty Plan of Treatment: Discharge home after PT. PT still needs to do caregiver training, and pts spouse will not be here until about 1100. Pt under pain contract and last received oxycodone 15mg BID from IVAN Mcgraw, on 10/13/2022. I will rx oxycodone 5mg q4-6hr #40 and that she needs to discuss further narcotics w/ her pain provider. ASA BID for VTE prophylaxis, outpt PT, f/u in office in 2 weeks as scheduled. Discharge Plan Discharge Plan Patient Disposition: Home Discharge orders & Medications Discharge Orders: Discharge (Order); Ordered 12/09/22 Ordered By: Mary Kenyon Prescriptions: New oxycodone 5 mg tablet 5 mg PO Q4-6H PRN (Reason: pain (scale score 7-10)) Qty: 40 0RF Continued metformin 500 mg Tablet 500 mg PO BID Qty: 0 chlorthalidone 25 mg tablet 25 mg PO DAILY Qty: 90 3RF duloxetine [Cymbalta] 30 mg capsule,delayed release(DR/EC) See Rx Instructions PO DAILY Qty: 90 11RF Rx Instructions: 1 po in the am and 2 po in the pm, orally daily; rosuvastatin 20 mg tablet 20 mg PO DAILY losartan 100 mg tablet 100 mg PO DAILY methocarbamol 500 mg tablet 500 mg PO BEDTIME (DME) Pretty [employer] Sherrell 14 Day Sensor Kit See Rx Instructions .ROUTE .MEDSUPPLY Qty: 1 Rx Instructions: As directed meloxicam 7.5 mg tablet 15 mg PO DAILY Patient Comments: TAKE 1 TO 2 TABLETS BY MOUTH ONCE DAILY acetaminophen [Tylenol 8 Hour] 650 mg tablet extended release 1,300 mg PO Q8H PRN (Reason: Pain) Ozempic 1 mg/dose (4 mg/3 mL) pen injector 1 mg SUBCUT QWEEK Patient Comments: INJECT 1MG UNDER THE SKIN ONCE WEEKLY gabapentin 600 mg Tablet 600 mg PO BID amlodipine 10 mg Tablet 10 mg PO BEDTIME buspirone 15 mg Tablet 7.5 mg PO BID hydroxyzine pamoate 25 mg Capsule 25 mg PO Q6HR PRN (Reason: Nausea) Qty: 30 0RF esomeprazole magnesium [Nexium] 20 mg Capsule,Delayed Release(Dr/Ec) 20 mg PO DAILY Follow up/Referrals: Ayana Fernandez DO [Primary Care Provider] - Pj Hudson MD [Physician] - As previously scheduled (Follow up with Dr Hudson on 12/20/2022 @ 10:30 am at [facility] in [place].) Diet/Activity/Treatments Diet: Diet as Tolerated Activity: Weightbearing as tolerated to left leg. Anterior hip precautions. Cold/Heat Therapy: Ice to hip as needed for pain. Other treatments: Aspiring 81mg twice a day to prevent blood clots. Skin/Wound/Dressing Care Report to your healthcare provider any signs of infection, such as:: chills, fever, night sweats, unusual drainage and unusual redness Dressing: May shower. Leave dressing in place until follow up in office. No bathing or otherwise soaking incision. Call the office if the dressing becomes saturated inside. Visit Report/Discharge Packet Instructions: DI for Hip Replacement, DI for Prescription Opioid Use Stand Alone Forms: Patient Portal/API, Surgery Discharge Discharge Data Primary Care Provider: Ayana Fernandez Attending Provider: Pj Hudson VTE Deep Vein Thrombosis/Pulmonary Embolism Present on Admission: No
--- NOTE | 2022-12-09 08:27 | PT.IIE ---
Current Diagnoses Unilateral primary osteoarthritis, left hip (12/08/22) Fusion of spine, lumbosacral region (12/08/22) Presence of unspecified artificial knee joint (12/08/22) Surgery Performed Operation Date: 12/08/22 07:45 Actual Procedures p Total Hip Arthroplasty/Anterior Approach(Left) - Pj Hudson MD Surgical History (Last Updated 12/02/22 @ 10:02 by Elida Mcfarland RN) Anesthesia History of 2 sections History of bilateral tubal ligation (1993) History of carpal tunnel release History of cervical biopsy History of colonoscopy with polypectomy History of conization of cervix History of lumbar fusion (07/29/09) History of lumbar fusion (2017) History of total left knee replacement (~12/07/20) Hx of appendectomy Hx of bilateral cataract extraction Hx of dilation and curettage Hx of laminectomy (07/2019) S/p bilateral blepharoplasty (2020) S/P cervical spinal fusion Medical History (Last Updated 12/02/22 @ 10:17 by Elida Mcfarland RN) Abnormal Pap smear of cervix Allergies Anesthesia complication Anxiety Benign essential HTN Cervical dysplasia Cervical spine disease Chicken pox Chronic back pain Degenerative disc disease Depression Diabetes Difficult intravenous access GERD (gastroesophageal reflux disease) (~2009) History of COVID-19 HLD (hyperlipidemia) HTN (hypertension) Lumbar disc disease Measles Mumps BECCA on CPAP Osteoarthritis Pancreatitis (04/06/14) PTSD (post-traumatic stress disorder) Rosacea Sepsis (09/2014) Type 2 diabetes mellitus without complication, with no history of insulin use (~2020) Physical Therapy Inpatient Evaluation/Re-Eval M1 PT/OT-IP Prior Functional Status Start: 12/08/22 15:17 Freq: NEEDED Status: Active Protocol: Document 12/08/22 15:17 ED (Rec: 12/08/22 15:29 ED [id number]) Medical Review Prior Functional Status Medical History Reviewed Yes Communication able to communicate needs Mobility and Gait ambulated using SPC; limited by L hip pain Activities of Daily Living and IADL's did not require assistance during ADLs/IADLs Prior Functional Level (Other details) gardening Social History Household Members spouse Living Arrangements House Number of Floors (Floors) One Floor Number of Stairs To Enter/Railing? 10 ALE Bilateral railing Home Environment Walk in Shower,Built-In Shower Seat Home Equipment Front Wheel Walker,Straight Cane Employment Status Retired M2 PT-IP Current Condition Start: 12/08/22 15:17 Freq: NEEDED Status: Active Protocol: Document 12/08/22 15:17 ED (Rec: 12/08/22 15:29 ED [id number]) Physical Therapy Current Condition Current Condition Evaluation Date 12/08/22 Treatment Diagnosis L CHANTELL (anterior) Onset Date 12/08/22 M3 PT-IP Subjective Start: 12/08/22 15:17 Freq: NEEDED Status: Active Protocol: Document 12/08/22 15:17 ED (Rec: 12/08/22 15:29 ED [id number]) Subjective Physical Therapy Visit Type Type Initial Evaluation Visit Start Time 14:10 Visit Stop Time 15:00 Total Visit Minutes 50 Physical Therapy Visit Comments Patient Comments Pt states that she lives with her in [place]. They have 10 ALE house and no stairs once inside. She owns a SPC and FWW. States she has a shower chair. Notes that she was ambulating with a SPC prior to surgery d/t hip pain. Is unsure if she has home health PT or will be attending outpatient PT once she gets home. Patient Goals Be able to walk without pain Therapy Pain Assessment Pain When Pain Assessed At Rest Pain Present Pain Present Pain Reported Location Left Hip Intensity 4 Scale Used Numeric (0 - 10) Description Cramping,Pressure,Spasm,Tender Pain Behaviors Facial Grimacing Pain Management Techniques Apply Cold,Timing of Activity with Medications M4 PT-IP Mobility and Gait Start: 12/08/22 15:17 Freq: NEEDED Status: Active Protocol: Document 12/08/22 15:17 ED (Rec: 12/08/22 15:29 ED [id number]) PT-Bed Mobility Assessment Rolling Type of Rolling Roll to Left Level of Assist Minimal Assistance Supine to Sit Supine to Sit Moderate Assistance Sit to Supine Sit to Supine Moderate Assistance Scooting Scooting to Edge of Bed Contact Guard Assistance Scooting Up and Down in Bed Contact Guard Assistance PT-Transfer Assessment Sit to and From Stand Sit to and from Stand Contact Guard Assistance Equipment Transfer Assistive Device Front Wheeled Walker Orthotic/Prosthetic Devices or Brace: No Transfers Transfer Destination Bed Transfer Technique Stand Step Pivot Transfer Ability Level of Assist Contact Guard Assistance Comments Mobility Comments hip pain present with movment of hip but tolerable for her to continue mobilizing. CGA required. Pt does well using FWW; minimal cues needed for walker progression Gait Assessment Gait Gait Assistance Required: Standby Assistance Distance (Feet) 8 Able to Maintain Weight Bearing Status Yes During Gait Assistive Devices Assistive Device Front Wheeled Walker Gait Deviations General Gait Pattern Antalgic,Step-to Gait Factors Limiting Gait Function Factors Limiting Gait Function Decreased Activity Tolerance, Limited Range of Motion,Pain Comments Gait Comments Pt ambulated x8' using FWW demonstrating step to pattern limited by pain. PT educated patient on progressing gait to a step through pattern and that it's okay to use FWW for UE support to help decrease pressure through L LE during stance phase. PT-Balance Assessment Sitting Balance and Reactions Static Sitting Balance Ability Good Dynamic Sitting Balance Ability Fair Standing Balance and Reactions Static Standing Balance Ability Fair Dynamic Standing Balance Ability Fair Device Used FWW M5 PT-IP Objective Assessments Start: 12/08/22 15:17 Freq: NEEDED Status: Active Protocol: Document 12/08/22 15:17 ED (Rec: 12/08/22 15:29 ED [id number]) Orientation Orientation/Cognition Level of Alertness Alert Orientation Name,Date,Day of Week,Place, Situation Language Function Ability No Deficits Noted Safety Awareness Understands Safety Issues Memory Description No Deficits Noted Gross Range of Motion Upper Extremity ROM Assessment Within Functional Limits Lower Extremity ROM Assessment Left Impaired Impairments limited by pain in L hip and knee flexion Strength Upper Extremity Strength Assessment Within Functional Limits Lower Extremity Strength Assessment Left Impaired Coordination Assessment Gross Coordination Gross Coordination WNL M6 PT-IP Treatment Start: 12/08/22 15:17 Freq: NEEDED Status: Active Protocol: Document 12/08/22 15:17 ED (Rec: 12/08/22 15:29 ED [id number]) Physical Therapy Treatment Exercises Exercises Ankle Pumps,Gluteal Sets,Heel Slides Education Education Provided Precautions,Weight Bearing Status,Post-Op Packet,Safety M7 PT-IP Assessment and Plan Start: 12/08/22 15:17 Freq: NEEDED Status: Active Protocol: Document 12/08/22 15:17 ED (Rec: 12/08/22 15:29 ED [id number]) PT Summary Assessment and Plan Potential Rehabilitation Potential Good Status of Condition at Evaluation Evolving Summary Impairments Pain,ROM,Strength,Balance,Bed Mobility,Transfers,Gait, Activity Tolerance Progress Towards Goals Progressing Toward Goals Assessment Summary Pt s/p L CHANTELL (anterior approach) on 12/08/22. Pt required min - mod A for bed mobility for L LE management and UE assist to get into sitting position at EOB. Pt able to perform sit <> stands using FWW CGA. Pt ambulate x8' using FWW CGA demonstrating step to pattern. Pain did not increase significantly with mobility. Pt educated on post- op care and safety instructions. Instructed patient to use call light if needs to use restroom or go to /from bed. Did not perform stairs today but she has 10 ALE home with bilateral railings; will be able to help her at home. Informed nursing that she is effectively CGA - min A for mobility using FWW and gait belt. Pt in bedside chair with call light within reach at end of PT evaluation. Goals Bed Mobility Goal Standby Assistance Transfer Goal Standby Assistance Gait Goal Standby Assistance Gait Distance 100 feet Other Goals using FWW Days to Meet Goals 4 Frequency of Treatment Frequency Of Treatment Twice a Day Treatment Plan Physical Therapy Treatment Plan Bed Mobility Training,Transfer Training,Gait Training, Therapeutic Exercise,Balance Retraining,Post Op Education, Discharge Planning,Hot or Cold Pack,Neuromuscular Re-ed Other Recommendations and Next Treatment bed mobility training, Focus ambulate, stair negotiation Precautions Anterior Hip Precautions No Hip Extension,No Hip External Rotation Weight Bearing Status Weight Bearing Status Weight Bear as Tolerated Recommendations To Nursing Amount of Assist Needed 1 Person Assist Discharge Recommendations PT Discharge Recommendations Home with 12/09 Assist Available,Outpatient PT Transportation Needs at Discharge Private Vehicle
[2022-12-09] MEDS: METFORMIN HCL 500 MG TABLET PO (08:36)
[2022-12-09] MEDS: DOCUSATE 100 MG CAPSULE PO (08:36)
[2022-12-09] MEDS: CHLORTHALIDONE 25 MG TABLET PO (08:36)
[2022-12-09] MEDS: HYDROCODONE/ACET 5/325 TABLET 1 TAB PO ×2 (08:36→12:38)
[2022-12-09] MEDS: ASPIRIN EC 81 MG TABLET PO (08:36)
[2022-12-09 08:37] VITALS: BP 120/63
[2022-12-09] MEDS: LOSARTAN 50 MG TABLET 100 MG PO (08:37)
[2022-12-09] MEDS: GABAPENTIN 600 MG TABLET PO (08:37)
[2022-12-09] MEDS: DULOXETINE 30 MG CAPSULE PO (08:37)
--- NOTE | 2022-12-09 08:40 | CM.DANOTE ---
Initial DCP Assessment Note Reviewed EMR for pt's status and anticipated home d/c needs. Met with pt at bedside to introduce self and role. Pt found to be awake, alert, eating breakfast in her recliner. D/C orders in place for today. Payor: Kike Espinoza Attending: Pj Garcia Pt is a 67 year-old F admitted for total L-hip arthroplasty. She reports having had worsening L-hip pain/weakness, and has a hx of multiple spine fusions. Supportive spouse at home will assist her with 24 care needs and f/u Ortho appointments. Pt states that they have all the DME and supportive devices in place at home for her return. Spouse to transport. No further DCP needs indicated at this time. Discharge Planning/Care Management CM Discharge Assessment Start: 12/09/22 08:35 Freq: Status: Active Protocol: Document 12/09/22 08:35 DPL (Rec: 12/09/22 08:39 DPL [id number]) Discharge Planning Assessment Assigned Dynamite Packing Machine Operator JANI Capellan Advance Directives? No Advance Directives on File No History Provided By Patient,Medical Record Expected Length of Stay 1 Has Patient been admitted in last 30 No days? Prior Living Arrangements House Household Members spouse Type of transporation used prior to Drives own vehicle admit Independent with ADL's Yes Is patient alert and oriented? Yes Caregiver for Another No DME Already Rented / Owned Cane Patient/Family Preference OP PT Therapy Comment No anticipated d/c needs at this time. Pt to f/u with Ortho in a few weeks, OP PT will be ordered at that time. Barriers to Discharge No Discharge Plan Home Transportation Arrangement Spouse Referrals Initiated None needed Whiteboard Updated in Patient Room with No name and ext. # of Dynamite Packing Machine Operator Comment Pt set to d/c later this am. Encouraged her to reach out should she think of anything else she will need for home. Review Status In Process Please Provide Date Initial DC 12/09/22 Assessment Was Performed Pre-Anesthesia Assessment Start: 12/02/22 09:50 Freq: Status: Complete Protocol: Document 12/02/22 09:50 CAB (Rec: 12/02/22 10:19 CAB [id number]) Pre-Anesthesia Assessment PAC Comment Difficult IV start, I have deep veins Patient Information Reviewed Via Phone Assessment Assessment Completed With Patient Diagnostic Results BMP/CMP,CBC,EKG,Urinalysis Comment Labs/EKG @ Primary Care Provider Ayana Fernandez Comment PCP visit 11/09/22 in [facility] Medical Clearance Received Yes Seen Specialist in Last 12 Months Yes Specialist Seen Orthopedist Primary Language Maori Preferred Language Maori Card Table Attendant Required No Height 157.48 cm Weight 93.44 kg Body Mass Index (BMI) 37.6 Hearing Ability Normal Visual Assist Glasses Dentition Type Teeth, Natural Present Barriers to Learning None Hx Anesthesia Reactions Yes: Trouble coming out of anesthesia after 11 hour surgery for back PONV Hx Family Anesthesia Reaction No Hx Malignant Hyperthermia No Hx Blood Transfusions Yes: s/p anemia Hx Blood Transfusion Reaction No Anesthesia Review Requested No Local Area Network Administrator No alcohol intake former alcohol intake frequency holidays/special occasions only Smoking Status Former smoker how long ago did patient quit smoking Quit 1993 Substance Use Type does not use Pain Present Pain Reported Musculoskeletal Symptoms Abnormal Gait,Back Pain, Difficulty Walking,Joint Pain History of Falling (Recent or History of No ) Patient is completely paralyzed or No completely immobile Prosthesis or Orthotic Device Cane Mental Status Oriented to own ability Is patient on oxygen? No Does patient have COLEMAN/SOB No Hx Sleep Apnea Yes CPAP/BIPAP use prescribed and used routinely Will Bring CPAP/BIPAP DOS Yes Currently Taking a Beta Simone No Can You Climb a Flight of Stairs Without Yes SOB Hx Chest Pain No Hx SOB No Hx Syncope or Dizziness No Anti-Coagulant Therapy No Has a Manager Revenue No Cardiac Testing No Hx Pacemaker/ICD No Pacemaker Rep Required? No Cardiac Clearance Received Not Applicable Diet Type At Home Regular,Low Carb Dysphagia No Gastrointestinal Symptoms Reflux Bladder Pattern Incontinent, Stress Urinary Catheter Present No Hx Urinary Self Catheterization No Diabetes Yes: Continous glucose monitor HgbA1C 5.8 Date 10/27/22 Patient No Lactating No Presence of External or Internal Medical Yes: Thoracic/cervical Devices hardware, CPAP, glucose monitor, left shoulder Received a COVID vaccine? Yes Received all doses? Yes Marital Status Lives With spouse Current Living Arrangements House Number of Floors (Floors) One Floor Support System Spouse Does the Patient Have Assistance After Yes Surgery Patient Discharge Plan Description Return Home Comment Pt not advised on length of stay per surgeon Feels Safe in Current Environment Yes Been Physically Hurt or Threatened By a No Person in Current Environment Do you have thoughts of harming yourself None or others? Are you currently considering suicide? No Do you have a plan to hurt yourself or No Plan others? Do You Have Any Spiritual Beliefs That No May Affect Your HC Choices? Do You Have Any Cultural Practices That No May Affect Your HC Choices? Comment Buddhist Who Can We Speak to About Patient's Care Family, friends Identifying Code for Release of Patient Declines to issue Information Health Care Proxy/Next of Kin Huang () Health Care Proxy Emergency Contact Name Celena (daughter), Bhumi ( daughter) Emergency Contact Phone Number Celena: [phone] Bhumi: pt to update dos Advance Directives? Yes Advance Directives on File No Power of Waiter/Waitress Tourist Class No PAC Instructions Bring CPAP/BIPAP,Diabetes instructions,Do not shave/clip surgical site,Durable medical equipment,Medications to take /avoid,Nasal antibiotic,No ETOH/petroleum product on skin DOS,NPO,Pre-surgical wash, Sensory aids,Sturdy shoes/ comfortable clothes,Do not bring valuables and remove jewelry
--- NOTE | 2022-12-09 08:52 | PC.NURSE ---
Addendum entered by Daisy Kelsey R.N. 12/09/22 13:13: OKay by PT HL discontinued, Home instructions given w/understanding Pt escorted by staff via W/C to waiting vehicle in stable post op Original Note: Pt up in chair for meal/ Med w/[place] for discomfort Dsg to left hip CDI HL intact/patent Orderws for D/C later this morning. Call light w/in reach, Pt calls a appropriately for needs.
--- NOTE | 2022-12-09 09:09 | OT.IP.EVAL ---
Current Diagnoses Unilateral primary osteoarthritis, left hip (12/08/22) Fusion of spine, lumbosacral region (12/08/22) Presence of unspecified artificial knee joint (12/08/22) Surgery Performed Operation Date: 12/08/22 07:45 Actual Procedures p Total Hip Arthroplasty/Anterior Approach(Left) - Pj Hudson MD Past Medical History (Last Updated 12/02/22 @ 10:17 by Elida Mcfarland RN) Abnormal Pap smear of cervix Allergies Anesthesia complication Anxiety Benign essential HTN Cervical dysplasia Cervical spine disease Chicken pox Chronic back pain Degenerative disc disease Depression Diabetes Difficult intravenous access GERD (gastroesophageal reflux disease) (~2009) History of COVID-19 HLD (hyperlipidemia) HTN (hypertension) Lumbar disc disease Measles Mumps BECCA on CPAP Osteoarthritis Pancreatitis (04/06/14) PTSD (post-traumatic stress disorder) Rosacea Sepsis (09/2014) Type 2 diabetes mellitus without complication, with no history of insulin use (~2020) Surgical History (Last Updated 12/02/22 @ 10:02 by Elida Mcfarland RN) Anesthesia History of 2 sections History of bilateral tubal ligation (1993) History of carpal tunnel release History of cervical biopsy History of colonoscopy with polypectomy History of conization of cervix History of lumbar fusion (07/29/09) History of lumbar fusion (2017) History of total left knee replacement (~12/07/20) Hx of appendectomy Hx of bilateral cataract extraction Hx of dilation and curettage Hx of laminectomy (07/2019) S/p bilateral blepharoplasty (2020) S/P cervical spinal fusion Occupational Therapy Inpatient Evaluation/Re-Eval M1 PT/OT-IP Prior Functional Status Start: 12/09/22 09:26 Freq: NEEDED Status: Active Protocol: Document 12/09/22 08:25 [facility] (Rec: 12/09/22 10:18 [facility] [id number]) Medical Review Prior Functional Status Medical History Reviewed Yes Communication able to communicate needs Mobility and Gait ambulated using SPC; limited by L hip pain Activities of Daily Living and IADL's did not require assistance during ADLs/IADLs Prior Functional Level (Other details) gardening Social History Household Members spouse Living Arrangements House M2 OT-IP Current Condition Start: 12/09/22 09:26 Freq: Status: Active Protocol: Document 12/09/22 08:25 [facility] (Rec: 12/09/22 09:40 [facility] [id number]) Occupational Therapy Current Condition Current Condition Evaluation Date 12/09/22 Treatment Diagnosis S/P L CHANTELL Anterior approach Diagnosis Onset Date 12/08/22 Post Operative Precautions Anterior Hip Precautions No Hip Extension,No Hip External Rotation M3 OT- IP Subjective and Pain Start: 12/09/22 09:26 Freq: Status: Active Protocol: Document 12/09/22 08:25 [facility] (Rec: 12/09/22 09:40 [facility] [id number]) OT- Subjective Occupational Therapy Visit Type Type Initial Evaluation Visit Start Time 08:25 Visit Stop Time 09:09 Total Visit Minutes 44 Occupational Therapy Visit Comments Patient Comments Pt wanting to get up to shower . Patient/Caregiver Goals To go home. OT Pain Assessment Pain When Pain Assessed At Rest Pain Present Pain Present Pain Reported Location Left Hip Intensity 5 Scale Used Numeric (0 - 10) M4 OT- IP ADL's Start: 12/09/22 09:26 Freq: Status: Active Protocol: Document 12/09/22 08:25 [facility] (Rec: 12/09/22 09:40 [facility] [id number]) OT [id number] General Evaluation Self-Feeding Ability Independent OT ADL-Grooming General Evaluation Grooming Ability Independent Areas Needing Assistance Retrieving/Set-up of Grooming Items OT ADL-Oral Care General Eval Oral Care Ability Independent Areas of Assistance Retrieving/Set-Up of Items OT ADL-Dressing General Eval Upper Body Dressing Ability Independent Lower Body Dressing Ability Moderate Assistance Comments OT Dressing Comments Assist to help thread her legs in to her pants and brief. Educated pt to sit to malachi/ doff items as safer at this time. Pt able to practice use of the [employer] school principal, but insists her can help her. OT ADL-Toileting General Evaluation Toileting Ability Independent OT ADL-Bathing Bathing Type Bathing Type Shower General Evaluation Bathing Ability Moderate Assistance Areas Needing Assistance Wash/Dry Back,Wash/Dry Lower Extremities Comments OT Bathing Comments Assist to help wash her back and dry her legs. Pt able to stand for most of the shower and needing the grab bars to assist for her balance. Pt states her to assist and has a shower chair at home . M5 OT- IP IADL's Start: 12/09/22 09:26 Freq: Status: Active Protocol: Document 12/09/22 08:25 [facility] (Rec: 12/09/22 09:40 [facility] [id number]) OT-Instrumental Activities of Daily Living Deficits IADL Deficits Identified Deficits Home Safety Awareness Home Safety Comments Pt needing cues to slow down M6 OT- IP Functional Cognition Start: 12/09/22 09:26 Freq: Status: Active Protocol: Document 12/09/22 08:25 [facility] (Rec: 12/09/22 10:18 [facility] [id number]) Cognitive Factors Limiting Selfcare Function Cognitive Ability Level of Alertness Alert Patient Orientation Name,Age,Birthday,Month,Date, Year,Day of Week,Place, Situation Attention Span Ability Capable of Focused Attention, Capable of Sustained Attention Ability to Follow Commands Able to Follow One Step Commands Safety Awareness Decreased Ability to Apply Precautions,Underestimates Need for Assistance Cognitive Comments Cognitive Assessment Comments Pt easily distracted and needing MAX vc to follow her hip precautions and for FWW safety. OT- Vision and Hearing OT- Hearing Assessment OT- Hearing Assessment WFL OT- Vision Assessment Visual Acuity Glasses For Reading M7 OT- IP Mobility and Balance Start: 12/09/22 09:26 Freq: Status: Active Protocol: Document 12/09/22 08:25 [facility] (Rec: 12/09/22 10:18 [facility] [id number]) OT-Transfer Assessment Sit to and From Stand Sit to and from Stand Standby Assistance Transfers Transfer Ability Standby Assistance,Contact Guard Assistance Technique Transfer Destination Bed,Shower Stall,Toilet Transfer Technique Stand Step Pivot Devices Transfer Assistive Devices Gait Belt,Front Wheeled Walker Comments Mobility Comments CGA to stand from lower surfaces and assist to step over the threshold of the shower with FWW. OT- Balance Assessment Sitting Balance and Reactions Static Sitting Balance Ability Normal Dynamic Sitting Balance Ability Good Standing Balance and Reactions Static Standing Balance Ability Good Dynamic Standing Balance Ability Fair M8 OT- IP Objective Assessments Start: 12/09/22 09:26 Freq: Status: Active Protocol: Document 12/09/22 08:25 [facility] (Rec: 12/09/22 10:18 [facility] [id number]) OT Gross Range of Motion Upper Extremity Range of Motion Assessment Within Functional Limits OT Strength Upper Extremity Strength Assessment Within Functional Limits M9 OT- IP Assessment and Plan Start: 12/09/22 09:26 Freq: Status: Active Protocol: Document 12/09/22 08:25 [facility] (Rec: 12/09/22 10:18 [facility] [id number]) OT Summary Assessment and Plan Potential Rehabilitation Potential Good Analytic Complexity at Evaluation Low Summary OT Impairments Pain,Balance,Functional Mobility,Dressing,Bathing, Toilet Transfers,Shower Transfers Progress Towards Goals Progressing Toward Goals Assessment Summary Pt doing well and main barriers are steps, needing reminders to incorporate her hip precautions, pt is a bit impulsive and needing cues to slow down. Pt to go home with her when medically stable and have outpt PT. Goals Dressing Goal Independent,Blending Technician Toileting Goal Independent Bathing Goal Independent Toilet Transfer Goal Independent Shower Transfer Goal Independent Days to Meet Goals 5 Frequency of Treatment Frequency Of Treatment Once a Day Treatment Plan OT Treatment Plan ADL Training,Functional Mobility,Patient/Family Education,Discharge Planning Discharge Recommendations OT Discharge Recommendations Home with Assistance Transportation Needs at Discharge Private Vehicle
--- NOTE | 2022-12-09 11:04 | PT.IPTN ---
Current Diagnoses Unilateral primary osteoarthritis, left hip (12/08/22) Fusion of spine, lumbosacral region (12/08/22) Presence of unspecified artificial knee joint (12/08/22) Surgery Performed Operation Date: 12/08/22 07:45 Actual Procedures p Total Hip Arthroplasty/Anterior Approach(Left) - Pj Hudson MD Physical Therapy Treatment Note M2 PT-IP Current Condition Start: 12/08/22 15:17 Freq: NEEDED Status: Active Protocol: Document 12/08/22 15:17 ED (Rec: 12/08/22 15:29 ED [id number]) Physical Therapy Current Condition Current Condition Evaluation Date 12/08/22 Treatment Diagnosis L CHANTELL (anterior) Onset Date 12/08/22 M3 PT-IP Subjective Start: 12/08/22 15:17 Freq: NEEDED Status: Active Protocol: Document 12/09/22 11:04 AB (Rec: 12/09/22 12:50 AB [id number]) Subjective Physical Therapy Visit Type Type Treatment Note Visit Start Time 11:04 Visit Stop Time 12:00 Total Visit Minutes 56 Number of WIRE DROPPER Visits 0 Therapy Pain Assessment Pain When Pain Assessed During Mobility Pain Present Pain Present Pain Reported Location Left Hip Intensity 6 Scale Used Numeric (0 - 10) Pain Management Techniques Apply Cold,Modification of Treatment,Re-positioning, Timing of Activity with Medications M4 PT-IP Mobility and Gait Start: 12/08/22 15:17 Freq: NEEDED Status: Active Protocol: Document 12/09/22 11:04 AB (Rec: 12/09/22 12:50 AB [id number]) PT-Bed Mobility Assessment Supine to Sit Supine to Sit Maximum Assistance,1 Person Assistance Sit to Supine Sit to Supine Moderate Assistance,1 Person Assistance PT-Transfer Assessment Sit to and From Stand Sit to and from Stand Contact Guard Assistance,1 Person Assistance,Use of Upper Extremities Equipment Transfer Assistive Device Gait Belt,Front Wheeled Walker Orthotic/Prosthetic Devices or Brace: No Transfers Transfer Destination Bed,Chair Transfer Technique ambulated Transfer Ability Level of Assist Standby Assistance,Contact Guard Assistance,1 Person Assistance,Use of Upper Extremities Comments Mobility Comments pt supine in bed. spouse in room for caregiver training. pt unable to recall her hip precautions. educated pt and spouse regarding L hip anterior precautions. pt completed supine to sit max A and max cues. pt stated that she usually gets in/out on the R side of the bed. asked pt and spouse if pt can change to the L side of the bed. spouse said yes. pt also stated that they have a high bed and she has to go up/ down a step stool. educated spouse on how to use safety belt and how to assist pt. spouse was able to put safety belt on. assisted pt with sit to stand and ambulated pt to the L side of the bed using FWW sBA to CGA. pt completed up/down step stool CGA. completed sit to supine mod A with LE elevation . spouse assisted pt. pt completed supine to sit max A. completed sit to stand CGA and able to descent step stool CGA. pt ambulated towards the stairs using FWW SBA to CGA ~ 125 ft. cues for hip precautions needed. pt completed up/down steps B rails CGA. spouse was able to assist pt. pt stated that she is tired and does not to do further stair climbing but stated that she can walk back to the room and completed using FWW. pt sat on the chair . positioned on the chair. call light and table within reach. Gait Assessment Gait Gait Assistance Required: Standby Assistance,Contact Guard Assist Distance (Feet) 125 Able to Maintain Weight Bearing Status Yes During Gait Assistive Devices Assistive Device Gait Belt,Front Wheeled Walker Orthotic/Prosthetic Devices or Brace: No Gait Deviations General Gait Pattern Antalgic,Decreased Stride Length,Decreased Feet Clearance Factors Limiting Gait Function Factors Limiting Gait Function Decreased Activity Tolerance, Decreased Strength,Limited Range of Motion,Pain,Poor Balance,Poor Safety Awareness Stair Climbing Assessment Evaluation Level of Assist On Stairs Contact Guard Assistance Devices Stair Climbing Assistive Devices Left Railing,Right Railing Technique/Endurance Stair Climbing Direction Ascend and Descend Stair Climbing Technique Step to Step Number of Steps Climbed 3 Stair Climbing Set # Repetitions (reps) 1 M5 PT-IP Objective Assessments Start: 12/08/22 15:17 Freq: NEEDED Status: Active Protocol: Document 12/08/22 15:17 ED (Rec: 12/08/22 15:29 ED [id number]) Orientation Orientation/Cognition Level of Alertness Alert Orientation Name,Date,Day of Week,Place, Situation Language Function Ability No Deficits Noted Safety Awareness Understands Safety Issues Memory Description No Deficits Noted Gross Range of Motion Upper Extremity ROM Assessment Within Functional Limits Lower Extremity ROM Assessment Left Impaired Impairments limited by pain in L hip and knee flexion Strength Upper Extremity Strength Assessment Within Functional Limits Lower Extremity Strength Assessment Left Impaired Coordination Assessment Gross Coordination Gross Coordination WNL M6 PT-IP Treatment Start: 12/08/22 15:17 Freq: NEEDED Status: Active Protocol: Document 12/09/22 11:04 AB (Rec: 12/09/22 12:50 AB [id number]) Physical Therapy Treatment Education Education Provided Precautions,Safety M7 PT-IP Assessment and Plan Start: 12/08/22 15:17 Freq: NEEDED Status: Active Protocol: Document 12/09/22 11:04 AB (Rec: 12/09/22 12:50 AB [id number]) PT Summary Assessment and Plan Potential Rehabilitation Potential Good Summary Impairments Pain,ROM,Strength,Balance, Coordination,Sensation,Tone, Cognition,Bed Mobility, Transfers,Gait,Activity Tolerance Progress Towards Goals Slow Progress due to Pain Assessment Summary Caregiver training completed and spouse was able to assist pt. pt plans to go home today. Goals Bed Mobility Goal Independent Transfer Goal Independent,Front Wheeled Walker Gait Goal Independent,Front Wheel Walker Gait Distance 200 Other Goals up/down 1 step stool using FWW up/down 10 steps using B rails SBA Days to Meet Goals 3 Frequency of Treatment Frequency Of Treatment Twice a Day Treatment Plan Physical Therapy Treatment Plan Bed Mobility Training,Transfer Training,Gait Training, Therapeutic Exercise,Balance Retraining,Post Op Education, Discharge Planning,Hot or Cold Pack,Neuromuscular Re-ed Precautions Anterior Hip Precautions No Hip Extension,No Hip External Rotation Weight Bearing Status Weight Bearing Status Weight Bear as Tolerated Recommendations To Nursing Amount of Assist Needed 1 Person Assist Discharge Recommendations PT Discharge Recommendations Home with Assistance, Outpatient PT Transportation Needs at Discharge Private Vehicle
== END 2022-12-09 13:05 | disposition home or self-care (01) ==
LOC: OR 06:34 → AC 06:34
PROVIDERS: PCP Family Medicine; Referring Provider Nurse Practitioner Family; Visit Provider Orthopaedic Surgery Adult Reconstructive Orthopaedic Surgery
PROC: (CPT 27130; principal; 2022-12-08 07:45)
DX: M16.12 Unilateral primary osteoarthritis, left hip (principal)
CPT/HCPCS: 27130; 36415; 73502; 76000; 82962; 85014; 85018; 94660; 97161; 97165; 97530; 97535; C1776; J0330; J0690; J1100; J1170; J2250; J2405; J2704; J2765; J3010; J3410

== ENCOUNTER → 2023-01-02 14:55 | Outpatient (CLI) | payer OTHER, SELFPAY ==
[2022-12-08 11:07] VITALS: BMI 37.6
[2023-01-02 15:33] LABS: Add Manual Diff / Slide Review NO; Basophils Absolute Auto 100 /uL (0-100); Basophils Percent Auto 1.1 % (0-2); Eosinophils Absolute Auto 700 /uL (0-450); Eosinophils Percent Auto 8.1 % (2-4); Hemoglobin 10.9 g/dL (12.0-16.0); Lymphocytes Absolute Auto 3000 /uL (1100-4500); Lymphocytes Percent Auto 32.8 % (25-40); Mean Corpuscular Volume 85.3 fL (80-100); Monocytes Absolute Auto 700 /uL (0-900); Monocytes Percent Auto 7.5 % (3-14); Neutrophils Absolute Auto 4600 /uL (1500-7000); Neutrophils Percent Auto 50.5 % (50-75); Platelet Count 414 X10^3/uL (150-400); Red Blood Cell Count 3.75 X10^6/uL (4.0-5.2); Red Cell Distribution Width 13.3 % (11.6-14.8); White Blood Cell Count 9.1 X10^3/uL (4.5-11.0)
[2023-01-02 15:48] LABS: Hemoglobin A1C% w Est Avg Glu 5.5 % (4.0-6.0)
[2023-01-02 15:49] LABS: HEMOLYSIS < 15 (0-50)
[2023-01-02 15:50] LABS: Alanine Aminotransferase 34 IU/L (<35); Albumin 4.6 g/dL (3.5-5.0); Albumin Globulin Ratio 1.6 (1.0-2.8); Alkaline Phosphatase 70 U/L (38-126); Aspartate Aminotransferase 27 IU/L (14-36); BUN Creatinine Ratio 17.7 (6-22); Bilirubin Total 0.6 mg/dL (0.2-1.3); Blood Urea Nitrogen 17 mg/dL (7-17); Calcium 10.3 mg/dL (8.4-10.2); Carbon Dioxide 28 mmol/L (22-32); Chloride 100 mmol/L (98-107); Cholesterol 164 mg/dL (140-199); Estimated Glomerular Filt Rate > 60 mL/min (>60); Globulin 2.8 g/dL (1.7-4.1); Glucose 90 mg/dL (80-110); HDL Cholesterol 46 mg/dL (40-60); HEMOLYSIS < 15 (0-50); LDL Cholesterol Calculated 73 mg/dL (<100); Potassium 4.2 mmol/L (3.4-5.1); Sodium 137 mmol/L (137-145); Total Protein 7.4 g/dL (6.3-8.2); Triglycerides 224 mg/dL (35-150)
[2023-01-02 16:00] LABS: Total Iron Binding Capacity 368 ug/dL (265-497); Transferrin 286 mg/dL (206-381)
[2023-01-02 16:21] LABS: TSH w/ Reflex to FT4 0.13 uIU/mL (0.47-4.68)
[2023-01-02 16:25] LABS: Ferritin 31 ng/mL (11-264)
[2023-01-02 17:06] LABS: Free T4, Direct Thyroxine 1.12 ng/dL (0.78-2.19)
[2023-01-02 20:45] LABS: Iron 60 ug/dL (37-170); Percent Iron Saturation 16 % (15-50)
== END ==
PROVIDERS: PCP Family Medicine; Referring Provider Family Medicine; Visit Provider Family Medicine
DX: E11.9 Type 2 diabetes mellitus without complications (principal); I10 Essential (primary) hypertension; E78.5 Hyperlipidemia, unspecified; G25.81 Restless legs syndrome
CPT/HCPCS: 36415; 80053; 80061; 82728; 83036; 83540; 83550; 84439; 84443; 85025

== ENCOUNTER → 2023-04-18 09:47 | Outpatient (CLI) | payer OTHER, SELFPAY ==
[2022-12-08 11:07] VITALS: BMI 37.6
[2023-04-18 11:01] LABS: Hemoglobin A1C% w Est Avg Glu 6.2 % (4.0-6.0)
== END ==
PROVIDERS: PCP Family Medicine; Referring Provider Family Medicine; Visit Provider Family Medicine
DX: E11.9 Type 2 diabetes mellitus without complications (principal)
CPT/HCPCS: 36415; 83036

== ENCOUNTER 2023-05-16 07:55 | Day surgery (SDC) | payer OTHER, SELFPAY ==
[2022-12-08 11:07] VITALS: BMI 37.6
--- NOTE | 2023-05-16 | PATH_ITS ---
[facility] Accession Number: [id number] No. of containers..02 Tissue . 01 Material submitted: . PART A: esophagus - ESOPHAGUS PART B: colon - DESCENDING COLON . 01 Diagnosis: Part A: ESOPHAGUS: Squamous mucosa with no diagnostic alterations. Eosinophils are not increased. . Part B: DESCENDING COLON: Tubular adenoma. STO 05/19/20231716 Local . 01 Electronically signed: . Grayson Stevens MD, Pathologist NPI- [id number] . 01 Gross description: . Part A: ESOPHAGUS: Received in formalin are 2 fragment(s) of javed, soft tissue measuring 0.2 x 0.2 x 0.1 cm to 0.3 x 0.3 x 0.2 cm submitted entirely in 1 cassette(s) . Part B: DESCENDING COLON: Received in formalin is 1 fragment(s) of javed, soft tissue measuring 0.5 x 0.5 x 0.4 cm submitted entirely in 1 cassette(s) /JENNIFER 05/19/20231716 Local . 01 Pathologist provided ICD-10: D12.4, K21.9 . 01 CPT . 687947, 434891 Specimen Comment: A courtesy copy of this report has been sent to [phone] Performed at: 01 [facility] [address] [place] [address] [address], [place], [place] [id number] MD Grayson Stevens MD Phone: [phone]
[2023-05-16] MEDS: LACTATED RINGERS 1,000 ML 42 ML IV (08:20)
--- NOTE | 2023-05-16 08:29 | P.HP_ITS ---
History of Present Illness History of Present Illness Date Patient Seen: 05/16/23 Time Patient Seen: 08:30 Chief complaint: EGD & Colonoscopy w/poss bx's Narrative: 67-year-old woman here for screening colonoscopy and diagnostic esophagogastroduodenoscopy. Long history of GERD now with esophageal dysphagia to solid food and pills times. No family history of intestinal malignancy. [facility] Medical History History of COVID-19 Anesthesia complication Rosacea Allergies Degenerative disc disease Lumbar disc disease Chronic back pain Cervical spine disease Mumps Measles Chicken pox Abnormal Pap smear of cervix Benign essential HTN Type 2 diabetes mellitus without complication, with no history of insulin use (~2020) Difficult intravenous access Cervical dysplasia Osteoarthritis Sepsis (09/2014) BECCA on CPAP Anxiety Depression GERD (gastroesophageal reflux disease) (~2009) Pancreatitis (04/06/14) HLD (hyperlipidemia) HTN (hypertension) PTSD (post-traumatic stress disorder) Diabetes Surgical History History of total left knee replacement (~12/07/20) Anesthesia History of cervical biopsy History of carpal tunnel release History of conization of cervix S/p bilateral blepharoplasty (2020) Hx of bilateral cataract extraction History of bilateral tubal ligation (1993) Hx of dilation and curettage History of lumbar fusion (2017) Hx of laminectomy (07/2019) S/P cervical spinal fusion History of colonoscopy with polypectomy History of 2 sections History of lumbar fusion (07/29/09) Hx of appendectomy Family History Mother Diabetes mellitus History of heart disease Hypertension Hyperlipidemia Social History marital status: household members: spouse lives independently: Yes occupational status: previously employed Smoking Status: Former smoker alcohol intake: former substance use type: does not use Meds Home Medications and Allergies Home Medications Medication Instructions Recorded Confirmed Type metformin 500 mg tablet 500 mg PO BID ##0 08/12/09 05/16/23 History amlodipine 10 mg tablet 10 mg PO BEDTIME 12/04/20 05/16/23 History buspirone 15 mg tablet 7.5 mg PO BID 12/04/20 05/16/23 History acetaminophen 650 mg 1,300 mg PO Q8H PRN Pain 07/01/22 05/16/23 History tablet,extended release (Tylenol 8 Hour) flash glucose sensor (FreeStyle #1 ea 07/01/22 02/01/23 History Sherrell 14 Day Sensor kit) losartan 100 mg tablet 100 mg PO DAILY 07/01/22 05/16/23 History meloxicam 7.5 mg tablet 15 mg PO DAILY 07/01/22 05/16/23 History methocarbamol 500 mg tablet 500 mg PO BEDTIME 07/01/22 05/16/23 History rosuvastatin 20 mg tablet 20 mg PO DAILY 07/01/22 05/16/23 History chlorthalidone 25 mg tablet 25 mg PO DAILY blood pressure #90 07/04/22 05/16/23 Rx tabs duloxetine 30 mg capsule,delayed See Rx Instructions PO DAILY #90 11/09/22 05/16/23 Rx release (Cymbalta) caps esomeprazole magnesium 20 mg 20 mg PO DAILY 12/02/22 05/16/23 History capsule,delayed release (Nexium) gabapentin 300 mg capsule 300 mg PO BID #450 caps 01/30/23 05/16/23 Rx semaglutide 1 mg/dose (4 mg/3 mL) 1 mg (0.75 mL) SUBCUT QWEEK #9 mL 01/30/23 05/16/23 Rx subcutaneous pen injector (Ozempic) sodium,potassium,mag sulfates 17.5 See Rx Instructions PO .COMPLEX 04/06/23 Rx gram-3.13 gram-1.6 gram oral soln #354 mL (Suprep Bowel Prep Kit) Allergies Allergy/AdvReac Type Severity Reaction Status Date / Time adhesive tape Allergy Severe Rash, Verified 05/16/23 08:04 itching oxycodone Allergy Severe ITCHING, Verified 05/16/23 08:04 nausea/vomiting hydromorphone AdvReac Severe Nausea/vomi Verified 05/16/23 08:04 ting morphine AdvReac Mild ANXIETY, Verified 05/16/23 08:04 nausea, vomiting Sulfa (Sulfonamide AdvReac Unknown Gastrointestinal Verified 05/16/23 08:04 Antibiotics) Upset All narcotics AdvReac Severe Nausea, Uncoded 03/26/24 08:04 vomiting Exam Narrative Exam Narrative: General adult woman alert oriented no acute distress Chest nonlabored respiration Extremities warm well perfused Assessment & Plan Assessment & Plan narrative: 67-year-old woman here for diagnostic esophagogastroduodenoscopy with possible biopsy and dilation and colonoscopy. Technical details were discussed. Risks, benefits, alternatives explained. Risks including but not limited to myocardial infarction, aspiration, bleeding, pain, missed lesion, incomplete examination, need for further radiographic studies, colonic perforation, and need for major abdominal surgery were discussed. All questions were answered to their satisfaction, and they are in agreement with this plan.
[2023-05-16 09:10] VITALS: BP 103/51; PULSE 78; RESP 18; TEMP 37.2; O2SAT 95
--- NOTE | 2023-05-16 09:14 | PM.OP.EC ---
Operative Date/Time/Diagnoses Date of procedure: 05/16/23 Time of procedure: 09:14 Pre-op diagnosis: Esophageal dysphagia Procedure & Clinicians Study performed: Diagnostic Esophagogastroduodenoscopy and screening colonoscopy Same procedure as scheduled: Yes Indications: Chronic GERD. New esophageal dysphagia Colorectal screening Surgeon: Dvaid Mckenna Procedure Notes Procedure in detail: The history and physical was performed/updated and the patient is ASA class is 3. The procedure was discussed in detail with the patient. Potential risks complications including infection, bleeding, missed diagnosis, perforation, need for surgery, and were explained. Their questions were answered and informed consent was obtained. Patient placed in left lateral decubitus position. Time out was performed. Procedural sedation was administered by Anesthesia. A bite block was placed. the scope was inserted into the mouth and advanced through the esophagus and into the stomach. the pylorus was intubated and the duodenum was examined to the 2nd portion.. The scope was retroflexed within the stomach. The stomach was then decompressed and scope pulled back to the GE junction. The scope was then removed Examination began with a thorough inspection of the perianal area there was no evidence of fissures, fistulae, external hemorrhoids or cutaneous malignancy. The colonoscopy scope was then placed into the anal canal and was advanced to the cecum, which was identified by the ileocecal valve, the appendiceal orifice and the confluence of the taenia. The scope was then slowly withdrawn examining colon thoroughly in all directions, irrigating it of any residual stool. FINDINGS -Unremarkable upper endoscopy. No gastritis esophagitis or peptic ulcer disease. -normal GE junction. -random biopsies of esophagus performed with forceps -5 mm polyp of descending colon removed with cold snare The patient tolerated the procedure well. They will be discharged once criteria are met. The prep was of fair quality. The withdrawl time was 6 minutes. Specimen(s): other (Descending colon polyp) Impression: Colonic polyp x1 Post-procedure Recommendations: Reflux diet Plan for aftercare: -Repeat colonoscopy follow up is dependent on pathology findings -await biopsy pathology from esophagus Disposition: same day surgery
[2023-05-16 09:15] VITALS: BP 107/64; PULSE 79; RESP 21; TEMP 37.2; O2SAT 95
[2023-05-16 09:26] VITALS: BP 114/51; PULSE 71; RESP 16; TEMP 37.1; O2SAT 97
== END 2023-05-16 09:45 | disposition home or self-care (01) ==
PROVIDERS: PCP Family Medicine; Referring Provider Surgery; Visit Provider Surgery
PROC: 0DJ08ZZ Inspection of Upper Intestinal Tract, Via Natural or Artificial Opening Endoscopic (ICD-10-PCS; CPT 45385; principal; 2023-05-16 08:30)
PROC: 0DJD8ZZ Inspection of Lower Intestinal Tract, Via Natural or Artificial Opening Endoscopic (ICD-10-PCS; CPT 45378; 2023-05-16 08:30)
DX: Z12.11 Encounter for screening for malignant neoplasm of colon (principal); R13.10 Dysphagia, unspecified; D12.4 Benign neoplasm of descending colon
CPT/HCPCS: 45385; 43239; J2704; J3010

== ENCOUNTER → 2023-05-18 14:12 | Outpatient (CLI) | payer OTHER, SELFPAY ==
[2022-12-08 11:07] VITALS: BMI 37.6
[2023-05-18 14:46] LABS: Add Manual Diff / Slide Review NO; Basophils Absolute Auto 100 /uL (0-100); Basophils Percent Auto 1.3 % (0-2); Eosinophils Absolute Auto 1200 /uL (0-450); Eosinophils Percent Auto 12.2 % (2-4); Hematocrit 34.8 % (36-46); Hemoglobin 11.9 g/dL (12.0-16.0); Lymphocytes Absolute Auto 3400 /uL (1100-4500); Lymphocytes Percent Auto 35.6 % (25-40); Mean Corpuscular HGB Conc 34.1 % (30-36); Mean Corpuscular Hemoglobin 28.2 PG (26-34); Mean Corpuscular Volume 82.5 fL (80-100); Monocytes Absolute Auto 600 /uL (0-900); Monocytes Percent Auto 5.8 % (3-14); Neutrophils Absolute Auto 4300 /uL (1500-7000); Neutrophils Percent Auto 45.1 % (50-75); Platelet Count 325 X10^3/uL (150-400); Red Blood Cell Count 4.22 X10^6/uL (4.0-5.2); Red Cell Distribution Width 14.7 % (11.6-14.8); White Blood Cell Count 9.5 X10^3/uL (4.5-11.0)
[2023-05-18 15:17] LABS: Alanine Aminotransferase 41 IU/L (<35); Albumin 4.4 g/dL (3.5-5.0); Albumin Globulin Ratio 1.5 (1.0-2.8); Alkaline Phosphatase 58 U/L (38-126); Aspartate Aminotransferase 30 IU/L (14-36); BUN Creatinine Ratio 23.7 (6-22); Bilirubin Total 0.6 mg/dL (0.2-1.3); Blood Urea Nitrogen 23 mg/dL (7-17); Carbon Dioxide 30 mmol/L (22-32); Chloride 102 mmol/L (98-107); Estimated Glomerular Filt Rate > 60 mL/min (>60); Globulin 2.9 g/dL (1.7-4.1); Glucose 105 mg/dL (80-110); HEMOLYSIS < 15 (0-50); Potassium 3.4 mmol/L (3.4-5.1); Sodium 138 mmol/L (137-145); Total Protein 7.3 g/dL (6.3-8.2)
[2023-05-18 15:34] LABS: Vitamin D 25 Hydroxy (D3) 41.3 ng/mL (30.0-100.0)
[2023-05-18 15:47] LABS: TSH w/ Reflex to FT4 1.79 uIU/mL (0.47-4.68)
== END ==
PROVIDERS: PCP Family Medicine; Referring Provider Physician Assistant; Visit Provider Physician Assistant
DX: R53.83 Other fatigue (principal)
CPT/HCPCS: 36415; 80053; 82306; 84443; 85025

== ENCOUNTER → 2023-11-02 10:39 | Outpatient (CLI) | payer OTHER, SELFPAY ==
[2022-12-08 11:07] VITALS: BMI 37.6
--- NOTE | 2023-11-02 10:40 | DI.MRI.S_ITS ---
PROCEDURE: MR LUMBAR SPINE WO CON INDICATIONS: LUMBAR RADICULOPATHY TECHNIQUE: Noncontrast sagittal T1 spin echo and T2 fast echo, sagittal STIR, and T2 fast spin echo through the lumbar spine. In cases with scoliosis, additional coronal T2 fast spin echo may be performed. COMPARISON: [facility] [place], CR, XR LUMBAR SPINE 2 OR 3 VIEWS, 11/08/2022, 12:21. [facility], , MR LUMBAR SPINE WO CON, 11/04/2020, 15:14. FINDINGS: Image quality: Excellent. Alignment and Curvature: The same numbering system used on the prior examination will be used on the current report. 5 mm of anterolisthesis of L4 on L5. Bone Marrow: Marrow is of normal overall signal. No acute vertebral body compression fractures. Posterior fusion at L2-S1, as before. Moderate reactive signal throughout the endplates of the lumbar and lower thoracic spine, most prominently at T11-T12. Lower thoracic fusion hardware is present, terminating at T10. Spinal Cord: Conus medullaris terminates at the L1 level. Visualized cord demonstrates normal signal and size. Paraspinous Soft Tissues: No paravertebral masses. Laminectomy bed fluid collection is present as before at the L4-L5 level, measuring 64 mm craniocaudal by 35 mm anteroposterior by 45 mm transverse. Bilateral renal cysts are present, as before. The low T2 intensity focus within the right interpolar kidney measuring 18 mm is unchanged. T12-L1: Severe disc height loss and desiccation. Mild diffuse disc bulge with superimposed left paracentral and posterolateral protrusion/osteophyte. Mild bilateral facet hypertrophy. Mild canal stenosis. Severe left and mild right foraminal stenosis. Left T12 nerve root compression. No significant change. L1-L2: Moderate disc height loss and desiccation. Mild diffuse disc bulge. Mild facet and ligamentum flavum hypertrophy. Mild canal stenosis. Mild right and moderate left foraminal stenosis. No significant change. L2-L3: Posterior fusion. Interbody device placement. Mild residual disc/osteophyte complex. Mild bilateral facet hypertrophy. Mild canal stenosis. Moderate right and moderate to severe left foraminal stenosis. Mild left L2 nerve root compression. No significant change. L3-L4: Posterior fusion. Interbody device placement. Mild residual disc bulge/osteophyte. Mild bilateral facet hypertrophy. Mild canal stenosis. Moderate bilateral foraminal stenosis. No significant change. L4-L5: Posterior fusion and interbody device placement. Mild residual disc bulge. Mild bilateral facet hypertrophy. Mild canal stenosis. Moderate right and mild left foraminal stenosis. No significant change. L5-S1: Posterior fusion and interbody device placement. Mild residual disc bulge/osteophyte. Mild bilateral facet hypertrophy. Mild canal stenosis. Moderate left and moderate to severe right foraminal stenosis. Mild right L5 nerve root compression. No significant change. IMPRESSION: 1. Postsurgical sequelae. 2. Multilevel degenerative disc and facet disease, as well as ligamentum flavum hypertrophy and epidural lipomatosis. 3. Mild multilevel canal stenoses. 4. Multilevel foraminal stenoses, worst at T12-L1, L2-L3, and L5-S1 where there is associated intraforaminal nerve root compression. Recommend correlation with clinical symptoms to ascertain relevance of these findings. Dictated by: Karen Burroughs M.D. on 11/02/2023 at 12:27 Approved by: Karen Burroughs M.D. on 11/02/2023 at 12:43
== END ==
LOC: MRI 10:39
PROVIDERS: PCP Family Medicine; Referring Provider Anesthesiology Pain Medicine; Visit Provider Anesthesiology Pain Medicine
DX: M51.16 Intervertebral disc disorders with radiculopathy, lumbar region (principal); M51.17 Intervertebral disc disorders with radiculopathy, lumbosacral region; M47.26 Other spondylosis with radiculopathy, lumbar region; M47.27 Other spondylosis with radiculopathy, lumbosacral region; M48.07 Spinal stenosis, lumbosacral region; M48.061 Spinal stenosis, lumbar region without neurogenic claudication; M48.02 Spinal stenosis, cervical region; M48.05 Spinal stenosis, thoracolumbar region; Z98.1 Arthrodesis status
CPT/HCPCS: 72148

== ENCOUNTER → 2024-02-20 10:37 | Outpatient (CLI) | payer OTHER, SELFPAY ==
[2022-12-08 11:07] VITALS: BMI 37.6
--- NOTE | 2024-02-20 10:46 | DI.CT.S_ITS ---
PROCEDURE: CT LUMBAR SPINE WO CON INDICATIONS: lumbar radiculopathy TECHNIQUE: Noncontrast 3 mm thick sections acquired from the T12 level to the sacrum. Sagittal and coronal reformats were constructed. For radiation dose reduction, the following was used: automated exposure control. COMPARISON: [facility], MR, MR LUMBAR SPINE WO CON, 11/02/2023, 11:01. [facility], CT, CT LUMBAR SPINE WO CON, 06/27/2018, 11:34. FINDINGS: Image quality: Excellent. Bones: There is surgical fusion of lumbar spine at L2 through S1 levels with posterior fusion hardware in place. Partial bony fusion at T12-L1 level is also seen. Fixation hardware is seen in visualized lower thoracic spine at T9 and T10 levels. There is straightening of normal lumbar lordosis. No acute fracture or dislocation. No gross hardware loosening or failure. Mild levoscoliosis of lumbar spine with apex at L4 level is seen. T11-12: Loss of disc height, degenerative endplate changes and vacuum disc phenomenon is seen. There is moderate to severe central canal stenosis and bilateral neural foraminal narrowing. T12-L1: Near complete bony fusion. Dorsal disc osteophyte complex formation is seen with mild to moderate central canal stenosis and moderate to severe left-sided neural foraminal narrowing. L1-L2: Loss of disc height and degenerative endplate changes. Broad-based disc bulge and bilateral facet arthrosis causing moderate to severe central canal stenosis and left worse than right bilateral neural foraminal narrowing. L2-L3: Postsurgical changes. No significant central canal stenosis or neural foraminal narrowing. L3-L4: There are postsurgical changes. No significant central canal stenosis. Bilateral facet arthrosis is seen with [id number] bilateral neural foraminal narrowing. L4-L5: Postsurgical changes are noted. No significant central canal stenosis. Bilateral facet arthrosis is seen with right worse than left bilateral neural foraminal narrowing. L5-S1: There is prior posterior decompression. Bilateral facet arthrosis is seen with moderate to severe bilateral neural foraminal narrowing. No significant central canal stenosis. Soft tissues: No retroperitoneal masses or hematomas. Visualized aorta is normal in caliber. IMPRESSION: 1. Extensive postsurgical changes from fixation of thoracic spine and lumbar spine fusion at L2 through S1 levels. Near complete bony fusion is also noted at T12-L1 level. No acute fracture or dislocation. No gross hardware loosening or failure. 2. Degenerative disc disease in lower thoracic and lumbar spine. Bilateral facet arthrosis are also seen throughout lumbar spine. There is various degrees of central canal stenosis and neural foraminal narrowing as described in detail above. 3. No gross paraspinous soft tissue abnormalities. Dictated by: Yuval Lund M.D. on 02/22/2024 at 11:13 Approved by: Yuval Lund M.D. on 02/22/2024 at 11:18
== END ==
PROVIDERS: PCP Family Medicine; Referring Provider Orthopaedic Surgery Orthopaedic Surgery of the Spine; Visit Provider Orthopaedic Surgery Orthopaedic Surgery of the Spine
DX: M51.34 Other intervertebral disc degeneration, thoracic region (principal); M51.16 Intervertebral disc disorders with radiculopathy, lumbar region; M47.26 Other spondylosis with radiculopathy, lumbar region; M47.27 Other spondylosis with radiculopathy, lumbosacral region; M48.061 Spinal stenosis, lumbar region without neurogenic claudication; M48.07 Spinal stenosis, lumbosacral region; Z98.1 Arthrodesis status
CPT/HCPCS: 72131

== ENCOUNTER → 2024-02-28 14:09 | Outpatient (CLI) | payer OTHER, SELFPAY ==
[2022-12-08 11:07] VITALS: BMI 37.6
--- NOTE | 2024-02-28 14:11 | DI.MRI.S_ITS ---
PROCEDURE: MR WRIST RT WO CON INDICATIONS: SCAPHOLUNATE ADVANCED COLLAPSE, RT WRIST TECHNIQUE: Noncontrast coronal proton density fast spin echo and T2 fast spin echo with fat saturation; coronal 3-D gradient echo, axial T1 spin echo and T2 fast spin echo with fat saturation, sagittal T1 spin echo through the wrist. COMPARISON: [facility] [place], CR, XR WRIST 3+ VIEWS RIGHT, 02/05/2024, 15:46. FINDINGS: Image quality: Fair; motion artifact limits optimal evaluation. Bones: Edema and subchondral cyst formation is present throughout the volar and dorsal scaphoid cortices with a partially healed and incomplete fracture along the volar proximal pole (/). There is a dysmorphic appearance of the distal radius in keeping with a prior, healed fracture (07/29-). There is no carpal bone osteonecrosis. There is no acute fracture. Joints: Posttraumatic osteoarthritis is present at the triscaphe articulation, radiocarpal joint, in capital lunate articulation with mild proximal descent of the capitate (5/6). There is an increased horizontal orientation of the scaphoid (6/8) with a dorsal tilt of the lunate (6/13) and scapholunate angle of 64.4 degrees. There is no significant fluid within the distal radioulnar joint, radiocarpal joint, or midcarpal space. Intrinsic Ligaments: There is widening of the scapholunate interval up to the 4 mm (5/8). The lunotriquetral interval is normal. The intrinsic scapholunate and lunotriquetral ligaments are difficult to assess due to motion artifact. Extrinsic Ligaments: There is a full-thickness tear of the dorsal radiocarpal ligament (6/14) and possible prior injury of the dorsal intercarpal ligament at the lunate attachment (6/14). The other extrinsic ligaments are grossly normal. Triangular Fibrocartilage Complex: The triangular fibrocartilage disc proper, distal dorsal and volar radioulnar ligaments, ulnar collateral ligament/meniscal homologue, ulnotriquetral, and ulnolunate ligaments are normal. Tendons: The flexor and extensor tendons are normal. Nerves: The median and ulnar nerves appear normal in size and signal. Other: No other acute abnormality. IMPRESSION: Overall, findings of dorsal intercalated segmental instability and scapholunate advanced collapse with likely full-thickness tearing of the scapholunate ligament complex. No carpal bone osteonecrosis. Dictated by: Reginald Grayson M.D. on 03/01/2024 at 16:45 Approved by: Reginald Grayson M.D. on 03/01/2024 at 17:06
== END ==
PROVIDERS: PCP Family Medicine; Referring Provider Orthopaedic Surgery; Visit Provider Orthopaedic Surgery
DX: M19.131 Post-traumatic osteoarthritis, right wrist (principal); M25.331 Other instability, right wrist
CPT/HCPCS: 73221

== ENCOUNTER → 2024-04-25 12:44 | Outpatient (CLI) | payer OTHER, SELFPAY ==
[2022-12-08 11:07] VITALS: BMI 37.6
== END ==
PROVIDERS: Family Provider Family Medicine; PCP Family Medicine; Referring Provider Orthopaedic Surgery Orthopaedic Surgery of the Spine; Visit Provider Orthopaedic Surgery Orthopaedic Surgery of the Spine
DX: M54.16 Radiculopathy, lumbar region (principal); Z98.1 Arthrodesis status
CPT/HCPCS: 95886; 95911

== ENCOUNTER → 2024-05-22 16:55 | Outpatient (CLI) | payer OTHER, SELFPAY ==
[2022-12-08 11:07] VITALS: BMI 37.6
[2024-05-22 18:07] LABS: Add Manual Diff / Slide Review NO; Basophils Absolute Auto 100 /uL (0-100); Basophils Percent Auto 0.8 % (0-2); Eosinophils Absolute Auto 500 /uL (0-450); Eosinophils Percent Auto 4.5 % (2-4); Hematocrit 33.9 % (36-46); Hemoglobin 11.5 g/dL (12.0-16.0); Lymphocytes Absolute Auto 3100 /uL (1100-4500); Lymphocytes Percent Auto 26.8 % (25-40); Mean Corpuscular Hemoglobin 28.4 PG (26-34); Mean Corpuscular Volume 83.3 fL (80-100); Monocytes Absolute Auto 800 /uL (0-900); Monocytes Percent Auto 7.3 % (3-14); Neutrophils Absolute Auto 6900 /uL (1500-7000); Neutrophils Percent Auto 60.6 % (50-75); Platelet Count 330 X10^3/uL (150-400); Red Blood Cell Count 4.06 X10^6/uL (4.0-5.2); Red Cell Distribution Width 13.4 % (11.6-14.8); White Blood Cell Count 11.5 X10^3/uL (4.5-11.0)
[2024-05-22 18:16] LABS: Hemoglobin A1C% w Est Avg Glu 6.3 % (4.0-6.0)
[2024-05-22 18:32] LABS: Alanine Aminotransferase 34 IU/L (<35); Albumin 4.4 g/dL (3.5-5.0); Albumin Globulin Ratio 1.8 (1.0-2.8); Alkaline Phosphatase 69 U/L (38-126); Aspartate Aminotransferase 28 IU/L (14-36); BUN Creatinine Ratio 22.4 (6-22); Bilirubin Total 0.6 mg/dL (0.2-1.3); Blood Urea Nitrogen 26 mg/dL (7-17); Calcium 10.4 mg/dL (8.4-10.2); Carbon Dioxide 28 mmol/L (22-32); Chloride 100 mmol/L (98-107); Cholesterol 156 mg/dL (140-199); Estimated Glomerular Filt Rate 51 mL/min (>60); Globulin 2.4 g/dL (1.7-4.1); Glucose 108 mg/dL (80-110); HDL Cholesterol 37 mg/dL (40-60); HEMOLYSIS < 15 (0-50); LDL Cholesterol Calculated 64 mg/dL (<100); Potassium 3.8 mmol/L (3.4-5.1); Sodium 139 mmol/L (137-145); Total Protein 6.8 g/dL (6.3-8.2); Triglycerides 277 mg/dL (35-150)
== END ==
PROVIDERS: Family Provider Family Medicine; PCP Family Medicine; Referring Provider Family Medicine; Visit Provider Family Medicine
DX: E11.9 Type 2 diabetes mellitus without complications (principal); I10 Essential (primary) hypertension; E78.5 Hyperlipidemia, unspecified; E66.9 Obesity, unspecified
CPT/HCPCS: 36415; 80053; 80061; 83036; 85025

== ENCOUNTER → 2024-06-12 12:54 | Outpatient (CLI) | payer OTHER, SELFPAY ==
[2022-12-08 11:07] VITALS: BMI 37.6
--- NOTE | 2024-06-12 12:59 | DI.US.S_ITS ---
MM diagnostic mammo BI, US breast LT limited: 06/12/2024 BI-RADS: 2 CLINICAL: 68-year old female for bilateral diagnostic mammogram and left diagnostic breast ultrasound. Tyrer-Cuzick lifetime risk of 3.1%. No personal or first-degree family history of breast cancer. The patient reports a palpable abnormality (1 year) in the left breast. PRIOR EXAMS Outside films 07/21/2022, 08/14/2017, and 08/12/2016. MAMMOGRAPHY TECHNIQUE: 2D and 3D (tomosynthesis) digital mammographic views obtained, with additional images as needed for full coverage. Current study was also evaluated with a Computer Aided Detection (CAD) system. ULTRASOUND TECHNIQUE Real-time beauchamp scale and color doppler imaging of the area of clinical interest was performed with image documentation. Left targeted breast ultrasound of the area of clinical interest and the axilla was performed with image documentation. DENSITY B. There are scattered areas of fibroglandular density. MAMMOGRAPHY FINDINGS Right: No suspicious mass, asymmetry, microcalcification, or other abnormality seen. Left: Upper Inner at 10:00, Posterior depth: Correlating with palpable lump there is skin thickening present. There are no suspicious masses, calcifications, or other findings in the breast. ULTRASOUND FINDINGS Left: Upper Inner at 10:00, 15 cm from nipple, Superficial Depth, measuring 2.2 x 0.7 x 1.7 cm: Correlating with palpable lump and also with findings on mammogram there is fluid collection. The finding may represent a skin finding, however no definite skin tract is visualized. There is surrounding hyperemia likely reflecting inflammation/infection of probable skin based finding. . IMPRESSION: Right * No evidence of malignancy. Left * No evidence of malignancy with benign findings. RECOMMENDATIONS Right * Patient has already consulted surgery for area of palpable concern at the 10 o'clock position and reports surgical removal scheduled for June 2024. If no surgical treatment is pursued, recommend follow up left breast ultrasound in 6 months to demonstrate stability/resolution. Bilateral * Annual screening mammography. COMMENTS: Findings and recommendations were conveyed to the patient during today's evaluation. OVERALL ASSESSMENT CATEGORY BI-RADS-2: Benign. The [employer] recommends annual screening mammography beginning at age 40 for women with average risk of breast cancer. ELECTRONICALLY SIGNED: Arlet Wagner M.D. on 06/12/2024 at 04:03:48 PM PT Interpreting Station ID: [id number]
== END ==
PROVIDERS: Family Provider Family Medicine; PCP Family Medicine; Referring Provider Surgery; Visit Provider Surgery
DX: N63.22 Unspecified lump in the left breast, upper inner quadrant; L72.0 Epidermal cyst
CPT/HCPCS: 76642; 77066; G0279

== ENCOUNTER → 2024-06-22 13:26 | Outpatient (CLI) | payer OTHER, SELFPAY ==
[2022-12-08 11:07] VITALS: BMI 37.6
--- NOTE | 2024-06-22 13:29 | DI.RAD.S_ITS ---
PROCEDURE: XR KNEE RT 3V INDICATIONS: R knee pain and trauma TECHNIQUE: 3 views of the knee were acquired. COMPARISON: [facility], CR, XR KNEE LT 1TO2V, 12/07/2020, 9:51. FINDINGS: Bones: No fractures or dislocations. Moderate to severe tricompartmental osteoarthritis is seen more notably in medial femoral tibial compartment. No patellar subluxation. No suspicious bony lesions. Soft tissues: Small to moderate joint effusion. No suspicious soft tissue calcifications. IMPRESSION: No acute right knee fracture or dislocation. Moderate to severe tricompartmental osteoarthritis. Small to moderate joint effusion. Dictated by: Yuval Lund M.D. on 06/22/2024 at 19:59 Approved by: Yuval Lund M.D. on 06/22/2024 at 20:00
== END ==
LOC: RAD 13:28
PROVIDERS: Family Provider Family Medicine; PCP Family Medicine; Referring Provider Chiropractor; Visit Provider Chiropractor
DX: S80.01XA Contusion of right knee, initial encounter (principal); M17.11 Unilateral primary osteoarthritis, right knee; M25.461 Effusion, right knee; X58.XXXA Exposure to other specified factors, initial encounter
CPT/HCPCS: 73562

== ENCOUNTER 2024-07-10 12:42 | Day surgery (SDC) | payer OTHER, SELFPAY ==
[2022-12-08 11:07] VITALS: BMI 37.6
[2024-07-10] VITALS (7 sets, daily range): BP systolic 122–145; BP diastolic 74–80; PULSE 81–100; RESP 10–17; TEMP 36.4–37.1; O2SAT 91–98; BMI 38.4
--- NOTE | 2024-07-10 | PATH_ITS ---
[facility] Accession Number: [id number] No. of containers..01 Tissue . 01 Material submitted: . chest - LEFT PECTORAL SKIN . 01 Diagnosis: LEFT PECTORAL SKIN, EXCISION: Area of dermal defect surrounded by scarring and acute and granulomatous inflammation with foreign body giant cell reaction to keratinous flakes, consistent with the site of a previously ruptured/treated epidermal inclusion cyst. . Note: No remnants of a cyst wall are visualized histologically. Clinicopathological correlation is advised. MRV 07/17/2024 1513 Local . 01 Electronically signed: . Swati Freeman MD, Dermatopathologist NPI- [id number] . 01 Gross description: . Received in formalin with two identifiers and left pectoral skin, is an unoriented ellipse of javed wrinkled skin measuring 3.9 x 1.0 cm and measures up to 3.2 cm thick. The margin is inked blue. The specimen is serially sectioned into 13 slices to reveal yellow, soft adipose and a yellow-orange ill-defined lesion located beneath the skin surface and measuring 1.3 x 0.8 x 0.3 cm. No distinct cyst is identified. . [employer] sections are submitted as follows: A1: Slice 1 tip. A2-A6: Sequential slices 4-9 to include entire lesion and grossly normal sections on either side of lesion. A7: Slice 11 with second skin tip. ([id number]) /MRV 07/17/2024 1149 Local . 01 Pathologist provided ICD-10: L72.0 . 01 CPT . 263759 Specimen Comment: A courtesy copy of this report has been sent to [phone] Performed at: [address] [id number] MD Grayson Stevens MD Phone: [phone]
[2024-07-10] MEDS: FAMOTIDINE 20 MG/2 ML VIAL IV (14:06)
[2024-07-10] MEDS: LACTATED RINGERS 1,000 ML 42 ML IV (14:06)
[2024-07-10] MEDS: ACETAMINOPHEN 325 MG TABLET 975 MG PO (14:06)
[2024-07-10] MEDS: SCOPOLAMINE 1 PATCH TOP (14:06)
--- NOTE | 2024-07-10 14:53 | PM.PREOP ---
Pre-operative Note COVID-19 COVID-19 status: Not tested Interval Note History & Physical reviewed/Exam performed by Physician: Yes Changes to H&P: No ASA Class (for procedural sedation): II
--- NOTE | 2024-07-10 15:44 | SUR.OPER ---
Supine on padded OR bed, head on pillow, arms secured on padded arm boards at <90 degrees abduction, legs uncrossed, safety belt at thigh, tape over blanket over lower legs.
--- NOTE | 2024-07-10 15:56 | PM.OP.1 ---
Operative Date/Time/Diagnoses Date of procedure: 07/10/24 Time of procedure: 15:57 Pre-op diagnosis: Left breast epidermal cyst Post-op diagnosis: same Procedure & Clinicians Procedure: Excisional biopsy of left breast epidermal cyst Same procedure as scheduled: Yes Surgeon: Huang Stringer New Car Make Ready Worker: Flo Mederos Click Yes if Unassisted: Yes Anesthesia Type: General Operative Notes Findings: Not applicable Estimated Blood Loss (mL): 5 Procedure in detail: The patient was brought to the operating room and placed on the table in the supine position. Monitored anesthesia was induced. The left breast and central chest were prepped and draped in the usual fashion and a time-out was performed. Local anesthetic was injected around the skin lesion. We then created a 5 cm x 2 cm ellipse to excise the epidermal cyst. The deepest aspect of the dissection extended just about down to the pectoralis fascia. We injected some local into the deep portions of the wound. We undermined the superior flap about 1 cm back to allow a tension-free closure. We then closed the skin with multiple interrupted 3-0 Vicryl dermal sutures followed by a running 4-0 Monocryl subcuticular stitch. EBL: 5 mL Specimen: Left pectoral epidermal cyst Flo DICKENS provided assistance with exposure, retraction and closure of incisions. Complications: none Post-operative Condition: stable Disposition: PACU
[2024-07-10] MEDS: BUPIVACAINE 0.5% W/ EPI (PF) 30 ML VIAL INJ (16:01)
[2024-07-10] MEDS: OXYCODONE IR 5 MG TABLET PO (16:43)
[2024-07-10] MEDS: hydrOXYzine 50 MG/ML INJ 25 MG IM (16:44)
== END 2024-07-10 16:58 | disposition home or self-care (01) ==
PROVIDERS: Family Provider Family Medicine; PCP Family Medicine; Referring Provider Surgery; Visit Provider Surgery
PROC: (CPT 19120; principal; 2024-07-10 14:45)
DX: L72.0 Epidermal cyst (principal); Z87.891 Personal history of nicotine dependence
CPT/HCPCS: 19120; J1100; J2250; J2405; J2704; J3010; J3410

== ENCOUNTER → 2024-07-15 13:27 | Outpatient (CLI) | payer OTHER, SELFPAY ==
[2022-12-08 11:07] VITALS: BMI 37.6
--- NOTE | 2024-07-15 13:28 | DI.RAD.S_ITS ---
PROCEDURE: XR HIP W PEL IF DONE RT 2V INDICATIONS: severe R hip pain 3wk after fall TECHNIQUE: AP pelvis with lateral view of the right hip. COMPARISON: [facility] [place], CR, XR PELVIS WITH LATERAL HIP LEFT, 05/08/2023, 16:27. [facility], CR, XR HIP W PEL IF DONE LT 2V, 12/08/2022, 10:00. FINDINGS: Bones: Postsurgical changes from left hip arthroplasty. Surgical hardware is also seen in the included lumbosacral spine. No acute osseous fracture or dislocation. Moderate right hip osteoarthrosis. Soft tissues: The visualized bowel gas pattern is normal. No suspicious soft tissue calcifications. IMPRESSION: No acute osseous abnormality. If there is continued clinical concern or persistent symptoms, repeat radiographs or cross-sectional imaging (e.g. CT, MRI) may be helpful for further evaluation. Approved by: Gabriel Agarwal M.D. on 07/15/2024 at 13:05
== END ==
PROVIDERS: Family Provider Family Medicine; PCP Family Medicine; Referring Provider Chiropractor; Visit Provider Chiropractor
DX: M25.551 Pain in right hip (principal)
CPT/HCPCS: 73502

== ENCOUNTER → 2024-08-06 14:49 | Outpatient (CLI) | payer OTHER, SELFPAY ==
[2022-12-08 11:07] VITALS: BMI 37.6
--- NOTE | 2024-08-06 14:50 | DI.MRI.S_ITS ---
PROCEDURE: MR HIP RT WO CON INDICATIONS: Evaluate right hip pain and extent of arthritis TECHNIQUE: Noncontrast coronal T1 spin echo and STIR through the bony pelvis. Coronal and axial T2 fast spin echo with fat saturation, sagittal T1 spin echo, and oblique axial T2 fast spin echo with fat saturation through the hip. COMPARISON: None. FINDINGS: Image quality: Excellent. Bones and joints: Posterior fusion instrumentation of the lower lumbar spine, extending to bilateral sacroiliac joint, creating artifacts and limits evaluation. The sacrum is intact. No acute fracture or dislocation of the right hip. Mild degenerative changes of the right hip. Status post left hip arthroplasty, creating artifacts and limits evaluation. Tendons and ligaments: The right iliopsoas, adductor tendons unremarkable. Mild tendinosis of the hamstring with low-grade tear at the ischial tuberosity. Low- grade tear of the right gluteal minimus and the right gluteal medius. Trace right greater trochanteric bursitis. Labrum and cartilage: Severe labral degeneration, with circumferential labral tear. Paralabral cyst about the superior labrum, measuring 9 mm. Soft tissues: 3.3 cm left ovarian cyst. IMPRESSION: 1. Mild degenerative changes of the right hip with severe labral degeneration, circumferential labral tear, and 9 mm paralabral cyst. 2. Low-grade tear of the right hamstring tendon, and the right gluteal minimus and medius. 3. 3.3 cm left ovarian cyst. Recommend follow-up pelvic ultrasound. Dictated by: Milly Armenta M.D. on 08/06/2024 at 17:53 Approved by: Milly Armenta M.D. on 08/06/2024 at 18:00
== END ==
PROVIDERS: Family Provider Family Medicine; PCP Family Medicine; Referring Provider Orthopaedic Surgery Adult Reconstructive Orthopaedic Surgery; Visit Provider Orthopaedic Surgery Adult Reconstructive Orthopaedic Surgery
DX: M16.11 Unilateral primary osteoarthritis, right hip (principal); S76.811A Strain of other specified muscles, fascia and tendons at thigh level, right thigh, initial encounter; S76.011A Strain of muscle, fascia and tendon of right hip, initial encounter; N83.202 Unspecified ovarian cyst, left side; M24.851 Other specific joint derangements of right hip, not elsewhere classified; M25.551 Pain in right hip; Z96.642 Presence of left artificial hip joint; Z98.1 Arthrodesis status
CPT/HCPCS: 73721

== ENCOUNTER → 2024-08-08 12:44 | Outpatient (CLI) | payer OTHER, SELFPAY ==
[2022-12-08 11:07] VITALS: BMI 37.6
[2024-08-08 14:00] LABS: BUN Creatinine Ratio 20.5 (6-22); Blood Urea Nitrogen 18 mg/dL (7-17); Calcium 10.1 mg/dL (8.4-10.2); Carbon Dioxide 26 mmol/L (22-32); Chloride 102 mmol/L (98-107); Estimated Glomerular Filt Rate > 60 mL/min (>60); Glucose 267 mg/dL (70-99); HEMOLYSIS < 15 (0-50); Potassium 4.5 mmol/L (3.4-5.1); Sodium 136 mmol/L (137-145)
[2024-08-08 14:31] LABS: TSH w/ Reflex to FT4 0.05 uIU/mL (0.47-4.68)
[2024-08-08 14:58] LABS: Free T4, Direct Thyroxine 0.94 ng/dL (0.78-2.19)
[2024-08-08 15:34] LABS: Creatinine Urine Random 161.23 mg/dL
[2024-08-08 15:48] LABS: Vitamin D 25 Hydroxy (D3) 29.5 ng/mL (30.0-100.0)
== END ==
PROVIDERS: Family Provider Family Medicine; PCP Family Medicine; Referring Provider Family Medicine; Visit Provider Family Medicine
DX: E66.9 Obesity, unspecified (principal); E11.9 Type 2 diabetes mellitus without complications; I10 Essential (primary) hypertension; E83.52 Hypercalcemia; N28.9 Disorder of kidney and ureter, unspecified
CPT/HCPCS: 80048; 82043; 82306; 82330; 82570; 83883; 83970; 84155; 84165; 84439; 84443

== ENCOUNTER → 2024-08-14 13:28 | Outpatient (CLI) | payer OTHER, SELFPAY ==
[2022-12-08 11:07] VITALS: BMI 37.6
--- NOTE | 2024-08-15 16:32 | DIET.OUTPTC ---
Dietary Outpatient Consult Consult Date: 08/14/24 Assessment:?68 y F referred to dietitian for obesity, type 2 DM and hypertension Pt has had many ortho-related surgeries and is chronically in pain. Reports losing hope and wanting to give up. Has had significant life trauma in the past and developed nighttime eating as cooping mechanism. Pt unable to stop herself during nighttime eating, eating past point of being full. Sometimes pt unable to sleep d/t pain, sees painter maintenance soon again. Pt has dexcom CGM 7 with rotary cutter feeder. Did not bring in rotary cutter feeder today. Was previously on ozempic .5mg, which was effective in lowering BG (A1c 6.3,6.5) but stopped. Planning to restart on .5 mg, can't go higher without GI issues. Considering bariatric surgery. Diet recall: B- 1 c coffee with 1/4 c international delight libyan vanilla creamer Dinner: out to eat at [employer] (fish and chips and water) or [employer] (tuna sandwich, chips, regular soda) or steak. Sometimes cooks at home.Sometimes taco manzo or [employer] 2x/wk ice cream bed by 7pm 11p-3am: buttered bread in milk or apolinar crackers in milk Fluids: water (1/2 gal with crystal light), milk, sugar free tea GI symptoms: BM daily type 1,2,or 4 on stool chart. Acid reflux well controlled with medication. Pending MBS. Ht:?5 ft 2 in? Wt: 211 lb 4 oz?? BMI:?38.6? Activity: gardening and walking in morning, chronic pain and ortho issues limit activity Pertinent Labs: 9.5% A1c 08/14/24, TG 277 and HDL 37 on 05/29/24, vit D 29.5 on 08/08/24 Nutrition Diagnosis:? Altered nutrition related lab values (A1c%) r/t excessive CHO intake, inconsistent CHO intake aeb dietary recall with binge-like eating at night, 1 large meal per day, regular soda Interventions:? Discussed and provided appropriate resources on the following: Mental health referral, pt agreeable. Messaged provider group. Multiple meals during day/consistent intakes to reduce binge-like eating Completed intake assessment. Discussed barriers to care. Pathophysiology of T2DM Plate Method, impact of macronutrients on blood sugar, meal timing, carbohydrate counting, pairing macronutrients and spreading out carbohydrates for better blood glucose management Recommended servings for carbohydrates at meals and snacks Brainstormed appropriate meal plan based on food preferences Created SMART goals for patient self-care and success. Goals: -Establish with therapist to work out underlying trauma and associated binge-like eating at night -Spread out carbs with daytime eating: Protein shake in morning and 1 piece of fruit, sandwich on 2 sl whole wheat bread in afternoon with carrots -No regular soda -Bring dexcom rotary cutter feeder for next visit EER:? 30-45 g CHO at meals Monitoring/Evaluations:? F/u in 3 wks Electronically Signed by: Gertrudis Villa Clinical Dietitian [address] [id number]
== END ==
PROVIDERS: PCP Family Medicine
DX: E66.9 Obesity, unspecified (principal); E11.9 Type 2 diabetes mellitus without complications; I10 Essential (primary) hypertension; Z71.3 Dietary counseling and surveillance; Z68.38 Body mass index [BMI] 38.0-38.9, adult; K21.9 Gastro-esophageal reflux disease without esophagitis
CPT/HCPCS: 97802

== ENCOUNTER → 2024-08-14 13:37 | Outpatient (CLI) | payer OTHER, SELFPAY ==
[2022-12-08 11:07] VITALS: BMI 37.6
[2024-08-14 14:38] LABS: BUN Creatinine Ratio 27.6 (6-22); Blood Urea Nitrogen 24 mg/dL (7-17); Calcium 10.6 mg/dL (8.4-10.2); Carbon Dioxide 26 mmol/L (22-32); Chloride 101 mmol/L (98-107); Estimated Glomerular Filt Rate > 60 mL/min (>60); Glucose 255 mg/dL (70-99); HEMOLYSIS < 15 (0-50); Potassium 4.7 mmol/L (3.4-5.1); Sodium 138 mmol/L (137-145)
[2024-08-14 14:41] LABS: Hemoglobin A1C% w Est Avg Glu 9.5 % (4.0-6.0)
== END ==
PROVIDERS: PCP Family Medicine; Referring Provider Family Medicine; Visit Provider Family Medicine
DX: E11.9 Type 2 diabetes mellitus without complications (principal); N28.9 Disorder of kidney and ureter, unspecified; E66.9 Obesity, unspecified; I10 Essential (primary) hypertension; Z71.3 Dietary counseling and surveillance; Z68.38 Body mass index [BMI] 38.0-38.9, adult; K21.9 Gastro-esophageal reflux disease without esophagitis
CPT/HCPCS: 36415; 80048; 83036; 97802

== ENCOUNTER 2024-09-04 13:16 | Emergency (ER) | payer OTHER, SELFPAY ==
[2022-12-08 11:07] VITALS: BMI 37.6
[2024-09-04] VITALS (8 sets, daily range): BP systolic 123–145; BP diastolic 69–77; PULSE 76–82; RESP 14–24; TEMP 36.4; O2SAT 96–99; BMI 38.5
--- NOTE | 2024-09-04 13:28 | EKG_ITS ---
[address] [address] Test Date: 2024-09-04 Pat Name: Enriqueta Vazquez Department: [facility] Room: Gender: Female Public Services Librarian: sangeetha : 1955 Requested By: Order Number: [id number] Reading MD: Geronimo Cook Measurements Intervals [place] Rate: 72 P: -5 [place]: 186 QRS: -6 QRSD: 80 T: 35 QT: 398 QTc: 435 Interpretive Statements Normal sinus rhythm with sinus arrhythmia Electronically Signed On 09-05-2024 18:04:57 PDT by Geronimo Cook
[2024-09-04 13:47] LABS: Add Manual Diff / Slide Review NO; Hematocrit 39.4 % (36-46); Hemoglobin 13.0 g/dL (12.0-16.0); Lymphocytes Absolute Auto 1800 /uL (1100-4500); Mean Corpuscular HGB Conc 33.1 % (30-36); Mean Corpuscular Hemoglobin 27.5 PG (26-34); Mean Corpuscular Volume 83.2 fL (80-100); Platelet Count 329 X10^3/uL (150-400)
[2024-09-04 13:51] LABS: Alanine Aminotransferase 40 IU/L (<35); Albumin 4.7 g/dL (3.5-5.0); Albumin Globulin Ratio 1.7 (1.0-2.8); Alkaline Phosphatase 87 U/L (38-126); Blood Urea Nitrogen 21 mg/dL (7-17); Calcium 10.1 mg/dL (8.4-10.2); Carbon Dioxide 22 mmol/L (22-32); Chloride 106 mmol/L (98-107); Estimated Glomerular Filt Rate > 60 mL/min (>60); Globulin 2.8 g/dL (1.7-4.1); Glucose 148 mg/dL (70-99); HEMOLYSIS < 15 (0-50); Lipase 281 U/L (23-300); Potassium 3.9 mmol/L (3.4-5.1); Sodium 138 mmol/L (137-145); Total Protein 7.5 g/dL (6.3-8.2)
[2024-09-04] MEDS: ONDANSETRON 4 MG/2 ML INJ IV (18:03)
[2024-09-04] MEDS: SODIUM CHLORIDE 0.9% 1,000 ML 1000 ML IV (18:46)
--- NOTE | 2024-09-04 18:52 | PC.NURSE ---
iv placed by another Nurse
--- NOTE | 2024-09-04 19:01 | ED_ITS ---
HPI - Nausea/Vomiting/Diarrhea General Chief complaint: Nausea/Vomiting/Diarrhea Stated complaint: Took to much Ozempic Time Seen by Provider: 09/04/24 13:59 Source: patient Mode of arrival: Ambulatory History of Present Illness HPI Narrative: Pleasant 69-year-old woman comes to the ER because of nausea vomiting and diarrhea. She states she has been having watery diarrhea without blood for the last 2 weeks. 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 But add 1 episode of vomiting today which was her only episode of vomiting this also had no blood. The patient reports that she took a much higher dose than she was prescribed of her Ozempic. She states this is because her doctor had recently restarted the medication and she mistakenly took the wrong dose. She did this last week and again 2 days ago. She denies any fever, chills, sweats, abdominal pain, chest pain, shortness of breath, lightheadedness, dizziness or any other concerns or complaints. Related Data Home Medications ?Medication ?Instructions ?Recorded ?Confirmed acetaminophen 650 mg 1,300 mg PO Q8H PRN Pain 02/1108/21/24 tablet,extended release (Tylenol 8 Hour) methocarbamol 500 mg tablet 500 mg PO BEDTIME 07/01/22 08/21/24 esomeprazole magnesium 20 mg 20 mg PO DAILY 12/02/22 0 08/21/24 capsule,delayed release (Nexium) acetaminophen 300 mg-codeine 30 mg 1 tab PO Q12H PRN P ain (Scale 11/10/23 08/21/24 tablet Score 1-3) hydroxyzine HCl 10 mg tablet 10 mg PO BEDTIME 05/18/24 08/21/24 Previous Rx's ?Medication ?Instructions ?Recorded lidocaine 5 % topical patch 1 patch topical DAILY #30 ea 11/10/23 (Lidoderm) duloxetine 30 mg capsule,delayed See Rx Instructions P O DAILY #90 01/01/24 release (Cymbalta) caps rosuvastatin 20 mg tablet 20 mg PO DAILY #90 tabs 12/21 03/15 amlodipine 10 mg tablet 10 mg PO BEDTIME #90 tabs ondansetron 4 mg disintegrating 4 mg PO Q8H PRN nausea and 05/22/24 tablet vomiting #20 tabs gabapentin 300 mg capsule See Rx Instructions .Route 0 07/01/24 .COMPLEX #480 caps losartan 100 mg tablet 100 mg PO DAILY #90 tabs 02/13 hydrocodone 5 mg-acetaminophen 325 1 tab PO Q8H PRN pa in #7 tabs 07/10/24 mg tablet semaglutide 0.25 mg or 0.5 mg (2 0.5 mg (0.736 mL) SUB CUT QWEEK #9 08/14/24 mg/3 mL) subcutaneous pen injector mL (Ozempic) FreeStyle Sherrell 14 Day Sensor #6 ea 08/16/24 (flash glucose sensor) Allergies Allergy/AdvReac Type Severity Reaction Status Date / Time adhesive tape Allergy Severe Rash, Verified 09/04/24 13:27 itching oxycodone Allergy Severe ITCHING, Verified 09/04/24 13:27 nausea/vomiting latex Allergy Rash Verified 09/04/24 13:27 hydromorphone AdvReac Severe Nausea/vomi Verified 09/04/24 13:27 ting morphine AdvReac Mild ANXIETY, Verified 09/04/24 13:27 nausea, vomiting Sulfa (Sulfonamide AdvReac Unknown Gastrointestinal Verified 09/04/24 13:27 Antibiotics) Upset All narcotics AdvReac Severe Nausea, Uncoded 08/21/24 16:37 vomiting Patient History Medical History (Updated 09/04/24 @ 19:04 by Claudy Linn MD) Fusion of lumbar spine Primary osteoarthritis of right hip Obesity (BMI 35.0-39.9 without comorbidity) History of COVID-19 Anesthesia complication Chronic back pain Mumps Measles Chicken pox Abnormal Pap smear of cervix Benign essential HTN Type 2 diabetes mellitus without complication, with no history of insulin use (~2020) Difficult intravenous access Cervical dysplasia Sepsis (09/2014) BECCA on CPAP Anxiety Depression GERD (gastroesophageal reflux disease) (~2009) Pancreatitis (04/06/14) HLD (hyperlipidemia) HTN (hypertension) Diabetes Surgical History (Updated 06/26/24 @ 12:44 by Elida Mcfarland RN) 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) History of total left knee replacement (~12/07/20) Anesthesia History of cervical biopsy History of carpal tunnel release History of conization of cervix S/p bilateral blepharoplasty (2020) Hx of bilateral cataract extraction History of bilateral tubal ligation (1993) Hx of dilation and curettage History of lumbar fusion (2018) Hx of laminectomy (07/2019) S/P cervical spinal fusion History of colonoscopy with polypectomy History of 2 sections History of lumbar fusion (07/29/09) Hx of appendectomy Family History Mother Diabetes mellitus History of heart disease Hypertension Hyperlipidemia Social History marital status: household members: spouse lives independently: Yes occupational status: previously employed alcohol intake: former substance use type: does not use Smoking Status: Former smoker alcohol intake frequency: holidays/special occasions only Exam Initial Vital Signs Initial Vital Signs: Vital Signs Temperature 97.5 F L 09/04/24 13:22 Pulse Rate 81 09/04/24 13:22 Respiratory Rate 20 09/04/24 13:22 Blood Pressure 145/73 H 09/04/24 13:22 Pulse Oximetry 99 09/04/24 13:22 Oxygen Delivery Method Room Air 09/04/24 13:22 Const General: cooperative, No acute distress, No in distress and No ill appearing [facility] Head: normal to inspection, normocephalic and atraumatic Face and sinus: normal facial exam Eyes General: Yes appearance normal, both eyes and all related structures Pupils: PERRL EOM: EOM intact bilaterally Neck Neck: normal visual inspection, supple and No tender Resp Effort & Inspection: normal respiratory effort Auscultation: clear to auscultation bilaterally Cardio Rate: regular rate Rhythm: regular rhythm Heart Sounds: S1 normal and S2 normal GI Inspection: non-distended Palpation: soft, No no hepatosplenomegaly, No firm, No guarding, No mass and No tender Auscultation: normal bowel sounds General: No CVA tenderness Back/Spine/Pelvis Back: No CVA tenderness Neuro General: patient alert, patient awake and patient oriented x3 Cranial Nerves: CN's II-XI intact bilaterally Course Course Course Narrative: Patient seen and examined by myself when I arrived in the ER. She had taken a times her prescribed dose of Ozempic for 2 weeks in a row with the most recent dose 2 days ago. Nausea vomiting and diarrhea are known side effects of Ozempic and overdose of Ozempic. Thankfully, the patient's lipase and blood sugar were within normal limits. I discussed the case with poison control who had no additional recommendations in terms of treatment and advised that she had a very mild case of Ozempic overdose as many patients with this condition require multiple antiemetics and pain medication to control her symptoms. The patient symptoms were well controlled with just Zofran in the ER, thus she was prescribed ODT Zofran to use at home and advised to return for worsening of or out of control symptoms. Orders Ordered: ED Orders 09/04/24 13:28 EKG-12 Lead Stat 09/04/24 13:30 Complete Blood Count AUTO DIFF Stat Comprehensive Metabolic Panel Stat Lipase Stat 09/04/24 18:14 CT abdomen pelvis w con Stat 09/04/24 18:41 Lactate (Lactic Acid) Stat MAG [Magnesium] Stat Procalcitonin Stat TSH [Thyroid Stimulating Hormone] Stat Sodium Chloride (Normal Saline 0.9%) 1,000 mls @ 1,000 mls/hr IV BOLUS ONE Stop: 09/04/24 19:25 Last Admin: 09/04/24 18:46 Dose: 1,000 mls/hr Documented By: KIAH Ondansetron HCl (Ondansetron 4 Mg/2 Ml Inj) 4 mg IV NOW PRN PRN Reason: Nausea And Vomiting Last Admin: 09/04/24 18:03 Dose: 4 mg Documented By: BT Ondansetron HCl (Ondansetron 4 Mg Odt) 4 mg PO NOW PRN PRN Reason: Nausea And Vomiting Vital Signs Vital signs: Vital Signs - 8 hr 09/04/24 13:22 09/04/24 16:51 Temperature 97.5 F L Pulse Rate 81 82 Respiratory Rate 20 20 Blood Pressure 145/73 H 123/69 Pulse Oximetry 99 97 Oxygen Delivery Method Room Air Room Air MDM - Nausea/Vomiting/Diarrhea Differential Diagnosis Differential diagnosis: Likely traveler's diarrhea, food poisoning, gastroenteritis, clostridium difficile infection and drug-induced nausea and vomiting Lab Data 09/04/24 13:30 09/04/24 13:30 Labs: Lab Results 09/04/24 Range/Units 13:30 WBC 14.9 H (4.5-11.0) X10^3/uL RBC 4.73 (4.0-5.2) X10^6/uL Hgb 13.0 (12.0-16.0) g/dL Hct 39.4 (36-46) % MCV 83.2 (80-100) fL MCH 27.5 (26-34) PG MCHC 33.1 (30-36) % RDW 13.7 (11.6-14.8) % Plt Count 329 (150-400) X10^3/uL Neut % (Auto) 76.9 H (50-75) % Lymph % (Auto) 12.1 L (25-40) % Thayer % (Auto) 6.6 (3-14) % Eos % (Auto) 4.0 (2-4) % Baso % (Auto) 0.4 (0-2) % Neut # (Auto) 60621 H (4438-4822) /uL Lymph # (Auto) 1800 (5394-8247) /uL Thayer # (Auto) 1000 H (0-900) /uL Eos # (Auto) 600 H (0-450) /uL Baso # (Auto) 100 (0-100) /uL Sodium 138 (137-145) mmol/L Potassium 3.9 (3.4-5.1) mmol/L Chloride 106 (98-107) mmol/L Carbon Dioxide 22 (22-32) mmol/L BUN 21 H (7-17) mg/dL Creatinine 0.92 (0.52-1.04) mg/dL Estimated GFR > 60 (>60) mL/min BUN/Creatinine Ratio 22.8 H (6-22) Glucose 148 H (70-99) mg/dL Calcium 10.1 (8.4-10.2) mg/dL Total Bilirubin 0.7 (0.2-1.3) mg/dL AST 37 H (14-36) IU/L ALT 40 H (<35) IU/L Alkaline Phosphatase 87 (38-126) U/L Total Protein 7.5 (6.3-8.2) g/dL Albumin 4.7 (3.5-5.0) g/dL Globulin 2.8 (1.7-4.1) g/dL Albumin/Globulin Ratio 1.7 (1.0-2.8) Lipase 281 (23-300) U/L ECG Data Interpretation: NSR. Rate 72. No St-T wave abnormalitis. Discharge Plan Departure Patient Disposition: Home Clinical Impression: Accidental overdose Qualifiers: Encounter type: initial encounter Qualified Code(s): T50.901A - Poisoning by unspecified drugs, medicaments and biological substances, accidental (unintentional), initial encounter Instructions: DI for Safely Taking and Storing Medications -- Adults Activity Restrictions/Additional Instructions: If there is any change or worsening in her condition such as abdominal pain, nausea or vomiting that will not respond to the medications I have prescribed you or any other concerns about dehydration or otherwise and please feel free to return to the ER or contact call 911 for evaluation anytime. Otherwise, please follow up with your PCP as soon as possible. You should not take any additional Ozempic until you have seen your PCP and clarify the dosing with them. Prescriptions: No Action hydroxyzine HCl 10 mg tablet 10 mg PO BEDTIME duloxetine [Cymbalta] 30 mg capsule,delayed release(DR/EC) See Rx Instructions PO DAILY Qty: 90 11RF Rx Instructions: 1 po in the am and 2 po in the pm, orally daily; rosuvastatin 20 mg tablet 20 mg PO DAILY Qty: 90 3RF amlodipine 10 mg tablet 10 mg PO BEDTIME Qty: 90 3RF losartan 100 mg tablet 100 mg PO DAILY Qty: 90 3RF gabapentin 300 mg capsule See Rx Instructions .ROUTE .COMPLEX Qty: 480 3RF Rx Instructions: 600 mg in the morning, 300 mg in the afternoon and 900 mg at night prior to going to bed; 600 mg in the morning, 300 mg in the afternoon and 900 mg at night prior to going to bed (DME) FreeStyle Sherrell 14 Day Sensor Kit See Rx Instructions .ROUTE .MEDSUPPLY Qty: 6 12RF Rx Instructions: use to check blood sugars daily ondansetron 4 mg tablet,disintegrating 4 mg PO Q8H PRN (Reason: nausea and vomiting) Qty: 20 2RF Ozempic 0.25 mg or 0.5 mg (2 mg/3 mL) pen injector 0.5 mg SUBCUT QWEEK Qty: 9 3RF methocarbamol 500 mg tablet 500 mg PO BEDTIME acetaminophen [Tylenol 8 Hour] 650 mg tablet extended release 1,300 mg PO Q8H PRN (Reason: Pain) acetaminophen-codeine 300-30 mg tablet 1 tab PO Q12H PRN (Reason: Pain (Scale Score 1-3)) lidocaine [Lidoderm] 5 % adhesive patch,medicated 1 patch topical DAILY Qty: 30 11RF Rx Instructions: leave on most painful area for up to 12 hrs esomeprazole magnesium [Nexium] 20 mg Capsule,Delayed Release(Dr/Ec) 20 mg PO DAILY hydrocodone-acetaminophen 5-325 mg tablet 1 tab PO Q8H PRN (Reason: pain) Qty: 7 0RF Referrals: Ayana Fernandez DO [Primary Care Provider, Family Practice] Stand Alone Forms: Patient Portal/API
[2024-09-04 19:13] LABS: Lactate (Lactic Acid) 0.9 mmol/L (0.7-2.1); Magnesium 2.0 mg/dL (1.6-2.3)
[2024-09-04 19:31] LABS: Procalcitonin 0.165 ng/mL (<0.5)
[2024-09-04] MEDS: ONDANSETRON 4 MG ODT PREPACK 1 BOTTLE MISC (19:38)
[2024-09-04 19:51] LABS: Thyroid Stimulating Hormone 0.621 uIU/mL (0.47-4.68)
== END 2024-09-04 19:44 | disposition home or self-care (01) ==
PROVIDERS: Emergency Medicine; Emergency Provider Emergency Medicine; PCP Family Medicine
DX: T38.3X1A Poisoning by insulin and oral hypoglycemic [antidiabetic] drugs, accidental (unintentional), initial encounter (principal); R11.2 Nausea with vomiting, unspecified; R19.7 Diarrhea, unspecified
CPT/HCPCS: 36415; 80053; 83605; 83690; 83735; 84145; 84443; 85025; 93005; 96361; 96374; 99284; J2405

== ENCOUNTER → 2024-09-12 12:40 | Outpatient (CLI) | payer OTHER, SELFPAY ==
[2022-12-08 11:07] VITALS: BMI 37.6
--- NOTE | 2024-09-12 13:40 | DIET.OUTPTC ---
Dietary Outpatient Consult Consult Date: 09/12/24 Assessment:?68 y F referred to dietitian for obesity, type 2 DM and hypertension Pt recently took 2mg of Ozempic over .5 mg. Went to ER for diarrhea and dehydration. Consequently as she wasn't feeling well for this 2 weeks, she lost 7 lb. Restarting at .5 mg this Monday. Now experiencing some constipation. Saw electrostatic painter, got medications to help sleep. Is actually on Sherrell CGM, brought the foundry equipment mechanic today, but shows CGM and its placed incorrectly on the top front of arm. Only readings for 2 days. BG within range,except for after coffee and creamer this morning BG went up to 190ish. Didn't have the protein shake this morning. Usually doing the protein shake in morning and no regular sodas. Using hunger fullness scale at dinner. Diet recall: B- 1 c coffee with 1/4 c international delight lithuanian vanilla creamer, 1 premier protein drink Dinner: 1x/month out to eat at [employer] (fish and chips and water) or [employer] (tuna sandwich, chips, regular soda) or steak. Sometimes cooks at home - lately pork, potato (whole large one) and veg. 2x/wk ice cream bed by 7pm 11p-3am: slice of cake Fluids: water (1/2 gal with crystal light), milk, sugar free tea GI symptoms: BM daily type 1,2,or 4 on stool chart. Acid reflux well controlled with medication. Pending MBS. Ht:?5 ft 2 in? Wt: 204 lb 8 oz?? Weight hx: Weight at PCP office on 08/14/24: 211 lb and 4 oz Activity: gardening and walking in morning, chronic pain and ortho issues limit activity Pertinent Labs: 9.5% A1c 08/14/24, TG 277 and HDL 37 on 05/29/24, vit D 29.5 on 08/08/24 Nutrition Diagnosis:? Altered nutrition related lab values (A1c%) r/t excessive CHO intake, inconsistent CHO intake aeb dietary recall with binge-like eating at night, 1 large meal per day, regular soda Interventions:? Discussed and provided appropriate resources on the following: Mental health referral, pt agreeable. Messaged provider group. Reviewed fiber sources and having 2 more servings daily Discussed food swaps when out to eat Discussed night time eating and pairing with protein source Correct placement of CGM Goals: -Establish with therapist to work out underlying trauma and associated binge-like eating at night -Add in 2 more servings of fiber form handout list provided today to help BMs -Place CGM on back of arm, showed correct placement -Grilled fish over fried -Half potato at dinner and double the veg serving EER:? 30-45 g CHO at meals Monitoring/Evaluations:? F/u in 3 wks Electronically Signed by: Gertrudis Villa Clinical Dietitian [address] [address]
== END ==
LOC: DIET 12:40
PROVIDERS: PCP Family Medicine; Referring Provider Family Medicine
DX: E66.9 Obesity, unspecified (principal); E11.9 Type 2 diabetes mellitus without complications; I10 Essential (primary) hypertension; K59.00 Constipation, unspecified; Z79.85 Long-term (current) use of injectable non-insulin antidiabetic drugs; Z71.3 Dietary counseling and surveillance
CPT/HCPCS: 97803

== ENCOUNTER → 2024-09-19 08:21 | Outpatient (CLI) | payer OTHER, SELFPAY ==
[2022-12-08 11:07] VITALS: BMI 37.6
--- NOTE | 2024-09-19 11:08 | ST.SWALLOW ---
Visit Care Team Role Provider Type Ayana Fernandez DO Attending Provider Physician Primary Care Provider Referring Provider Specialty: Family Practice Address: [address] [place] [address], [address], [place], [address] Email: [email or web address] Modified Barium Swallow Study MANAGEMENT ASSOCIATE Modified Barium Swallow Study Start: 09/19/24 09:53 Freq: Status: Active Protocol: Document 09/19/24 09:56 LNK (Rec: 09/19/24 11:07 LNK Desktop) Modified Barium Swallow Study Total Time Visit Start Time 09:00 Visit Stop Time 09:30 Total Visit Minutes [address] Fernandez Reason for Referral dysphagia; frequent cough Patient Information Identification Type Name,Date of Patient History Pt was seen for a Modified Barium Swallow Study with c /o coughing when eating drinking. She also described a lot of phlegm in her throat during meals. Her coughing seems to be related to the phlegm. Pt has a PMH that included ACDF surgery (C4-C7), GERD, lumbar fusion surgery, EGD. The results of the EGD (05/15/24) were reported to be unremarkable. With further discussion of her swallowing difficulty, the pt stated she coughs soon after eating in response to the phlegm. She denied choking or food/liquid going down the wrong way. She could not name any specific food, liquid or medication that would trigger the cough. Pt added that this has been going on for a long time. She could not remember when he had the ACDF or if her coughing started following her ACDF surgery. Subjective Pt was seated in the fluoroscopy chair with directions Observations and procedures described for her. She indicated she understood and agreed to proceed. Patient Positioning Position View Lat-A/P Imaging Lateral View Textures Administered Trials Presented Thin Liquid via Spoon (IDDSI 0),Thin Liquid via Cup ( IDDSI 0),Extremely Thick Liquid via Spoon (IDDSI 4), Regular (IDDSI 7) Barium Tablet Yes The IDDSI Framework Protocol: IDDSI.1 Oral Impairment Source: The Modified Barium Swallow Impairment Profile (MBSImP??) Lip Closure No labial escape Tongue Control Cohesive bolus between tongue to palatal seal During Bolus Hold Bolus Preparation/ Timely & efficient chewing & mashing Mastication Bolus Transport/ Brisk tongue motion Lingual Motion Oral Residue Complete oral clearance Initiation of Bolus head in valleculae Pharyngeal Swallow Additional Oral Oral phase of swallow was observed to be WNL Impairment *OME and DKS were observed to be WNL. Observations *Dentition natural and in good hygiene *Mastication observed with rotary chew pattern. *Good bolus formation, control and AP transition. *Velopharyngeal closure was WNL. Pharyngeal Impairment Source: The Modified Barium Swallow Impairment Profile (MBSImP??) Soft Palate No bolus between soft palate & pharyngeal wall Elevation Laryngeal Elevation Part.sup.move.thyroid cart/part.approx.arytenoids to epiglot.petiole Anterior Hyoid Complete anterior movement Excursion Epiglottic Movement Complete inversion Laryngeal Vestibular Complete; no air/contrast in laryngeal vestibule Closure Pharyngeal Stripping Present - complete Wave Pharyngoesophageal Complete distention & complete duration; no obstruction Segment Opening of flow Tongue Base No contrast between tongue base & posterior pharyngeal Retraction wall Pharyngeal Residue Complete pharyngeal clearance Additional Pharyngeal phase of swallow WNL Pharyngeal *Adequate hyolaryngeal elevation and movement Impairment *Complete epiglottal inversion Observations *UES duration and extension adequate *Trace to no contrast residual within pharynx *No laryngeal penetration or tracheal aspiration was observed NOTE: Following the above trials, the pt started to cough a dry, rough cough to get rid of the phlegm. This cough persisted throughout the remainder of the MBSS. There was no evidence of penetration or aspiration that would trigger her coughing. A/P View Textures Administered Trials Presented Thin Liquid via Cup (IDDSI 0) The IDDSI Framework Protocol: IDDSI.1 A/P View Observations Pharyngeal Complete Contraction Esophageal Clearance Esophageal retention Upright Position Vocal Fold Function Good Esophageal Function Slowed Clearing,Stasis Additional A-P Thin barium liquid trial, semi-solid texture trial, and Observations calibrated barium tablet trial were observed *Upon changing to AP position, a moderate amount of residue within the upper esophagus (near clavicals) from prior trials (lateral position) was noted. Partially cleared with water wash *Retro-flow of residue noted *Thin barium liquid cleared to the stomach as expected *The semi-solid texture trial indicated esophageal retention from mid to upper esophagus. *A calibrated barium tablet was observed to stop at LES and did not clear to the stomach despite additional swallow of water. MBSS stopped before tablet cleared to the stomach Clinical Impressions Dysphagia Type Esophageal Findings Oral and pharyngeal phases of pt's swallow were WNL. Stasis, dysmotility, and slow clearance of esophageal contents (semi-solid and barium tablet trials) noted during esophageal phase. Barium tablet stopped at the LES and remained despite additional water swallows No penetration or aspiration observed GI referral is recommended to further assess and treat esophageal symptoms is recommended. Recommend pt continue to self-modify diet as needed, utilize slow rate, remain upright during PO intake and for at least 30-minutes after, and alternate liquids and solids to assist in mitigating esophageal symptoms. Patient Appropriate No for Therapy Recommendations Diet Comments no diet change; alternating liquids solids recommended to ease bous flow Aspiration Precautions Recommended Upright at 90 Degrees,Alternate Liquids/Solids,Small Precautions Bites/Sips Treatment Plan Recommended GI Consult Referrals Therapy Strategy Small Bites and Sips,Alternate Liquids/Solids Recommendations
== END ==
PROVIDERS: PCP Family Medicine; Referring Provider Family Medicine; Visit Provider Family Medicine
DX: R13.10 Dysphagia, unspecified (principal); K22.89 Other specified disease of esophagus
CPT/HCPCS: 74230; 92611

== ENCOUNTER → 2024-11-07 10:32 | Outpatient (CLI) | payer MEDICARE, OTHER, SELFPAY ==
[2022-12-08 11:07] VITALS: BMI 37.6
[2024-11-07 11:35] LABS: Hemoglobin A1C% w Est Avg Glu 7.0 % (4.0-6.0)
[2024-11-07 11:39] LABS: Blood Urea Nitrogen 17 mg/dL (7-17); Calcium 10.1 mg/dL (8.4-10.2); Carbon Dioxide 26 mmol/L (22-32); Chloride 104 mmol/L (98-107); Estimated Glomerular Filt Rate > 60 mL/min (>60); Glucose 125 mg/dL (70-99); HEMOLYSIS < 15 (0-50); Potassium 4.5 mmol/L (3.4-5.1); Sodium 140 mmol/L (137-145)
== END ==
PROVIDERS: PCP Family Medicine; Referring Provider Family Medicine; Visit Provider Family Medicine
DX: E11.9 Type 2 diabetes mellitus without complications (principal); E83.52 Hypercalcemia; I10 Essential (primary) hypertension
CPT/HCPCS: 36415; 80048; 83036

== ENCOUNTER → 2024-12-11 17:21 | Outpatient (CLI) | payer MEDICARE, OTHER, SELFPAY ==
[2024-11-13 13:29] VITALS: BMI 37.6
[2024-12-11 17:48] LABS: Hemoglobin A1C% w Est Avg Glu 7.0 % (4.0-6.0)
[2024-12-11 18:02] LABS: Alanine Aminotransferase 39 IU/L (<35); Albumin 4.8 g/dL (3.5-5.0); Albumin Globulin Ratio 1.8 (1.0-2.8); Alkaline Phosphatase 76 U/L (38-126); Blood Urea Nitrogen 26 mg/dL (7-17); Estimated Glomerular Filt Rate > 60 mL/min (>60); Globulin 2.6 g/dL (1.7-4.1); Total Protein 7.4 g/dL (6.3-8.2)
[2024-12-11 18:24] LABS: HEMOLYSIS < 15 (0-50)
== END ==
PROVIDERS: PCP Family Medicine; Referring Provider Physician Assistant Medical; Visit Provider Physician Assistant Medical
DX: E11.9 Type 2 diabetes mellitus without complications (principal); B35.1 Tinea unguium
CPT/HCPCS: 80076; 82565; 83036; 84520

== ENCOUNTER → 2025-02-18 11:33 | Outpatient (CLI) | payer MEDICARE, OTHER, SELFPAY ==
[2024-11-13 13:29] VITALS: BMI 37.6
[2025-02-18 12:31] LABS: Hemoglobin A1C% w Est Avg Glu 7.3 % (4.0-6.0)
== END ==
PROVIDERS: PCP Family Medicine; Referring Provider Family Medicine; Visit Provider Family Medicine
DX: E11.9 Type 2 diabetes mellitus without complications (principal); I10 Essential (primary) hypertension
CPT/HCPCS: 36415; 83036